=== PATIENT | female | born 1960 | race Caucasian/White ===

== ENCOUNTER 2016-05-17 18:07 | Emergency (ER) | payer MEDICARE ==
[2015-02-15 12:55] VITALS: BMI 33.3
[~2016-05-17 18:07] MED LIST: CYMBALTA60 MG PO; DESERYL100 MG PO; METOPROLOL TART50 MG PO; PREDNISONE20 MG PO; PRILOSEC20 MG PO; PROVENTIL HFA6.7 GM; PROVENTIL HFA6.7 GM INH
== END 2016-05-17 20:00 | disposition home or self-care (01) ==
LOC: D.ER 18:07
DX: S63.613A Unspecified sprain of left middle finger, initial encounter (principal); W19.XXXA Unspecified fall, initial encounter; Y93.89 Activity, other specified; Y92.89 Other specified places as the place of occurrence of the external cause; J44.9 Chronic obstructive pulmonary disease, unspecified; I10 Essential (primary) hypertension

== ENCOUNTER 2016-06-02 19:56 | Emergency (ER) | payer MEDICARE ==
[2015-02-15 12:55] VITALS: BMI 33.3
== END 2016-06-02 21:23 | disposition home or self-care (01) ==
LOC: D.ER 19:56
DX: M54.5 Low back pain (principal); F31.9 Bipolar disorder, unspecified; J44.9 Chronic obstructive pulmonary disease, unspecified; I10 Essential (primary) hypertension; E87.6 Hypokalemia

== ENCOUNTER 2016-06-09 14:43 | Emergency (ER) | payer MEDICARE ==
[2015-02-15 12:55] VITALS: BMI 33.3
== END 2016-06-09 18:17 | disposition home or self-care (01) ==
LOC: D.ER 14:43
DX: S89.92XA Unspecified injury of left lower leg, initial encounter (principal); X58.XXXA Exposure to other specified factors, initial encounter; Y93.89 Activity, other specified; Y92.019 Unspecified place in single-family (private) house as the place of occurrence of the external cause; F31.9 Bipolar disorder, unspecified; J44.9 Chronic obstructive pulmonary disease, unspecified; I10 Essential (primary) hypertension

== ENCOUNTER 2016-06-12 00:48 | Emergency (ER) | payer MEDICARE ==
[2015-02-15 12:55] VITALS: BMI 33.3
[2016-06-12 01:21] LABS: BASOPHILS 0.4 % (0.0-2.0); EOSINOPHILS 1.9 % (0-7); HEMATOCRIT 34.9 % (36.0-48.0); HEMOGLOBIN 11.6 g/dL (12-16); IMMATURE GRANULOCYTES 0.1 % (0-5); LYMPHOCYTES 29.2 % (15-50); MCH 31.2 pg (26.0-34.0); MCHC 33.2 g/dL (31.0-37.0); MCV 93.8 fL (80.0-100.0); MEAN PLATELET VOLUME 10.2 fL (7.4-10.4); MONOCYTES 6.6 % (2-11); NEUTROPHILS 61.8 % (40-80); PLATELET COUNT 306 10x3/uL (130-400); RBC 3.72 10x6/uL (4.00-5.40); RDW 13.3 % (11.5-14.5); WBC 6.8 10x3/uL (4.8-10.8)
[2016-06-12 01:34] LABS: ALBUMIN 3.5 g/dL (3.4-5.0); ALKALINE PHOSPHATASE 92 U/L (46-116); ALT (SGPT) 31 U/L (10-68); CALC OSMOLALITY 283 mosm/kg (275-300); CALCIUM 8.9 mg/dL (8.5-10.1); CARBON DIOXIDE 31.5 mmol/L (21.0-32.0); CHLORIDE - SERUM 102 mmol/L (98-107); CREATININE - SERUM 0.9 mg/dL (0.6-1.3); GLUCOSE 97 mg/dL (74-106); POTASSIUM - SERUM 4.2 mmol/L (3.5-5.1); PROTEIN - SERUM 6.8 g/dL (6.4-8.2); SODIUM 141 mmol/L (136-145); UREA NITROGEN 21 mg/dL (7-18); eGFR NON AFRICAN AMERICAN 69 mL/min (90-120)
[2016-06-12 01:45] LABS: CKMB 0.6 U/L (0.0-3.6); CREATINE KINASE 76 UL (21-215); TROPONIN-I < 0.017 ng/mL (0.000-0.060)
== END 2016-06-12 02:03 | disposition home or self-care (01) ==
LOC: D.ER 00:48
PROVIDERS: Emergency Medicine
DX: R07.89 Other chest pain (principal); K21.9 Gastro-esophageal reflux disease without esophagitis; F31.9 Bipolar disorder, unspecified; I10 Essential (primary) hypertension; E87.6 Hypokalemia

== ENCOUNTER 2016-06-15 19:42 | Emergency (ER) | payer MEDICARE ==
[2015-02-15 12:55] VITALS: BMI 33.3
== END 2016-06-15 20:30 | disposition home or self-care (01) ==
LOC: D.ER 19:42
DX: G43.909 Migraine, unspecified, not intractable, without status migrainosus (principal); J44.9 Chronic obstructive pulmonary disease, unspecified; I10 Essential (primary) hypertension; F31.9 Bipolar disorder, unspecified; E87.6 Hypokalemia; K21.9 Gastro-esophageal reflux disease without esophagitis

== ENCOUNTER 2016-06-17 19:17 | Emergency (ER) | payer MEDICARE ==
[2015-02-15 12:55] VITALS: BMI 33.3
== END 2016-06-17 22:40 | disposition home or self-care (01) ==
LOC: D.ER 19:17
DX: M54.5 Low back pain (principal); F31.9 Bipolar disorder, unspecified; J44.9 Chronic obstructive pulmonary disease, unspecified; K21.9 Gastro-esophageal reflux disease without esophagitis; I10 Essential (primary) hypertension; E87.6 Hypokalemia; F17.200 Nicotine dependence, unspecified, uncomplicated

== ENCOUNTER 2016-06-20 14:10 | Emergency (ER) | payer MEDICARE ==
[2015-02-15 12:55] VITALS: BMI 33.3
[2016-06-20 14:38] LABS: BASOPHILS 0.3 % (0.0-2.0); HEMATOCRIT 36.2 % (36.0-48.0); LYMPHOCYTES 27.7 % (15-50); MCHC 33.1 g/dL (31.0-37.0); MCV 93.5 fL (80.0-100.0); MEAN PLATELET VOLUME 10.2 fL (7.4-10.4); MONOCYTES 6.2 % (2-11); NEUTROPHILS 63.8 % (40-80); PLATELET COUNT 319 10x3/uL (130-400); RBC 3.87 10x6/uL (4.00-5.40); RDW 13.4 % (11.5-14.5); WBC 6.1 10x3/uL (4.8-10.8)
[2016-06-20 15:26] LABS: ALBUMIN 3.9 g/dL (3.4-5.0); ALKALINE PHOSPHATASE 99 U/L (46-116); ALT (SGPT) 26 U/L (10-68); BILIRUBIN - TOTAL 0.33 mg/dL (0.2-1.3); CALC OSMOLALITY 288 mosm/kg (275-300); CALCIUM 9.2 mg/dL (8.5-10.1); CARBON DIOXIDE 29.6 mmol/L (21.0-32.0); CHLORIDE - SERUM 104 mmol/L (98-107); CKMB 1.3 U/L (0.0-3.6); CREATINE KINASE 32 UL (21-215); CREATININE - SERUM 0.8 mg/dL (0.6-1.3); GLUCOSE 97 mg/dL (74-106); POTASSIUM - SERUM 3.7 mmol/L (3.5-5.1); PROTEIN - SERUM 6.8 g/dL (6.4-8.2); SODIUM 143 mmol/L (136-145); UREA NITROGEN 25 mg/dL (7-18); eGFR NON AFRICAN AMERICAN 79 mL/min (90-120)
[2016-06-20 15:27] LABS: TROPONIN-I < 0.017 ng/mL (0.000-0.060)
== END 2016-06-20 16:42 | disposition home or self-care (01) ==
LOC: D.ER 14:10
PROVIDERS: Emergency Medicine
DX: R07.89 Other chest pain (principal); R51 Headache; B34.9 Viral infection, unspecified; I10 Essential (primary) hypertension; F31.9 Bipolar disorder, unspecified; J44.9 Chronic obstructive pulmonary disease, unspecified; K21.9 Gastro-esophageal reflux disease without esophagitis

== ENCOUNTER 2016-06-22 15:41 | Emergency (ER) | payer MEDICARE ==
[2015-02-15 12:55] VITALS: BMI 33.3
== END 2016-06-22 20:58 | disposition home or self-care (01) ==
LOC: D.ER 15:41
DX: G43.909 Migraine, unspecified, not intractable, without status migrainosus (principal); R11.2 Nausea with vomiting, unspecified; F31.9 Bipolar disorder, unspecified

== ENCOUNTER 2016-06-24 19:16 | Emergency (ER) | payer MEDICARE ==
[2015-02-15 12:55] VITALS: BMI 33.3
== END 2016-06-24 22:45 | disposition home or self-care (01) ==
LOC: D.ER 19:16
DX: M54.5 Low back pain (principal); F31.9 Bipolar disorder, unspecified; I10 Essential (primary) hypertension

== ENCOUNTER 2016-06-28 11:37 | Emergency (ER) | payer MEDICARE ==
[2015-02-15 12:55] VITALS: BMI 33.3
== END 2016-06-28 14:40 | disposition home or self-care (01) ==
LOC: D.ER 11:37
DX: M25.461 Effusion, right knee (principal); F31.9 Bipolar disorder, unspecified; I10 Essential (primary) hypertension

== ENCOUNTER 2016-07-02 16:28 | Emergency (ER) | payer MEDICARE ==
[2015-02-15 12:55] VITALS: BMI 33.3
== END 2016-07-02 17:18 | disposition home or self-care (01) ==
LOC: D.ER 16:28
DX: M25.472 Effusion, left ankle (principal); S99.912A Unspecified injury of left ankle, initial encounter; W19.XXXA Unspecified fall, initial encounter; Y93.89 Activity, other specified; Y92.019 Unspecified place in single-family (private) house as the place of occurrence of the external cause

== ENCOUNTER 2016-07-04 15:23 | Emergency (ER) | payer MEDICARE ==
[2015-02-15 12:55] VITALS: BMI 33.3
== END 2016-07-04 17:30 | disposition home or self-care (01) ==
LOC: D.ER 15:23
DX: J20.9 Acute bronchitis, unspecified (principal); F31.9 Bipolar disorder, unspecified; I10 Essential (primary) hypertension; J44.9 Chronic obstructive pulmonary disease, unspecified; K21.9 Gastro-esophageal reflux disease without esophagitis; G47.00 Insomnia, unspecified

== ENCOUNTER 2016-07-09 16:02 | Emergency (ER) | payer MEDICARE ==
[2015-02-15 12:55] VITALS: BMI 33.3
== END 2016-07-09 16:06 | disposition left against medical advice (07) ==
LOC: D.ER 16:02
DX: Z02.9 Encounter for administrative examinations, unspecified (principal)

== ENCOUNTER → 2016-07-09 17:47 | Emergency (ER) | payer MEDICARE ==
[2015-02-15 12:55] VITALS: BMI 33.3
== END | disposition left against medical advice (07) ==
LOC: D.ER 17:47
DX: Z02.9 Encounter for administrative examinations, unspecified (principal)

== ENCOUNTER 2016-07-09 21:07 | Emergency (ER) | payer MEDICARE ==
[2015-02-15 12:55] VITALS: BMI 33.3
== END 2016-07-10 00:31 | disposition home or self-care (01) ==
LOC: D.ER 21:07
DX: M51.36 Other intervertebral disc degeneration, lumbar region (principal); M54.5 Low back pain; K21.9 Gastro-esophageal reflux disease without esophagitis; F31.9 Bipolar disorder, unspecified; J44.9 Chronic obstructive pulmonary disease, unspecified; I10 Essential (primary) hypertension; G47.00 Insomnia, unspecified

== ENCOUNTER 2016-07-10 16:42 | Emergency (ER) | payer MEDICARE ==
[2015-02-15 12:55] VITALS: BMI 33.3
== END 2016-07-10 19:17 | disposition home or self-care (01) ==
LOC: D.ER 16:42
DX: R10.13 Epigastric pain (principal); F43.9 Reaction to severe stress, unspecified

== ENCOUNTER 2016-07-14 17:47 | Emergency (ER) | payer MEDICARE ==
[2015-02-15 12:55] VITALS: BMI 33.3
== END 2016-07-14 19:59 | disposition home or self-care (01) ==
LOC: D.ER 17:47
DX: M54.5 Low back pain (principal)

== ENCOUNTER 2016-07-18 14:09 | Emergency (ER) | payer MEDICARE ==
[2015-02-15 12:55] VITALS: BMI 33.3
== END 2016-07-18 16:18 | disposition home or self-care (01) ==
LOC: D.ER 14:09
DX: G43.909 Migraine, unspecified, not intractable, without status migrainosus (principal); K21.9 Gastro-esophageal reflux disease without esophagitis; F31.9 Bipolar disorder, unspecified; J44.9 Chronic obstructive pulmonary disease, unspecified; I10 Essential (primary) hypertension; G47.00 Insomnia, unspecified

== ENCOUNTER 2016-07-27 17:51 | Emergency (ER) | payer MEDICARE ==
[2015-02-15 12:55] VITALS: BMI 33.3
== END 2016-07-28 01:22 | disposition left against medical advice (07) ==
LOC: D.ER 17:51
DX: R07.9 Chest pain, unspecified (principal)

== ENCOUNTER 2016-07-28 19:40 | Emergency (ER) | payer MEDICARE ==
[2015-02-15 12:55] VITALS: BMI 33.3
== END 2016-07-28 21:05 | disposition home or self-care (01) ==
LOC: D.ER 19:40
DX: F41.9 Anxiety disorder, unspecified (principal); K21.9 Gastro-esophageal reflux disease without esophagitis; F31.9 Bipolar disorder, unspecified; J44.9 Chronic obstructive pulmonary disease, unspecified; F32.9 Major depressive disorder, single episode, unspecified; I10 Essential (primary) hypertension; G47.00 Insomnia, unspecified

== ENCOUNTER 2016-08-02 18:19 | Emergency (ER) | payer MEDICARE ==
[2015-02-15 12:55] VITALS: BMI 33.3
[2016-08-02 19:17] LABS: BASOPHILS 0.5 % (0.0-2.0); EOSINOPHILS 1.6 % (0-7); HEMATOCRIT 35.9 % (36.0-48.0); IMMATURE GRANULOCYTES 0.2 % (0-5); LYMPHOCYTES 25.4 % (15-50); MCH 31.1 pg (26.0-34.0); MCHC 33.4 g/dL (31.0-37.0); MEAN PLATELET VOLUME 9.2 fL (7.4-10.4); MONOCYTES 7.3 % (2-11); PLATELET COUNT 379 10x3/uL (130-400); RBC 3.86 10x6/uL (4.00-5.40); RDW 13.7 % (11.5-14.5); WBC 6.3 10x3/uL (4.8-10.8)
[2016-08-02 19:18] LABS: APPEARANCE CLEAR (CLEAR); BILIRUBIN NEGATIVE (NEGATIVE); COLOR YELLOW (YELLOW); GLUCOSE NEGATIVE (NEGATIVE); KETONE NEGATIVE (NEGATIVE); LEUKOCYTE ESTERASE NEGATIVE (NEGATIVE); NITRITE NEGATIVE (NEGATIVE); PROTEIN NEGATIVE (NEGATIVE); SPECIFIC GRAVITY 1.015 (1.005-1.020); UROBILINOGEN NORMAL (NORMAL)
[2016-08-02 19:51] LABS: AMYLASE - SERUM 64 U/L (25-115)
[2016-08-02 23:50] LABS: LIPASE 199 U/L (73-393)
== END 2016-08-03 00:55 | disposition home or self-care (01) ==
LOC: D.ER 18:19
PROVIDERS: Emergency Medicine
DX: R10.13 Epigastric pain (principal); K44.9 Diaphragmatic hernia without obstruction or gangrene; F31.9 Bipolar disorder, unspecified; I10 Essential (primary) hypertension; J44.9 Chronic obstructive pulmonary disease, unspecified

== ENCOUNTER 2016-08-05 16:05 | Emergency (ER) | payer MEDICARE ==
[2015-02-15 12:55] VITALS: BMI 33.3
== END 2016-08-05 20:55 | disposition home or self-care (01) ==
LOC: D.ER 16:05
DX: S99.922A Unspecified injury of left foot, initial encounter (principal); W22.8XXA Striking against or struck by other objects, initial encounter; Y93.89 Activity, other specified; Y92.019 Unspecified place in single-family (private) house as the place of occurrence of the external cause; J44.9 Chronic obstructive pulmonary disease, unspecified; I10 Essential (primary) hypertension; F31.9 Bipolar disorder, unspecified

== ENCOUNTER 2016-08-16 18:06 | Emergency (ER) | payer MEDICARE ==
[2015-02-15 12:55] VITALS: BMI 33.3
== END 2016-08-16 21:25 | disposition left against medical advice (07) ==
LOC: D.ER 18:06
DX: R51 Headache (principal)

== ENCOUNTER 2016-08-17 18:28 | Emergency (ER) | payer MEDICARE ==
[2015-02-15 12:55] VITALS: BMI 33.3
== END 2016-08-17 20:18 | disposition home or self-care (01) ==
LOC: D.ER 18:28
DX: S69.92XA Unspecified injury of left wrist, hand and finger(s), initial encounter (principal); W01.0XXA Fall on same level from slipping, tripping and stumbling without subsequent striking against object, initial encounter; Y93.89 Activity, other specified; Y92.019 Unspecified place in single-family (private) house as the place of occurrence of the external cause; M79.642 Pain in left hand; S63.92XA Sprain of unspecified part of left wrist and hand, initial encounter; F31.9 Bipolar disorder, unspecified; I10 Essential (primary) hypertension

== ENCOUNTER 2016-08-20 16:53 | Emergency (ER) | payer MEDICARE ==
[2015-02-15 12:55] VITALS: BMI 33.3
== END 2016-08-20 21:05 | disposition home or self-care (01) ==
LOC: D.ER 16:53
DX: G43.909 Migraine, unspecified, not intractable, without status migrainosus (principal); R51 Headache; E86.0 Dehydration; I10 Essential (primary) hypertension; F32.9 Major depressive disorder, single episode, unspecified

== ENCOUNTER 2016-08-26 10:09 | Emergency (ER) | payer MEDICARE | END 2016-08-26 11:20 | disposition home or self-care (01) | LOC: D.ER 10:09 | DX: M54.5 Low back pain (principal); I10 Essential (primary) hypertension; F31.9 Bipolar disorder, unspecified; F17.200 Nicotine dependence, unspecified, uncomplicated ==

== ENCOUNTER 2016-08-29 13:06 | Emergency (ER) | payer MEDICARE ==
[2015-02-15 12:55] VITALS: BMI 33.3
== END 2016-08-29 16:45 | disposition home or self-care (01) ==
LOC: D.ER 13:06
DX: Z03.89 Encounter for observation for other suspected diseases and conditions ruled out (principal); F31.9 Bipolar disorder, unspecified; M54.5 Low back pain; I10 Essential (primary) hypertension

== ENCOUNTER 2016-09-01 13:08 | Emergency (ER) | payer MEDICARE ==
[2015-02-15 12:55] VITALS: BMI 33.3
== END 2016-09-01 14:42 | disposition home or self-care (01) ==
LOC: D.ER 13:08
DX: M54.5 Low back pain (principal); Z03.89 Encounter for observation for other suspected diseases and conditions ruled out; I10 Essential (primary) hypertension; F31.9 Bipolar disorder, unspecified; J44.9 Chronic obstructive pulmonary disease, unspecified

== ENCOUNTER 2016-09-03 19:03 | Emergency (ER) | payer MEDICARE ==
[2015-02-15 12:55] VITALS: BMI 33.3
== END 2016-09-03 23:40 | disposition home or self-care (01) ==
LOC: D.ER 19:03
DX: J20.9 Acute bronchitis, unspecified (principal); F31.89 Other bipolar disorder; M54.5 Low back pain; J44.9 Chronic obstructive pulmonary disease, unspecified; I10 Essential (primary) hypertension

== ENCOUNTER 2016-09-08 11:32 | Emergency (ER) | payer MEDICARE ==
[2015-02-15 12:55] VITALS: BMI 33.3
== END 2016-09-08 15:05 | disposition left against medical advice (07) ==
LOC: D.ER 11:32
DX: M54.5 Low back pain (principal)

== ENCOUNTER 2016-09-08 20:31 | Emergency (ER) | payer MEDICARE ==
[2015-02-15 12:55] VITALS: BMI 33.3
== END 2016-09-08 22:03 | disposition home or self-care (01) ==
LOC: D.ER 20:31
DX: Z76.5 Malingerer [conscious simulation] (principal)

== ENCOUNTER → 2016-09-17 12:03 | Emergency (ER) | payer MEDICARE ==
[2015-02-15 12:55] VITALS: BMI 33.3
== END | disposition left against medical advice (07) ==
LOC: D.ER 12:03
DX: Z02.9 Encounter for administrative examinations, unspecified (principal)

== ENCOUNTER 2016-09-18 13:41 | Emergency (ER) | payer MEDICARE ==
[2015-02-15 12:55] VITALS: BMI 33.3
== END 2016-09-18 16:41 | disposition home or self-care (01) ==
LOC: D.ER 13:41
DX: R51 Headache (principal); I10 Essential (primary) hypertension; F31.89 Other bipolar disorder

== ENCOUNTER → 2016-09-26 | Emergency (ER) | payer MEDICARE ==
[2015-02-15 12:55] VITALS: BMI 33.3
== END ==
LOC: D.ER 18:41
DX: G43.909 Migraine, unspecified, not intractable, without status migrainosus (principal); H60.501 Unspecified acute noninfective otitis externa, right ear; F31.89 Other bipolar disorder; I10 Essential (primary) hypertension

== ENCOUNTER 2016-10-04 19:14 | Emergency (ER) | payer MEDICARE ==
[2015-02-15 12:55] VITALS: BMI 33.3
[2016-10-04 20:36] LABS: BASOPHILS 0.3 % (0-2); EOSINOPHILS 2.3 % (0-7); HEMATOCRIT 35.5 % (36.0-48.0); IMMATURE GRANULOCYTES 0.2 % (0-5); LYMPHOCYTES 29.4 % (15-50); MCH 31.9 pg (26.0-34.0); MCHC 33.8 g/dL (31.0-37.0); MCV 94.4 fL (80.0-100.0); MEAN PLATELET VOLUME 9.8 fL (7.4-10.4); MONOCYTES 4.7 % (2-11); NEUTROPHILS 63.1 % (40-80); PLATELET COUNT 344 10x3/uL (130-400); RBC 3.76 10x6/uL (4.00-5.40); RDW 13.4 % (11.5-14.5); WBC 6.4 10x3/uL (4.8-10.8)
[2016-10-04 20:57] LABS: ALBUMIN 3.6 g/dL (3.4-5.0); ALKALINE PHOSPHATASE 83 U/L (46-116); ALT (SGPT) 23 U/L (10-68); BILIRUBIN - TOTAL 0.34 mg/dL (0.2-1.3); CALC OSMOLALITY 280 mosm/kg (275-300); CALCIUM 9.3 mg/dL (8.5-10.1); CARBON DIOXIDE 29.7 mmol/L (21.0-32.0); CHLORIDE - SERUM 104 mmol/L (98-107); CREATININE - SERUM 0.8 mg/dL (0.6-1.3); GLUCOSE 90 mg/dL (74-106); POTASSIUM - SERUM 4.4 mmol/L (3.5-5.1); PROTEIN - SERUM 7.2 g/dL (6.4-8.2); SODIUM 140 mmol/L (136-145); UREA NITROGEN 18 mg/dL (7-18); eGFR NON AFRICAN AMERICAN 79 mL/min (90-120)
[2016-10-04 21:12] LABS: CKMB 0.4 U/L (0.0-3.6); CREATINE KINASE 72 UL (21-215); TROPONIN-I < 0.017 ng/mL (0.000-0.060)
== END 2016-10-05 01:06 | disposition home or self-care (01) ==
LOC: D.ER 19:14
PROVIDERS: Emergency Medicine
DX: R07.9 Chest pain, unspecified (principal); F31.89 Other bipolar disorder; I10 Essential (primary) hypertension

== ENCOUNTER 2016-10-18 18:57 | Emergency (ER) | payer MEDICARE ==
[2015-02-15 12:55] VITALS: BMI 33.3
== END 2016-10-18 23:55 | disposition home or self-care (01) ==
LOC: D.ER 18:57
DX: G43.909 Migraine, unspecified, not intractable, without status migrainosus (principal); I10 Essential (primary) hypertension; F31.89 Other bipolar disorder

== ENCOUNTER 2016-10-27 21:55 | Emergency (ER) | payer MEDICARE ==
[2015-02-15 12:55] VITALS: BMI 33.3
[2016-10-27 22:22] LABS: APPEARANCE CLEAR (CLEAR); BILIRUBIN NEGATIVE (NEGATIVE); COLOR YELLOW (YELLOW); GLUCOSE NEGATIVE (NEGATIVE); KETONE NEGATIVE (NEGATIVE); LEUKOCYTE ESTERASE TRACE (NEGATIVE); NITRITE NEGATIVE (NEGATIVE); PROTEIN NEGATIVE (NEGATIVE); UROBILINOGEN NORMAL (NORMAL)
[2016-10-27 22:23] LABS: BACTERIA MODERATE /hpf (NONE SEEN); EPITHELIAL CELLS 0-5 /hpf (0-5); RED CELLS - URINE OCC /hpf (0-5)
[2016-10-27 22:59] LABS: BASOPHILS 0.4 % (0-2); HEMATOCRIT 35.9 % (36.0-48.0); IMMATURE GRANULOCYTES 0.2 % (0-5); MCHC 33.4 g/dL (31.0-37.0); MCV 95.7 fL (80.0-100.0); MONOCYTES 9.1 % (2-11); NEUTROPHILS 57.3 % (40-80); PLATELET COUNT 346 10x3/uL (130-400); RBC 3.75 10x6/uL (4.00-5.40); WBC 5.1 10x3/uL (4.8-10.8)
== END 2016-10-28 00:51 | disposition home or self-care (01) ==
LOC: D.ER 21:55
PROVIDERS: Family Medicine
DX: R10.9 Unspecified abdominal pain (principal); N39.0 Urinary tract infection, site not specified; R11.10 Vomiting, unspecified; K21.9 Gastro-esophageal reflux disease without esophagitis; I10 Essential (primary) hypertension; F31.89 Other bipolar disorder

== ENCOUNTER 2016-10-31 20:39 | Emergency (ER) | payer MEDICARE ==
[2015-02-15 12:55] VITALS: BMI 33.3
== END 2016-10-31 22:40 | disposition home or self-care (01) ==
LOC: D.ER 20:39
DX: G43.909 Migraine, unspecified, not intractable, without status migrainosus (principal); I10 Essential (primary) hypertension; K21.9 Gastro-esophageal reflux disease without esophagitis

== ENCOUNTER 2016-11-03 17:41 | Emergency (ER) | payer MEDICARE ==
[2015-02-15 12:55] VITALS: BMI 33.3
== END 2016-11-03 20:40 | disposition home or self-care (01) ==
LOC: D.ER 17:41
DX: G43.909 Migraine, unspecified, not intractable, without status migrainosus (principal); F31.89 Other bipolar disorder; K21.9 Gastro-esophageal reflux disease without esophagitis; I10 Essential (primary) hypertension

== ENCOUNTER 2016-11-06 21:50 | Emergency (ER) | payer MEDICARE ==
[2015-02-15 12:55] VITALS: BMI 33.3
== END 2016-11-07 00:26 | disposition home or self-care (01) ==
LOC: D.ER 21:50
DX: S22.31XA Fracture of one rib, right side, initial encounter for closed fracture (principal); W19.XXXA Unspecified fall, initial encounter; I10 Essential (primary) hypertension

== ENCOUNTER 2016-11-16 09:19 | Emergency (ER) | payer MEDICARE ==
[2015-02-15 12:55] VITALS: BMI 33.3
== END 2016-11-16 10:17 | disposition home or self-care (01) ==
LOC: D.ER 09:19
DX: G43.909 Migraine, unspecified, not intractable, without status migrainosus (principal); K21.9 Gastro-esophageal reflux disease without esophagitis; I10 Essential (primary) hypertension

== ENCOUNTER 2016-11-19 22:06 | Emergency (ER) | payer MEDICARE ==
[2015-02-15 12:55] VITALS: BMI 33.3
== END 2016-11-19 23:20 | disposition home or self-care (01) ==
LOC: D.ER 22:06
DX: G43.909 Migraine, unspecified, not intractable, without status migrainosus (principal); K21.9 Gastro-esophageal reflux disease without esophagitis; I10 Essential (primary) hypertension

== ENCOUNTER 2016-11-24 01:16 | Emergency (ER) | payer MEDICARE ==
[2015-02-15 12:55] VITALS: BMI 33.3
[2016-11-24 02:14] LABS: BASOPHILS 0.5 % (0-2); EOSINOPHILS 3.2 % (0-7); HEMATOCRIT 33.1 % (36.0-48.0); HEMOGLOBIN 11.4 g/dL (12-16); IMMATURE GRANULOCYTES 0.3 % (0-5); LYMPHOCYTES 26.5 % (15-50); MCH 32.2 pg (26.0-34.0); MCHC 34.4 g/dL (31.0-37.0); MCV 93.5 fL (80.0-100.0); MEAN PLATELET VOLUME 9.8 fL (7.4-10.4); MONOCYTES 9.1 % (2-11); NEUTROPHILS 60.4 % (40-80); PLATELET COUNT 330 10x3/uL (130-400); RBC 3.54 10x6/uL (4.00-5.40); RDW 12.9 % (11.5-14.5); WBC 6.3 10x3/uL (4.8-10.8)
[2016-11-24 02:30] LABS: ALBUMIN 3.7 g/dL (3.4-5.0); ANION GAP 13.3 mmol/L (8-16); BILIRUBIN - TOTAL 0.41 mg/dL (0.2-1.3); CALCIUM 8.7 mg/dL (8.5-10.1); CARBON DIOXIDE 29.1 mmol/L (21.0-32.0); CREATININE - SERUM 1.2 mg/dL (0.6-1.3); POTASSIUM - SERUM 3.4 mmol/L (3.5-5.1)
== END 2016-11-24 03:33 | disposition home or self-care (01) ==
LOC: D.ER 01:16
PROVIDERS: Emergency Medicine
DX: R51 Headache (principal); F17.200 Nicotine dependence, unspecified, uncomplicated; F31.89 Other bipolar disorder; K21.9 Gastro-esophageal reflux disease without esophagitis; I10 Essential (primary) hypertension

== ENCOUNTER 2016-11-28 21:32 | Emergency (ER) | payer MEDICARE ==
[2015-02-15 12:55] VITALS: BMI 33.3
== END 2016-11-28 22:53 | disposition home or self-care (01) ==
LOC: D.ER 21:32
DX: G43.909 Migraine, unspecified, not intractable, without status migrainosus (principal); K21.9 Gastro-esophageal reflux disease without esophagitis; I10 Essential (primary) hypertension

== ENCOUNTER 2016-12-01 17:30 | Emergency (ER) | payer MEDICARE ==
[2015-02-15 12:55] VITALS: BMI 33.3
== END 2016-12-01 21:28 | disposition home or self-care (01) ==
LOC: D.ER 17:30
DX: G43.909 Migraine, unspecified, not intractable, without status migrainosus (principal); K21.9 Gastro-esophageal reflux disease without esophagitis; I10 Essential (primary) hypertension

== ENCOUNTER 2016-12-04 20:52 | Emergency (ER) | payer MEDICARE ==
[2015-02-15 12:55] VITALS: BMI 33.3
== END 2016-12-04 23:32 | disposition home or self-care (01) ==
LOC: D.ER 20:52
DX: M54.5 Low back pain (principal); I10 Essential (primary) hypertension

== ENCOUNTER 2016-12-07 07:31 | Emergency (ER) | payer MEDICARE ==
[2015-02-15 12:55] VITALS: BMI 33.3
== END 2016-12-07 09:05 | disposition home or self-care (01) ==
LOC: D.ER 07:31
DX: R51 Headache (principal); I10 Essential (primary) hypertension; F17.200 Nicotine dependence, unspecified, uncomplicated

== ENCOUNTER 2016-12-10 08:22 | Emergency (ER) | payer MEDICARE ==
[2015-02-15 12:55] VITALS: BMI 33.3
== END 2016-12-10 09:07 | disposition home or self-care (01) ==
LOC: D.ER 08:22
DX: G43.909 Migraine, unspecified, not intractable, without status migrainosus (principal)

== ENCOUNTER 2016-12-14 21:24 | Emergency (ER) | payer MEDICARE ==
[2015-02-15 12:55] VITALS: BMI 33.3
== END 2016-12-14 23:30 | disposition left against medical advice (07) ==
LOC: D.ER 21:24
DX: M54.5 Low back pain (principal)

== ENCOUNTER 2016-12-29 20:29 | Emergency (ER) | payer MEDICARE ==
[2015-02-15 12:55] VITALS: BMI 33.3
== END 2016-12-30 00:25 | disposition home or self-care (01) ==
LOC: D.ER 20:29
DX: G43.909 Migraine, unspecified, not intractable, without status migrainosus (principal); I10 Essential (primary) hypertension

== ENCOUNTER 2017-01-05 18:38 | Emergency (ER) | payer MEDICARE ==
[2015-02-15 12:55] VITALS: BMI 33.3
== END 2017-01-05 20:33 | disposition home or self-care (01) ==
LOC: D.ER 18:38
DX: R11.0 Nausea (principal); R51 Headache; M54.9 Dorsalgia, unspecified; I10 Essential (primary) hypertension

== ENCOUNTER 2017-01-08 19:46 | Emergency (ER) | payer MEDICARE ==
[2015-02-15 12:55] VITALS: BMI 33.3
== END 2017-01-08 20:57 | disposition home or self-care (01) ==
LOC: D.ER 19:46
DX: G43.909 Migraine, unspecified, not intractable, without status migrainosus (principal); I10 Essential (primary) hypertension

== ENCOUNTER 2017-01-12 12:52 | Emergency (ER) | payer MEDICARE ==
[2015-02-15 12:55] VITALS: BMI 33.3
== END 2017-01-12 13:39 | disposition home or self-care (01) ==
LOC: D.ER 12:52
DX: G43.909 Migraine, unspecified, not intractable, without status migrainosus (principal)

== ENCOUNTER 2017-01-14 20:34 | Emergency (ER) | payer MEDICARE ==
[2015-02-15 12:55] VITALS: BMI 33.3
== END 2017-01-14 23:21 | disposition home or self-care (01) ==
LOC: D.ER 20:34
DX: R51 Headache (principal); I10 Essential (primary) hypertension

== ENCOUNTER 2017-01-30 15:37 | Emergency (ER) | payer MEDICARE ==
[2015-02-15 12:55] VITALS: BMI 33.3
== END 2017-01-30 16:55 | disposition home or self-care (01) ==
LOC: D.ER 15:37
DX: R51 Headache (principal); I10 Essential (primary) hypertension

== ENCOUNTER 2017-02-20 16:27 | Emergency (ER) | payer MEDICARE ==
[2015-02-15 12:55] VITALS: BMI 33.3
== END 2017-02-20 19:45 | disposition home or self-care (01) ==
LOC: D.ER 16:27
DX: S70.01XA Contusion of right hip, initial encounter (principal); W19.XXXA Unspecified fall, initial encounter; Y93.89 Activity, other specified; Y92.029 Unspecified place in mobile home as the place of occurrence of the external cause; G89.29 Other chronic pain; I10 Essential (primary) hypertension

== ENCOUNTER 2017-03-02 23:56 | Emergency (ER) | payer MEDICARE ==
[2015-02-15 12:55] VITALS: BMI 33.3
== END 2017-03-03 00:55 | disposition home or self-care (01) ==
LOC: D.ER 23:56
DX: G43.909 Migraine, unspecified, not intractable, without status migrainosus (principal); I10 Essential (primary) hypertension

== ENCOUNTER 2017-03-12 21:26 | Emergency (ER) | payer MEDICARE ==
[2015-02-15 12:55] VITALS: BMI 33.3
== END 2017-03-12 22:05 | disposition home or self-care (01) ==
LOC: D.ER 21:26
DX: G43.909 Migraine, unspecified, not intractable, without status migrainosus (principal); I10 Essential (primary) hypertension

== ENCOUNTER 2017-03-14 20:26 | Emergency (ER) | payer MEDICARE ==
[2015-02-15 12:55] VITALS: BMI 33.3
== END 2017-03-14 21:27 | disposition home or self-care (01) ==
LOC: D.ER 20:26
DX: M54.5 Low back pain (principal); I10 Essential (primary) hypertension

== ENCOUNTER 2017-03-17 12:24 | Emergency (ER) | payer MEDICARE ==
[2015-02-15 12:55] VITALS: BMI 33.3
== END 2017-03-17 13:54 | disposition home or self-care (01) ==
LOC: D.ER 12:24
DX: G43.909 Migraine, unspecified, not intractable, without status migrainosus (principal); I10 Essential (primary) hypertension

== ENCOUNTER 2017-03-28 19:19 | Emergency (ER) | payer MEDICARE ==
[2015-02-15 12:55] VITALS: BMI 33.3
== END 2017-03-28 22:38 | disposition home or self-care (01) ==
LOC: D.ER 19:19
DX: R51 Headache (principal); Z76.5 Malingerer [conscious simulation]; I10 Essential (primary) hypertension

== ENCOUNTER 2017-03-29 16:02 | Emergency (ER) | payer MEDICARE ==
[2015-02-15 12:55] VITALS: BMI 33.3
== END 2017-03-29 17:57 | disposition home or self-care (01) ==
LOC: D.ER 16:02
DX: G43.909 Migraine, unspecified, not intractable, without status migrainosus (principal); I10 Essential (primary) hypertension

== ENCOUNTER 2017-04-02 22:16 | Emergency (ER) | payer MEDICARE ==
[2015-02-15 12:55] VITALS: BMI 33.3
== END 2017-04-02 23:34 | disposition home or self-care (01) ==
LOC: D.ER 22:16
DX: G43.909 Migraine, unspecified, not intractable, without status migrainosus (principal); I10 Essential (primary) hypertension

== ENCOUNTER 2017-04-03 19:51 | Emergency (ER) | payer MEDICARE ==
[2015-02-15 12:55] VITALS: BMI 33.3
== END 2017-04-03 21:45 | disposition home or self-care (01) ==
LOC: D.ER 19:51
DX: J20.9 Acute bronchitis, unspecified (principal)

== ENCOUNTER 2017-04-04 16:46 | Emergency (ER) | payer MEDICARE ==
[2015-02-15 12:55] VITALS: BMI 33.3
== END 2017-04-04 18:46 | disposition home or self-care (01) ==
LOC: D.ER 16:46
DX: J20.9 Acute bronchitis, unspecified (principal); J44.9 Chronic obstructive pulmonary disease, unspecified

== ENCOUNTER 2017-04-06 16:38 | Emergency (ER) | payer MEDICARE ==
[2015-02-15 12:55] VITALS: BMI 33.3
== END 2017-04-06 19:14 | disposition home or self-care (01) ==
LOC: D.ER 16:38
DX: G43.909 Migraine, unspecified, not intractable, without status migrainosus (principal)

== ENCOUNTER 2017-04-09 13:52 | Emergency (ER) | payer MEDICARE ==
[2015-02-15 12:55] VITALS: BMI 33.3
== END 2017-04-09 15:22 | disposition home or self-care (01) ==
LOC: D.ER 13:52
DX: S60.051A Contusion of right little finger without damage to nail, initial encounter (principal); W20.8XXA Other cause of strike by thrown, projected or falling object, initial encounter; Y93.89 Activity, other specified; Y92.019 Unspecified place in single-family (private) house as the place of occurrence of the external cause; J44.9 Chronic obstructive pulmonary disease, unspecified

== ENCOUNTER 2017-04-14 22:35 | Emergency (ER) | payer MEDICARE ==
[2015-02-15 12:55] VITALS: BMI 33.3
== END 2017-04-14 23:37 | disposition home or self-care (01) ==
LOC: D.ER 22:35
DX: G43.909 Migraine, unspecified, not intractable, without status migrainosus (principal)

== ENCOUNTER 2017-04-16 11:57 | Emergency (ER) | payer MEDICARE ==
[2015-02-15 12:55] VITALS: BMI 33.3
== END 2017-04-16 13:33 | disposition home or self-care (01) ==
LOC: D.ER 11:57
DX: G43.909 Migraine, unspecified, not intractable, without status migrainosus (principal); I10 Essential (primary) hypertension

== ENCOUNTER 2017-04-18 20:27 | Emergency (ER) | payer MEDICARE ==
[2015-02-15 12:55] VITALS: BMI 33.3
== END 2017-04-18 21:51 | disposition home or self-care (01) ==
LOC: D.ER 20:27
DX: S39.012A Strain of muscle, fascia and tendon of lower back, initial encounter (principal); X58.XXXA Exposure to other specified factors, initial encounter; Y93.89 Activity, other specified; Y92.89 Other specified places as the place of occurrence of the external cause; I10 Essential (primary) hypertension

== ENCOUNTER 2017-04-30 13:31 | Emergency (ER) | payer MEDICARE ==
[2015-02-15 12:55] VITALS: BMI 33.3
== END 2017-04-30 17:06 | disposition home or self-care (01) ==
LOC: D.ER 13:31
DX: G43.909 Migraine, unspecified, not intractable, without status migrainosus (principal); I10 Essential (primary) hypertension; F17.200 Nicotine dependence, unspecified, uncomplicated

== ENCOUNTER 2017-05-04 17:58 | Emergency (ER) | payer MEDICARE ==
[2015-02-15 12:55] VITALS: BMI 33.3
== END 2017-05-04 20:44 | disposition home or self-care (01) ==
LOC: D.ER 17:58
DX: G43.909 Migraine, unspecified, not intractable, without status migrainosus (principal); I10 Essential (primary) hypertension

== ENCOUNTER 2017-05-07 18:29 | Emergency (ER) | payer MEDICARE ==
[2015-02-15 12:55] VITALS: BMI 33.3
== END 2017-05-07 19:45 | disposition home or self-care (01) ==
LOC: D.ER 18:29
DX: J06.9 Acute upper respiratory infection, unspecified (principal); G43.909 Migraine, unspecified, not intractable, without status migrainosus; I10 Essential (primary) hypertension

== ENCOUNTER 2017-05-18 17:17 | Emergency (ER) | payer MEDICARE ==
[2015-02-15 12:55] VITALS: BMI 33.3
== END 2017-05-18 19:22 | disposition home or self-care (01) ==
LOC: D.ER 17:17
DX: G43.909 Migraine, unspecified, not intractable, without status migrainosus (principal)

== ENCOUNTER 2017-05-26 21:03 | Emergency (ER) | payer MEDICARE ==
[2015-02-15 12:55] VITALS: BMI 33.3
== END 2017-05-27 00:32 | disposition home or self-care (01) ==
LOC: D.ER 21:03
DX: R51 Headache (principal)

== ENCOUNTER 2017-05-27 20:33 | Emergency (ER) | payer MEDICARE ==
[2015-02-15 12:55] VITALS: BMI 33.3
== END 2017-05-27 22:20 | disposition home or self-care (01) ==
LOC: D.ER 20:33
DX: G43.909 Migraine, unspecified, not intractable, without status migrainosus (principal); I10 Essential (primary) hypertension

== ENCOUNTER 2017-05-30 18:34 | Emergency (ER) | payer MEDICARE ==
[2015-02-15 12:55] VITALS: BMI 33.3
== END 2017-05-30 21:34 | disposition home or self-care (01) ==
LOC: D.ER 18:34
DX: G43.909 Migraine, unspecified, not intractable, without status migrainosus (principal); I10 Essential (primary) hypertension

== ENCOUNTER 2017-06-01 23:10 | Emergency (ER) | payer MEDICARE ==
[2015-02-15 12:55] VITALS: BMI 33.3
== END 2017-06-02 01:47 | disposition home or self-care (01) ==
LOC: D.ER 23:10
DX: G43.909 Migraine, unspecified, not intractable, without status migrainosus (principal); I10 Essential (primary) hypertension

== ENCOUNTER 2017-06-05 15:52 | Emergency (ER) | payer MEDICARE ==
[2015-02-15 12:55] VITALS: BMI 33.3
== END 2017-06-05 17:25 | disposition home or self-care (01) ==
LOC: D.ER 15:52
DX: R51 Headache (principal); Z76.5 Malingerer [conscious simulation]; I10 Essential (primary) hypertension

== ENCOUNTER 2017-06-06 19:00 | Emergency (ER) | payer MEDICARE ==
[2015-02-15 12:55] VITALS: BMI 33.3
== END 2017-06-06 23:02 | disposition home or self-care (01) ==
LOC: D.ER 19:00
DX: G43.909 Migraine, unspecified, not intractable, without status migrainosus (principal); I10 Essential (primary) hypertension

== ENCOUNTER → 2017-06-08 20:53 | Emergency (ER) | payer MEDICARE ==
[2015-02-15 12:55] VITALS: BMI 33.3
== END | disposition left against medical advice (07) ==
LOC: D.ER 20:53
DX: Z02.9 Encounter for administrative examinations, unspecified (principal)

== ENCOUNTER 2017-06-09 10:09 | Emergency (ER) | payer MEDICARE ==
[2015-02-15 12:55] VITALS: BMI 33.3
== END 2017-06-09 11:58 | disposition home or self-care (01) ==
LOC: D.ER 10:09
DX: G43.909 Migraine, unspecified, not intractable, without status migrainosus (principal); I10 Essential (primary) hypertension

== ENCOUNTER 2017-06-11 07:53 | Emergency (ER) | payer MEDICARE ==
[2015-02-15 12:55] VITALS: BMI 33.3
== END 2017-06-11 08:32 | disposition home or self-care (01) ==
LOC: D.ER 07:53
DX: G44.209 Tension-type headache, unspecified, not intractable (principal); I10 Essential (primary) hypertension

== ENCOUNTER 2017-07-05 21:51 | Emergency (ER) | payer MEDICARE ==
[2015-02-15 12:55] VITALS: BMI 33.3
== END 2017-07-05 23:00 | disposition home or self-care (01) ==
LOC: D.ER 21:51
DX: G43.909 Migraine, unspecified, not intractable, without status migrainosus (principal); I10 Essential (primary) hypertension

== ENCOUNTER 2017-07-15 09:25 | Emergency (ER) | payer MEDICARE ==
[2015-02-15 12:55] VITALS: BMI 33.3
== END 2017-07-15 10:54 | disposition home or self-care (01) ==
LOC: D.ER 09:25
DX: S99.922A Unspecified injury of left foot, initial encounter (principal); X58.XXXA Exposure to other specified factors, initial encounter; Y93.89 Activity, other specified; Y92.019 Unspecified place in single-family (private) house as the place of occurrence of the external cause; I10 Essential (primary) hypertension

== ENCOUNTER 2017-07-20 14:33 | Emergency (ER) | payer MEDICARE ==
[2015-02-15 12:55] VITALS: BMI 33.3
== END 2017-07-20 17:22 | disposition home or self-care (01) ==
LOC: D.ER 14:33
DX: G43.909 Migraine, unspecified, not intractable, without status migrainosus (principal); I10 Essential (primary) hypertension

== ENCOUNTER 2017-07-28 12:11 | Emergency (ER) | payer MEDICARE ==
[2015-02-15 12:55] VITALS: BMI 33.3
== END 2017-07-28 13:31 | disposition home or self-care (01) ==
LOC: D.ER 12:11
DX: G43.909 Migraine, unspecified, not intractable, without status migrainosus (principal); F17.200 Nicotine dependence, unspecified, uncomplicated; I10 Essential (primary) hypertension

== ENCOUNTER 2017-08-08 20:16 | Emergency (ER) | payer MEDICARE ==
[2015-02-15 12:55] VITALS: BMI 33.3
== END 2017-08-08 23:59 | disposition home or self-care (01) ==
LOC: D.ER 20:16
DX: G43.909 Migraine, unspecified, not intractable, without status migrainosus (principal); J06.9 Acute upper respiratory infection, unspecified; I10 Essential (primary) hypertension

== ENCOUNTER 2017-08-13 19:44 | Emergency (ER) | payer MEDICARE ==
[2015-02-15 12:55] VITALS: BMI 33.3
== END 2017-08-13 22:25 | disposition home or self-care (01) ==
LOC: D.ER 19:44
DX: G43.909 Migraine, unspecified, not intractable, without status migrainosus (principal); I10 Essential (primary) hypertension

== ENCOUNTER 2017-08-16 19:39 | Emergency (ER) | payer MEDICARE ==
[2015-02-15 12:55] VITALS: BMI 33.3
== END 2017-08-16 21:07 | disposition home or self-care (01) ==
LOC: D.ER 19:39
DX: G43.909 Migraine, unspecified, not intractable, without status migrainosus (principal); I10 Essential (primary) hypertension

== ENCOUNTER 2017-08-19 16:46 | Emergency (ER) | payer MEDICARE ==
[2015-02-15 12:55] VITALS: BMI 33.3
== END 2017-08-19 18:13 | disposition home or self-care (01) ==
LOC: D.ER 16:46
DX: G43.909 Migraine, unspecified, not intractable, without status migrainosus (principal); W01.0XXA Fall on same level from slipping, tripping and stumbling without subsequent striking against object, initial encounter; Y93.89 Activity, other specified; Y92.019 Unspecified place in single-family (private) house as the place of occurrence of the external cause; I10 Essential (primary) hypertension

== ENCOUNTER 2017-08-28 15:29 | Emergency (ER) | payer MEDICARE ==
[2015-02-15 12:55] VITALS: BMI 33.3
== END 2017-08-28 17:43 | disposition home or self-care (01) ==
LOC: D.ER 15:29
DX: G43.909 Migraine, unspecified, not intractable, without status migrainosus (principal); I10 Essential (primary) hypertension

== ENCOUNTER 2017-08-31 18:38 | Emergency (ER) | payer MEDICARE ==
[2015-02-15 12:55] VITALS: BMI 33.3
== END 2017-08-31 21:04 | disposition home or self-care (01) ==
LOC: D.ER 18:38
DX: R51 Headache (principal)

== ENCOUNTER 2017-09-03 19:41 | Emergency (ER) | payer MEDICARE ==
[2015-02-15 12:55] VITALS: BMI 33.3
== END 2017-09-03 21:45 | disposition home or self-care (01) ==
LOC: D.ER 19:41
DX: S30.0XXA Contusion of lower back and pelvis, initial encounter (principal); W18.2XXA Fall in (into) shower or empty bathtub, initial encounter; Y93.E1 Activity, personal bathing and showering; Y92.012 Bathroom of single-family (private) house as the place of occurrence of the external cause; I10 Essential (primary) hypertension

== ENCOUNTER 2017-09-10 16:45 | Emergency (ER) | payer MEDICARE ==
[2015-02-15 12:55] VITALS: BMI 33.3
[2017-09-10 17:12] LABS: BASOPHILS 0.2 % (0-2); EOSINOPHILS 3.5 % (0-7); HEMATOCRIT 36.3 % (36.0-48.0); HEMOGLOBIN 12.2 g/dL (12-16); IMMATURE GRANULOCYTES 0.3 % (0-5); LYMPHOCYTES 11.8 % (15-50); MCH 31.4 pg (26.0-34.0); MCHC 33.6 g/dL (31.0-37.0); MCV 93.6 fL (80.0-100.0); MEAN PLATELET VOLUME 9.5 fL (7.4-10.4); MONOCYTES 7.3 % (2-11); NEUTROPHILS 76.9 % (40-80); PLATELET COUNT 363 10x3/uL (130-400); RBC 3.88 10x6/uL (4.00-5.40); WBC 10.5 10x3/uL (4.8-10.8)
[2017-09-10 17:22] LABS: ALBUMIN 3.9 g/dL (3.4-5.0); ANION GAP 7.6 mmol/L (8-16); BILIRUBIN - TOTAL 0.58 mg/dL (0.2-1.3); CALCIUM 9.8 mg/dL (8.5-10.1); CREATININE - SERUM 0.9 mg/dL (0.6-1.3); POTASSIUM - SERUM 3.6 mmol/L (3.5-5.1); PROTEIN - SERUM 7.4 g/dL (6.4-8.2)
== END 2017-09-10 18:59 | disposition home or self-care (01) ==
LOC: D.ER 16:45
PROVIDERS: Family Medicine
DX: K52.9 Noninfective gastroenteritis and colitis, unspecified (principal); I10 Essential (primary) hypertension

== ENCOUNTER 2017-09-14 18:30 | Emergency (ER) | payer MEDICARE ==
[2015-02-15 12:55] VITALS: BMI 33.3
== END 2017-09-14 20:02 | disposition home or self-care (01) ==
LOC: D.ER 18:30
DX: G43.909 Migraine, unspecified, not intractable, without status migrainosus (principal); I10 Essential (primary) hypertension

== ENCOUNTER 2017-09-17 12:15 | Emergency (ER) | payer MEDICARE ==
[2015-02-15 12:55] VITALS: BMI 33.3
== END 2017-09-17 12:57 | disposition home or self-care (01) ==
LOC: D.ER 12:15
DX: G43.909 Migraine, unspecified, not intractable, without status migrainosus (principal)

== ENCOUNTER 2017-09-20 18:06 | Emergency (ER) | payer MEDICARE ==
[2015-02-15 12:55] VITALS: BMI 33.3
[2017-09-20 18:33] LABS: BASOPHILS 0.3 % (0-2); EOSINOPHILS 1.9 % (0-7); HEMATOCRIT 35.8 % (36.0-48.0); HEMOGLOBIN 12.2 g/dL (12-16); IMMATURE GRANULOCYTES 0.1 % (0-5); LYMPHOCYTES 32.2 % (15-50); MCH 31.3 pg (26.0-34.0); MCHC 34.1 g/dL (31.0-37.0); MCV 91.8 fL (80.0-100.0); MEAN PLATELET VOLUME 9.5 fL (7.4-10.4); MONOCYTES 7.8 % (2-11); NEUTROPHILS 57.7 % (40-80); PLATELET COUNT 351 10x3/uL (130-400); RDW 13.7 % (11.5-14.5)
[2017-09-20 18:51] LABS: ALBUMIN 3.5 g/dL (3.4-5.0); ALKALINE PHOSPHATASE 77 U/L (46-116); ALT (SGPT) 15 U/L (10-68); CALC OSMOLALITY 281 mosm/kg (275-300); CARBON DIOXIDE 27.5 mmol/L (21.0-32.0); CHLORIDE - SERUM 106 mmol/L (98-107); GLUCOSE 95 mg/dL (74-106); PROTEIN - SERUM 7.2 g/dL (6.4-8.2); SODIUM 140 mmol/L (136-145); UREA NITROGEN 21 mg/dL (7-18); eGFR NON AFRICAN AMERICAN 61 mL/min (90-120)
[2017-09-20 19:01] LABS: CHOL - HDL RATIO 3.2 ratio (2.3-4.1); CHOLESTEROL, TOTAL 180 mg/dL (0-200); CKMB 0.2 U/L (0.0-3.6); CREATINE KINASE 43 UL (21-215); HDL CHOLESTEROL 56 mg/dL (32-96); LDL CHOLESTEROL 104 mg/dL (0-100); LDL-HDL RATIO 1.9 ratio (1.5-3.5); TRIGLYCERIDE 100 mg/dL (30-200); TROPONIN-I < 0.017 ng/mL (0.000-0.060)
== END 2017-09-20 21:29 | disposition home or self-care (01) ==
LOC: D.ER 18:06
PROVIDERS: Family Medicine
DX: R07.81 Pleurodynia (principal); Z86.711 Personal history of pulmonary embolism

== ENCOUNTER 2017-09-22 18:50 | Emergency (ER) | payer MEDICARE ==
[2015-02-15 12:55] VITALS: BMI 33.3
== END 2017-09-22 20:26 | disposition home or self-care (01) ==
LOC: D.ER 18:50
DX: R07.81 Pleurodynia (principal); Z86.711 Personal history of pulmonary embolism; I45.10 Unspecified right bundle-branch block; I10 Essential (primary) hypertension

== ENCOUNTER 2017-09-25 17:04 | Emergency (ER) | payer MEDICARE ==
[2015-02-15 12:55] VITALS: BMI 33.3
== END 2017-09-25 18:51 | disposition home or self-care (01) ==
LOC: D.ER 17:04
DX: S83.92XA Sprain of unspecified site of left knee, initial encounter (principal); X50.1XXA Overexertion from prolonged static or awkward postures, initial encounter; Y93.89 Activity, other specified; Y92.019 Unspecified place in single-family (private) house as the place of occurrence of the external cause

== ENCOUNTER 2017-10-04 14:09 | Emergency (ER) | payer MEDICARE ==
[~2017-10-04] VITALS: Ht 152.4 cm; Wt 81.8 kg
[2017-10-04 14:34] VITALS: Ht 152.4 cm; Wt 81.8 kg
[2017-10-04] MEDS ORDERED: TOPROL XL100 MG PO (14:37)
[2017-10-04] MEDS ORDERED: AMITRIPTYLINE100 MG PO (14:38)
[2017-10-04] MEDS ORDERED: VISTARIL25 MG (14:38)
[2017-10-04] MEDS ORDERED: XARELTO20 MG PO (14:39)
[2017-10-04 16:55] VITALS: BP 166/87
== END 2017-10-04 16:49 | disposition home or self-care (01) ==
LOC: D.ER 14:09
DX: R51 Headache (principal); Z86.73 Personal history of transient ischemic attack (TIA), and cerebral infarction without residual deficits; Z86.59 Personal history of other mental and behavioral disorders; I10 Essential (primary) hypertension; J44.9 Chronic obstructive pulmonary disease, unspecified

== ENCOUNTER 2017-10-06 19:34 | Emergency (ER) | payer MEDICARE ==
[~2017-10-06] VITALS: Ht 152.4 cm; Wt 81.6 kg
[~2017-10-06 19:34] MED LIST changes: +AMITRIPTYLINE100 MG PO; +TOPROL XL100 MG PO; +VISTARIL25 MG; +XARELTO20 MG PO
[2017-10-06 19:39] VITALS: Ht 152.4 cm; Wt 81.6 kg
[2017-10-06 20:18] LABS: BASOPHILS 0.1 % (0-2); EOSINOPHILS 1.7 % (0-7); HEMATOCRIT 37.1 % (36.0-48.0); HEMOGLOBIN 12.5 g/dL (12-16); IMMATURE GRANULOCYTES 0.1 % (0-5); LYMPHOCYTES 28.2 % (15-50); MCH 31.5 pg (26.0-34.0); MCHC 33.7 g/dL (31.0-37.0); MCV 93.5 fL (80.0-100.0); MEAN PLATELET VOLUME 9.7 fL (7.4-10.4); MONOCYTES 8.2 % (2-11); NEUTROPHILS 61.7 % (40-80); PLATELET COUNT 328 10x3/uL (130-400); RBC 3.97 10x6/uL (4.00-5.40); RDW 13.7 % (11.5-14.5); WBC 6.9 10x3/uL (4.8-10.8)
[2017-10-06 20:39] LABS: ALBUMIN 3.9 g/dL (3.4-5.0); ANION GAP 11.4 mmol/L (8-16); BILIRUBIN - TOTAL 0.31 mg/dL (0.2-1.3); CALCIUM 9.7 mg/dL (8.5-10.1); CARBON DIOXIDE 29.7 mmol/L (21.0-32.0); CREATININE - SERUM 1.1 mg/dL (0.6-1.3); POTASSIUM - SERUM 4.1 mmol/L (3.5-5.1); PROTEIN - SERUM 7.7 g/dL (6.4-8.2)
[2017-10-06 20:42] LABS: APPEARANCE SLT CLOUDY (CLEAR); BILIRUBIN NEGATIVE (NEGATIVE); COLOR YELLOW (YELLOW); GLUCOSE NEGATIVE (NEGATIVE); KETONE NEGATIVE (NEGATIVE); NITRITE NEGATIVE (NEGATIVE); PROTEIN NEGATIVE (NEGATIVE); UROBILINOGEN NORMAL (NORMAL)
[2017-10-06] MEDS ORDERED: OMEPRAZOLE20 M1 PO (21:29)
[2017-10-06 21:58] VITALS: BP 138/75
== END 2017-10-06 21:59 | disposition home or self-care (01) ==
LOC: D.ER 19:34
PROVIDERS: Emergency Medicine
DX: R10.13 Epigastric pain (principal); K44.9 Diaphragmatic hernia without obstruction or gangrene; R11.0 Nausea; Z86.73 Personal history of transient ischemic attack (TIA), and cerebral infarction without residual deficits; I10 Essential (primary) hypertension; J44.9 Chronic obstructive pulmonary disease, unspecified

== ENCOUNTER 2017-10-16 15:09 | Emergency (ER) | payer MEDICARE ==
[~2017-10-16] VITALS: Ht 152.4 cm; Wt 81.8 kg
[~2017-10-16 15:09] MED LIST changes: +OMEPRAZOLE20 M1 PO
[2017-10-16 15:18] VITALS: Ht 152.4 cm; Wt 81.8 kg
[2017-10-16 17:28] VITALS: BP 149/92
== END 2017-10-16 17:04 | disposition home or self-care (01) ==
LOC: D.ER 15:09
DX: G43.909 Migraine, unspecified, not intractable, without status migrainosus (principal); R51 Headache; Z86.73 Personal history of transient ischemic attack (TIA), and cerebral infarction without residual deficits; I10 Essential (primary) hypertension; J44.9 Chronic obstructive pulmonary disease, unspecified

== ENCOUNTER 2017-10-19 17:28 | Emergency (ER) | payer MEDICARE ==
[~2017-10-19] VITALS: Ht 152.4 cm; Wt 81.8 kg
[2017-10-19 17:40] VITALS: Ht 152.4 cm; Wt 81.8 kg
[2017-10-19 18:55] LABS: BASOPHILS 0.2 % (0-2); EOSINOPHILS 1.5 % (0-7); HEMATOCRIT 36.2 % (36.0-48.0); HEMOGLOBIN 12.5 g/dL (12-16); IMMATURE GRANULOCYTES 0.4 % (0-5); LYMPHOCYTES 24.2 % (15-50); MCH 31.2 pg (26.0-34.0); MCHC 34.5 g/dL (31.0-37.0); MCV 90.3 fL (80.0-100.0); MEAN PLATELET VOLUME 9.4 fL (7.4-10.4); MONOCYTES 7.3 % (2-11); NEUTROPHILS 66.4 % (40-80); PLATELET COUNT 360 10x3/uL (130-400); RBC 4.01 10x6/uL (4.00-5.40); RDW 13.6 % (11.5-14.5); WBC 8.5 10x3/uL (4.8-10.8)
[2017-10-19] MEDS ORDERED: ZOFRAN ODT4 MG/UDTAB PO (18:55)
[2017-10-19 19:19] VITALS: BP 167/85
[2017-10-19 19:47] LABS: ALBUMIN 4.1 g/dL (3.4-5.0); ANION GAP 13.7 mmol/L (8-16); BILIRUBIN - TOTAL 0.42 mg/dL (0.2-1.3); CALCIUM 9.5 mg/dL (8.5-10.1); CARBON DIOXIDE 26.8 mmol/L (21.0-32.0); CREATININE - SERUM 0.9 mg/dL (0.6-1.3); POTASSIUM - SERUM 3.5 mmol/L (3.5-5.1); PROTEIN - SERUM 7.4 g/dL (6.4-8.2)
== END 2017-10-19 19:19 | disposition home or self-care (01) ==
LOC: D.ER 17:28
PROVIDERS: Family Medicine
DX: R51 Headache (principal); R11.2 Nausea with vomiting, unspecified

== ENCOUNTER 2017-10-22 20:01 | Emergency (ER) | payer MEDICARE ==
[~2017-10-22] VITALS: Ht 152.4 cm; Wt 81.8 kg
[~2017-10-22 20:01] MED LIST changes: +ZOFRAN ODT4 MG/UDTAB PO
[2017-10-22 20:09] VITALS: Ht 152.4 cm; Wt 81.8 kg
[2017-10-22 22:58] VITALS: BP 178/94
== END 2017-10-22 22:59 | disposition home or self-care (01) ==
LOC: D.ER 20:01
DX: S30.0XXA Contusion of lower back and pelvis, initial encounter (principal); X58.XXXA Exposure to other specified factors, initial encounter; Y93.9 Activity, unspecified; Y92.9 Unspecified place or not applicable; M54.10 Radiculopathy, site unspecified

== ENCOUNTER 2017-10-25 20:14 | Emergency (ER) | payer MEDICARE ==
[~2017-10-25] VITALS: Ht 152.4 cm; Wt 81.8 kg
[2017-10-25 20:17] VITALS: Ht 152.4 cm; Wt 81.8 kg
[2017-10-25 22:22] VITALS: BP 136/89
== END 2017-10-25 22:23 | disposition home or self-care (01) ==
LOC: D.ER 20:14
DX: G43.909 Migraine, unspecified, not intractable, without status migrainosus (principal)

== ENCOUNTER 2017-10-30 19:51 | Emergency (ER) | payer MEDICARE ==
[~2017-10-30] VITALS: Ht 152.4 cm; Wt 81.8 kg
[2017-10-30 19:55] VITALS: Ht 152.4 cm; Wt 81.8 kg
[2017-10-30] MEDS ORDERED: ZOLOFT50 MG PO (20:01)
[2017-10-30 20:27] LABS: APPEARANCE CLEAR (CLEAR); BILIRUBIN NEGATIVE (NEGATIVE); COLOR YELLOW (YELLOW); GLUCOSE NEGATIVE (NEGATIVE); KETONE SMALL mg/dL (NEGATIVE); NITRITE NEGATIVE (NEGATIVE); PROTEIN NEGATIVE (NEGATIVE); SPECIFIC GRAVITY 1.005 (1.005-1.020); UROBILINOGEN NORMAL (NORMAL)
[2017-10-30 20:27] LABS: BASOPHILS 0.2 % (0-2); EOSINOPHILS 2.3 % (0-7); HEMATOCRIT 35.8 % (36.0-48.0); IMMATURE GRANULOCYTES 0.4 % (0-5); LYMPHOCYTES 24.8 % (15-50); MCH 31.4 pg (26.0-34.0); MCHC 33.5 g/dL (31.0-37.0); MCV 93.7 fL (80.0-100.0); MEAN PLATELET VOLUME 9.6 fL (7.4-10.4); MONOCYTES 5.2 % (2-11); NEUTROPHILS 67.1 % (40-80); PLATELET COUNT 361 10x3/uL (130-400); RBC 3.82 10x6/uL (4.00-5.40); RDW 14.1 % (11.5-14.5); WBC 8.5 10x3/uL (4.8-10.8)
[2017-10-30 20:40] LABS: ALBUMIN 3.7 g/dL (3.4-5.0); ALKALINE PHOSPHATASE 93 U/L (46-116); ALT (SGPT) 15 U/L (10-68); BILIRUBIN - TOTAL 0.19 mg/dL (0.2-1.3); CALC OSMOLALITY 282 mosm/kg (275-300); CALCIUM 9.4 mg/dL (8.5-10.1); CARBON DIOXIDE 32.8 mmol/L (21.0-32.0); CHLORIDE - SERUM 103 mmol/L (98-107); CREATININE - SERUM 0.8 mg/dL (0.6-1.3); GLUCOSE 94 mg/dL (74-106); LIPASE 123 U/L (73-393); POTASSIUM - SERUM 4.1 mmol/L (3.5-5.1); PROTEIN - SERUM 7.1 g/dL (6.4-8.2); SODIUM 141 mmol/L (136-145); UREA NITROGEN 19 mg/dL (7-18); eGFR NON AFRICAN AMERICAN 79 mL/min (90-120)
[2017-10-30] MEDS ORDERED: ZOFRAN4 MG PO (23:20)
[2017-10-30 23:30] VITALS: BP 160/89
== END 2017-10-30 23:31 | disposition home or self-care (01) ==
LOC: D.ER 19:51
PROVIDERS: Family Medicine
DX: R10.9 Unspecified abdominal pain (principal); R19.7 Diarrhea, unspecified; R11.0 Nausea

== ENCOUNTER 2017-11-02 18:59 | Emergency (ER) | payer MEDICARE ==
[~2017-11-02] VITALS: Ht 152.4 cm; Wt 81.8 kg
[~2017-11-02 18:59] MED LIST changes: +ZOFRAN4 MG PO; +ZOLOFT50 MG PO
[2017-11-02 19:39] VITALS: BP 153/94; Ht 152.4 cm; Wt 81.8 kg
== END 2017-11-02 21:23 | disposition home or self-care (01) ==
LOC: D.ER 18:59
DX: G43.909 Migraine, unspecified, not intractable, without status migrainosus (principal); I10 Essential (primary) hypertension; J44.9 Chronic obstructive pulmonary disease, unspecified

== ENCOUNTER 2017-11-08 20:59 | Emergency (ER) | payer MEDICARE ==
[~2017-11-08] VITALS: Ht 152.4 cm; Wt 81.8 kg
[2017-11-08 21:09] VITALS: Ht 152.4 cm; Wt 81.8 kg
== END 2017-11-08 22:02 | disposition left against medical advice (07) ==
LOC: D.ER 20:59
DX: R51 Headache (principal)

== ENCOUNTER 2017-11-11 14:10 | Emergency (ER) | payer MEDICARE ==
[~2017-11-11] VITALS: Ht 152.4 cm; Wt 81.8 kg
[2017-11-11 14:28] VITALS: Ht 152.4 cm; Wt 81.8 kg
[2017-11-11 21:41] VITALS: BP 148/97
== END 2017-11-11 17:32 | disposition home or self-care (01) ==
LOC: D.ER 14:10
DX: S06.0X0A Concussion without loss of consciousness, initial encounter (principal); W19.XXXA Unspecified fall, initial encounter; Y93.89 Activity, other specified; Y92.019 Unspecified place in single-family (private) house as the place of occurrence of the external cause; S00.93XA Contusion of unspecified part of head, initial encounter; R51 Headache; I10 Essential (primary) hypertension; J44.9 Chronic obstructive pulmonary disease, unspecified; Z79.01 Long term (current) use of anticoagulants

== ENCOUNTER 2017-11-15 19:37 | Emergency (ER) | payer MEDICARE ==
[~2017-11-15] VITALS: Ht 152.4 cm; Wt 81.8 kg
[2017-11-15 19:56] VITALS: Ht 152.4 cm; Wt 81.8 kg
[2017-11-15 22:29] VITALS: BP 140/78
== END 2017-11-15 22:31 | disposition home or self-care (01) ==
LOC: D.ER 19:37
DX: G43.909 Migraine, unspecified, not intractable, without status migrainosus (principal); R11.0 Nausea; I10 Essential (primary) hypertension; J44.9 Chronic obstructive pulmonary disease, unspecified

== ENCOUNTER 2017-11-17 19:51 | Emergency (ER) | payer MEDICARE ==
[~2017-11-17] VITALS: Ht 152.4 cm; Wt 81.8 kg
[2017-11-17 20:06] VITALS: Ht 152.4 cm; Wt 81.8 kg
[2017-11-17] MEDS ORDERED: STADOL NASAL S2.5 ML NASAL (22:47)
[2017-11-17 23:17] VITALS: BP 124/72
== END 2017-11-17 23:18 | disposition home or self-care (01) ==
LOC: D.ER 19:51
DX: R51 Headache (principal); Z86.73 Personal history of transient ischemic attack (TIA), and cerebral infarction without residual deficits; I10 Essential (primary) hypertension; J44.9 Chronic obstructive pulmonary disease, unspecified

== ENCOUNTER 2017-11-20 18:41 | Emergency (ER) | payer MEDICARE ==
[~2017-11-20] VITALS: Ht 152.4 cm; Wt 81.8 kg
[~2017-11-20 18:41] MED LIST changes: +STADOL NASAL S2.5 ML NASAL
[2017-11-20 18:56] VITALS: Ht 152.4 cm; Wt 81.8 kg
[2017-11-20] MEDS ORDERED: MEDROL DOSE PACK4 MG PO (20:39)
[2017-11-20 21:04] VITALS: BP 149/82
== END 2017-11-20 21:04 | disposition home or self-care (01) ==
LOC: D.ER 18:41
DX: G43.909 Migraine, unspecified, not intractable, without status migrainosus (principal); S69.91XA Unspecified injury of right wrist, hand and finger(s), initial encounter; W19.XXXA Unspecified fall, initial encounter; Y93.89 Activity, other specified; Y92.019 Unspecified place in single-family (private) house as the place of occurrence of the external cause; I10 Essential (primary) hypertension; J44.9 Chronic obstructive pulmonary disease, unspecified

== ENCOUNTER 2017-11-24 10:09 | Emergency (ER) | payer MEDICARE ==
[~2017-11-24] VITALS: Ht 152.4 cm; Wt 81.8 kg
[~2017-11-24 10:09] MED LIST changes: +MEDROL DOSE PACK4 MG PO
[2017-11-24 10:19] VITALS: Ht 152.4 cm; Wt 81.8 kg
[2017-11-24 10:57] LABS: BASOPHILS 0.2 % (0-2); EOSINOPHILS 1.7 % (0-7); HEMATOCRIT 36.3 % (36.0-48.0); HEMOGLOBIN 12.6 g/dL (12-16); IMMATURE GRANULOCYTES 0.3 % (0-5); MCH 31.5 pg (26.0-34.0); MCHC 34.7 g/dL (31.0-37.0); MCV 90.8 fL (80.0-100.0); MEAN PLATELET VOLUME 9.4 fL (7.4-10.4); MONOCYTES 7.4 % (2-11); NEUTROPHILS 67.4 % (40-80); PLATELET COUNT 334 10x3/uL (130-400); RDW 13.5 % (11.5-14.5); WBC 6.5 10x3/uL (4.8-10.8)
[2017-11-24 11:20] LABS: ALBUMIN 3.6 g/dL (3.4-5.0); ALKALINE PHOSPHATASE 71 U/L (46-116); ALT (SGPT) 18 U/L (10-68); BILIRUBIN - TOTAL 0.46 mg/dL (0.2-1.3); CALC OSMOLALITY 280 mosm/kg (275-300); CALCIUM 8.6 mg/dL (8.5-10.1); CARBON DIOXIDE 30.3 mmol/L (21.0-32.0); CHLORIDE - SERUM 103 mmol/L (98-107); CREATININE - SERUM 0.9 mg/dL (0.6-1.3); GLUCOSE 105 mg/dL (74-106); POTASSIUM - SERUM 3.1 mmol/L (3.5-5.1); PROTEIN - SERUM 7.1 g/dL (6.4-8.2); SODIUM 141 mmol/L (136-145); UREA NITROGEN 13 mg/dL (7-18); eGFR NON AFRICAN AMERICAN 69 mL/min (90-120)
[2017-11-24 11:31] LABS: CKMB 0.3 U/L (0.0-3.6); CREATINE KINASE 35 UL (21-215)
[2017-11-24 11:34] LABS: TROPONIN-I < 0.017 ng/mL (0.000-0.060)
[2017-11-24] MEDS ORDERED: CYCLOBENZAPRINE10 MG PO (15:23)
[2017-11-24] MEDS ORDERED: ACETAMINOPHEN500 M1 PO (15:23)
[2017-11-24 15:54] VITALS: BP 157/88
== END 2017-11-24 16:09 | disposition home or self-care (01) ==
LOC: D.ER 10:09
PROVIDERS: Family Medicine
DX: R07.9 Chest pain, unspecified (principal); I10 Essential (primary) hypertension; J44.9 Chronic obstructive pulmonary disease, unspecified; Z86.73 Personal history of transient ischemic attack (TIA), and cerebral infarction without residual deficits; I45.10 Unspecified right bundle-branch block

== ENCOUNTER 2017-12-19 11:16 | Emergency (ER) | payer MEDICARE ==
[~2017-12-19] VITALS: Ht 152.4 cm; Wt 81.8 kg
[~2017-12-19 11:16] MED LIST changes: +ACETAMINOPHEN500 M1 PO; +CYCLOBENZAPRINE10 MG PO
[2017-12-19 11:37] VITALS: Ht 152.4 cm; Wt 81.8 kg
[2017-12-19 15:08] VITALS: BP 150/92
== END 2017-12-19 15:49 | disposition home or self-care (01) ==
LOC: D.ER 11:16
DX: G43.909 Migraine, unspecified, not intractable, without status migrainosus (principal); R11.0 Nausea; I10 Essential (primary) hypertension; J44.9 Chronic obstructive pulmonary disease, unspecified

== ENCOUNTER 2018-01-04 17:27 | Emergency (ER) | payer MEDICARE ==
[~2018-01-04] VITALS: Ht 152.4 cm; Wt 81.8 kg
[2018-01-04 17:38] VITALS: BP 162/100; Ht 152.4 cm; Wt 81.8 kg
[2018-01-05] MEDS ORDERED: AMITRIPTYLINE100 MG PO (11:48)
== END 2018-01-04 19:34 | disposition left against medical advice (07) ==
LOC: D.ER 17:27
DX: R51 Headache (principal)

== ENCOUNTER 2018-01-05 10:52 | Emergency (ER) | payer MEDICARE ==
[~2018-01-05] VITALS: Ht 152.4 cm; Wt 81.6 kg
[2018-01-05 11:02] VITALS: Ht 152.4 cm; Wt 81.6 kg
[2018-01-05] MEDS ORDERED: AMITRIPTYLINE100 MG PO (11:48)
[2018-01-05 12:18] VITALS: BP 138/88
== END 2018-01-05 12:18 | disposition home or self-care (01) ==
LOC: D.ER 10:52
DX: G43.909 Migraine, unspecified, not intractable, without status migrainosus (principal); R11.2 Nausea with vomiting, unspecified; Z86.73 Personal history of transient ischemic attack (TIA), and cerebral infarction without residual deficits; I10 Essential (primary) hypertension; J44.9 Chronic obstructive pulmonary disease, unspecified

== ENCOUNTER 2018-01-07 18:48 | Emergency (ER) | payer MEDICARE ==
[~2018-01-07] VITALS: Ht 152.4 cm; Wt 81.8 kg
[2018-01-07 18:50] VITALS: Ht 152.4 cm; Wt 81.8 kg
[2018-01-07 23:05] VITALS: BP 138/83
== END 2018-01-07 23:05 | disposition home or self-care (01) ==
LOC: D.ER 18:48
DX: G43.909 Migraine, unspecified, not intractable, without status migrainosus (principal); Z86.73 Personal history of transient ischemic attack (TIA), and cerebral infarction without residual deficits; I10 Essential (primary) hypertension; J44.9 Chronic obstructive pulmonary disease, unspecified

== ENCOUNTER 2018-01-17 12:48 | Emergency (ER) | payer MEDICARE ==
[~2018-01-17] VITALS: Ht 152.4 cm; Wt 81.8 kg
[2018-01-17 13:18] VITALS: Ht 152.4 cm; Wt 81.8 kg
[2018-01-17 15:24] VITALS: BP 161/90
== END 2018-01-17 15:24 | disposition home or self-care (01) ==
LOC: D.ER 12:48
DX: R51 Headache (principal); Z76.5 Malingerer [conscious simulation]; R11.0 Nausea; I10 Essential (primary) hypertension; J44.9 Chronic obstructive pulmonary disease, unspecified; K21.9 Gastro-esophageal reflux disease without esophagitis; F17.200 Nicotine dependence, unspecified, uncomplicated

== ENCOUNTER 2018-01-19 18:35 | Emergency (ER) | payer MEDICARE ==
[~2018-01-19] VITALS: Ht 152.4 cm; Wt 87.3 kg
[2018-01-19 18:57] VITALS: Ht 152.4 cm; Wt 87.3 kg
[2018-01-19] MEDS ORDERED: XARELTO20 MG PO (19:00)
[2018-01-19] MEDS ORDERED: SKELAXIN800 MG PO (20:23)
[2018-01-19 20:51] VITALS: BP 145/81
== END 2018-01-19 20:51 | disposition home or self-care (01) ==
LOC: D.ER 18:35
DX: S39.012A Strain of muscle, fascia and tendon of lower back, initial encounter (principal); X50.0XXA Overexertion from strenuous movement or load, initial encounter; Y93.89 Activity, other specified; Y92.019 Unspecified place in single-family (private) house as the place of occurrence of the external cause; I10 Essential (primary) hypertension; F17.200 Nicotine dependence, unspecified, uncomplicated; F31.9 Bipolar disorder, unspecified

== ENCOUNTER 2018-01-21 13:03 | Emergency (ER) | payer MEDICARE ==
[~2018-01-21] VITALS: Ht 152.4 cm; Wt 86.4 kg
[~2018-01-21 13:03] MED LIST changes: +SKELAXIN800 MG PO
[2018-01-21 13:28] VITALS: Ht 152.4 cm; Wt 86.4 kg
[2018-01-21 16:23] VITALS: BP 176/94
== END 2018-01-21 16:20 | disposition home or self-care (01) ==
LOC: D.ER 13:03
DX: G43.009 Migraine without aura, not intractable, without status migrainosus (principal); R11.0 Nausea; I10 Essential (primary) hypertension; F17.200 Nicotine dependence, unspecified, uncomplicated

== ENCOUNTER 2018-01-24 17:12 | Emergency (ER) | payer MEDICARE ==
[~2018-01-24] VITALS: Ht 152.4 cm; Wt 86.4 kg
[2018-01-24 17:18] VITALS: Ht 152.4 cm; Wt 86.4 kg
[2018-01-24 19:33] VITALS: BP 159/87
== END 2018-01-24 19:34 | disposition home or self-care (01) ==
LOC: D.ER 17:12
DX: S93.601A Unspecified sprain of right foot, initial encounter (principal); X58.XXXA Exposure to other specified factors, initial encounter; Y93.89 Activity, other specified; Y92.89 Other specified places as the place of occurrence of the external cause; I10 Essential (primary) hypertension; J44.9 Chronic obstructive pulmonary disease, unspecified

== ENCOUNTER 2018-01-26 20:43 | Emergency (ER) | payer MEDICARE ==
[~2018-01-26] VITALS: Ht 152.4 cm; Wt 81.8 kg
[2018-01-26 20:47] VITALS: Ht 152.4 cm; Wt 81.8 kg
[2018-01-26 21:41] VITALS: BP 134/87
== END 2018-01-26 21:48 | disposition home or self-care (01) ==
LOC: D.ER 20:43
DX: G43.909 Migraine, unspecified, not intractable, without status migrainosus (principal); I10 Essential (primary) hypertension; J44.9 Chronic obstructive pulmonary disease, unspecified; F17.200 Nicotine dependence, unspecified, uncomplicated

== ENCOUNTER 2018-01-28 17:22 | Observation (INO) | payer MEDICARE ==
[~2018-01-28] VITALS: Ht 152.4 cm; Wt 86.4 kg
[2018-01-28] VITALS (7 sets, daily range): BP systolic 126–154; BP diastolic 72–97
--- NOTE | ~2018-01-28 | OP ---
PATIENT NAME: JJ FIELD MEDICAL RECORD: [id number] :64 LOCATION:D.M2 D.2117 ADMISSION DATE:01/28/18 SURGEON: WILBER JENSEN MD DATE OF OPERATION: 01/29/2018 PROCEDURES: Left heart cath, LV gram, coronary angiogram. LOCAL COMPANY TANKER DRIVER: Wilber Jensen MD PROCEDURE IN DETAIL: The patient was brought to cardiac catheterization lab in stable condition. Both groins were sterilely prepped and draped. The patient had a 6-Sinhala sheath placed in the right common femoral artery, and using modified Seldinger technique, the patient then had serial catheters utilized to selectively intubate the right coronary and left coronary arteries and the LV cavity respectively. FINDINGS: 1. The left main is normal. 2. The LAD is normal. 3. The circumflex is normal. 4. The RCA is normal. HEMODYNAMICS: Ejection fraction 65%. End-diastolic pressure is normal. IMPRESSION: Normal coronary arteries. Normal LV systolic function. RECOMMENDATIONS: Look for other etiologies of the patient's chest pain syndrome. TRANSINT:[id number] Voice Confirmation ID: [id number] DOCUMENT ID: [id number] WILBER JENSEN MD CC: [id number] DICTATION DATE: 01/29/18 1056 CLINICAL BUSINESS MANAGER: 01/29/18 1809 DIS IN 01/29/18 [facility] [address] [place] [address]
--- NOTE | ~2018-01-28 | HEMODYNAMI ---
PATIENT:JJ FIELD MEDICAL RECORD: [id number] : 64 LOCATION:[facility] D.2117 ADMISSION DATE: 01/28/18 Generatedon:01/29/201810:54 Patient name: JJ FIELD Patient #: [id number] SSN: : 1960 Date of study: 01/29/2018 Page: Of Hemodynamic Procedure Report Patient Data Patient Demographics Procedure consent was obtained First Name: JJ Gender: Female Last Name: EMIR : 1960 Middle Initial: K Age: 57 year(s) Patient #: [id number] Race: Unknown Additional ID: [id number] Contact details [address]: [address] [place] [address] [address] State: [place] City: [place] Zip code: [address] Past Medical History Allergies Allergen Reaction Date Comments Reported Other allergy 01/29/2018 see chrt Admission Admission Data Admission Date: 01/28/2018 Admission Time: 23:07 Room #: D.2117 Height (in.): 59.84 BSA: 1.82 (m2) Height (cm.): 152 BMI: 37.35 (kg/m2) Weight (lbs.): 190.26 Weight (kg.): 86.3 Procedure Procedure Types Cath Procedure Diagnostic Procedure C [facility] w/Coronaries Sedation Charges Moderate Sedation up to 15 minutes Procedure Description Procedure Date Procedure Date: 01/29/2018 Procedure Start Time: 10:37 Procedure End Time: 10:54 Procedure Staff Name Function Wilber Jensen MD Performing Physician Sheri Ramirez RT Monitor Sachin Cali RN Nurse Bibi Adam RT Scrub Procedure Data Cath Procedure Fluoroscopy Diagnostic fluoroscopy Total fluoroscopy Time: 0.9 time: 0.9 min min Diagnostic fluoroscopy Total fluoroscopy dose: 267 dose: 267 mGy mGy Contrast Material Contrast Material Type Amount (ml) Isovue 300 35 Entry Location Entry Primary Successful Side Size Upsize Upsize Entry Closure Succes sful Closure Location (Fr) 1 (Fr) 2 (Fr) Remarks Device Remarks Femoral Right 5 Fr Exoseal artery Estimated blood loss: 10 ml Diagnostic catheters Device Type Used For End Catheter Placement MULTIPACK JL 4.0 5Fr Procedure catheter MULTIPACK 3DRC 5Fr Procedure catheter MULTIPACK Pigtail 5 Fr Procedure catheter Procedure Complications No complications Procedure Medications Medication Administration Route Dosage 0.9% NaCl I.V. 100 ml/hr Oxygen etCO2 Nasal cannula 2 l/min Heparin Flush Bag added to field 2 bags (1000units/500ml NS) Lidocaine 2% added to field 20 Versed I.V. 2 mg Fentanyl I.V. 50 mcg Fentanyl I.V. 50 mcg Hemodynamics Rest BSA: 1.82 (m2) O2 Consumption: Estimated: 184.65 (ml/min) O2 Consumption indexed : Estimated:101.46 (ml/min/m) Heart Rate: 84 (bpm) Pressure Samples Time Site Value (mmHg) Purpose Heart Use Rate(bpm) 10:49 LV 175/-17,13 EDP 88 Gradients Valve Time Site Site Mean SEP/DFP Peak To Heart Use 1 2 (mmHg) (sec/min) Peak Rate (mmHg) (bpm) Aortic 10:50 LV AO 88 Snapshots Pre Cath Intra NCS Post Cath Vital Signs Time Heart Resp SPO2 etCO2 NIBP (mmHg) Rhythm Pain Sedation Rate (ipm) (%) (mmHg) Status Level (bpm) 10:20:01 78 25 100 0 162/101(135) NSR 0 (11) 10(A) , No pain 10:24:53 82 23 100 37 173/108(147) NSR 0 (11) 10(A) , No pain 10:29:48 79 12 100 36.3 152/102(138) NSR 0 (11) 10(A) , No pain 10:34:39 78 21 100 37.7 159/93(130) NSR 0 (11) 10(A) , No pain 10:39:34 80 15 99 37.7 149/87(127) NSR 0 (11) 10(A) , No pain 10:44:23 82 18 99 37 159/98(135) NSR 0 (11) 10(A) , No pain 10:49:16 88 29 99 35.5 151/97(120) NSR 0 (11) 10(A) , No pain 10:54:07 87 15 100 35.5 162/101(138) NSR 0 (11) 10(A) , No pain Medications Time Medication Route Dose Verified Delivered Reason Notes Eff ectiveness by by 10:32:08 0.9% NaCl I.V. 100 Sachin Sachin Per ml/hr Viraj Cali physician RN RN 10:32:17 Oxygen etCO2 2 Sachin Sachin Per Nasal l/min Viraj Cali physician cannula RN RN 10:32:28 Heparin Flush added 2 Sachin Sachin used for Bag to bags Lorigan Viraj procedure (1000units/500ml field RN RN NS) 10:32:39 Lidocaine 2% added 20ml Sachin Sachin for local to vial Lorigan Lorigan anesthetic field RN RN 10:38:03 Versed I.V. 2 mg Sachin Sachin for Lorigan Lorigan sedation RN RN 10:38:15 Fentanyl I.V. 50 Sachin Sachin for mcg Lorigan Lorigan sedation RN RN 10:45:57 Fentanyl I.V. 50 Sachin Sachin for mcg Lorigan Lorigan sedation RN upstairs maid Log Time Note 10:03:23 Patient Height : 59.84 inches 10:03:30 Patient Weight : 190.26 lbs 10:04:11 Diagnostic Cath status Elective 10:04:14 Sheri Ramirez RT(R) sent for patient. Start room use. 10:04:16 Time tracking: Call back (After hours or weekends) 10:04:23 Plan of Care:Hemodynamics will remain stable., Cardiac rhythm will remain stable., Comfort level will be maintained., Respiratory function will remain adequate., Patient/ family verbilizes understanding of procedure., Procedure tolerated without complication., Recovers from procedure without complications.. 10:13:43 Patient received from PCU to CCL 1 Alert and oriented. Tansferred to table in Supine position. 10:13:43 Warm blankets applied, and radha hugger turned on for patient comfort. 10:13:44 Correct patient and procedure confirmed by team. 10:13:45 Signed procedure consent form obtained from patient. 10:13:46 ECG and BP/O2 sat monitors applied to patient. 10:13:47 Full Disclosure recording started 10:18:55 Vital chart was started 10:27:08 Baseline sample Acquired. 10:27:13 Rhythm: sinus rhythm 10:27:24 H&P Date Dictated: 01/28/2018 Within 30 days and on chart.. 10:27:26 Pre-procedure instructions explained to patient. 10:27:29 Family unavailable. 10:27:31 Patient NPO since Midnight. 10:27:41 Patient allergic to Other allergysee chrt 10:27:44 Is the patient allergic to Iodine/contrast media? No. 10:27:46 Is patient on blood thinner?Yes 10:28:07 xerelto 01-27 10:28:09 Patient diabetic? No. 10:28:14 Snore? Yes 10:28:15 Sleep apnea? No 10:28:20 Airway obstruction? Yes COPD 10:28:27 Patient pain scale 0/10 ?. 10:28:35 IV patent on arrival in right forearm with 0.9% NaCl at [facility]. 10:29:06 Lab results completed and on chart. 10:29:10 Right Radial & Right Groin area was prepped with chlora-prep and draped in sterile fashion 10:29:11 Alarms reviewed by R. N. 10:29:12 Sharps counted by scrub and verified by R.N. 10:29:14 Physician paged 10:32:08 0.9% NaCl 100 ml/hr I.V. was administered by Sachin Cali RN; Per physician; 10:32:17 Oxygen 2 l/min etCO2 Nasal cannula was administered by Sachin Cali RN; Per physician; 10:32:28 Heparin Flush Bag (1000units/500ml NS) 2 bags added to field was administered by Sachin Cali RN; used for procedure; 10:32:39 Lidocaine 2% 20ml vial added to field was administered by Sachin Cali RN; for local anesthetic; 10:37:10 Physician arrived 10:37:10 --------ALL STOP TIME OUT------ 10:37:11 Final Timeout: patient, procedure, and site verified with staff and physician. All members of the team are in agreement. 10:37:13 Right Radial & Right Groin site verified by team. 10:37:18 Physical assessment completed. ASA score P 2 - A patient with mild systemic disease as per Wilber Jensen MD. 10:37:23 Sedation plan: IV Moderate Sedation Medication:Versed, Fentanyl 10:37:28 Use device set Radial Dx or PCI 10:37:31 Procedure started. 10:37:52 Local anesthetic to right radial artery with Lidocaine 2% by Wilber Jensen MD.INITIAL ACCESS ONLY 10:37:54 ACIST Syringe (21950) opened to sterile field. 10:37:54 Medline Cath Pack ([id number]) opened to sterile field. 10:37:55 Bag Decanter (2002S) opened to sterile field. 10:37:56 DIAGNOSTIC WIRE .035 260cm J wire (047562) opened to sterile field. 10:37:56 ACIST Hand Control (22450) opened to sterile field. 10:37:57 ACIST Manifold (57192) opened to sterile field. 10:37:57 Tegaderm 4 x 4 (1626W) opened to sterile field. 10:37:59 MBrace Wrist Support ([id number]) opened to sterile field. 10:38:00 NEEDLE Cook 21G 4cm Radial (P13068) opened to sterile field. 10:38:03 Versed 2 mg I.V. was administered by Sachin Cali RN; for sedation; 10:38:15 Fentanyl 50 mcg I.V. was administered by Sachin Cali RN; for sedation; 10:38:17 Zero performed for pressure channel P1 10:44:29 Unable to access radial artery 10:44:40 Local anesthetic to right femoral artery with Lidocaine 2% by Wilber Jensen MD.ADDITIONAL ACCESS 10:44:44 Access obtained with 4Fr micropunture. 10:44:54 A 5 Fr sheath was inserted into the Right Femoral artery 10:45:18 MICROPUNCTURE 4FR Cook ([id number]) opened to sterile field. 10:45:19 SHEATH Prelude 5Fr 0.035 (KIT-6K-07-035) opened to sterile field. 10:45:33 DIAGNOSTIC Multipack 5Fr catheter set (IY0992) opened to sterile field. 10:45:42 A MULTIPACK JL 4.0 5Fr catheter was advanced over the wire and used for Procedure. 10:45:48 Catheter removed. 10:45:57 Fentanyl 50 mcg I.V. was administered by Sachin Cali RN; for sedation; 10:46:21 A MULTIPACK 3DRC 5Fr catheter was advanced over the wire and used for Procedure. 10:50:14 A MULTIPACK Pigtail 5 Fr catheter was advanced over the wire and used for Procedure. 10:50:33 EXOSEAL 5Fr (EX500) opened to sterile field. 10:52:25 Catheter removed. 10:52:35 Sheath removed intact; hemostasis achieved with Exoseal to the Right Femoral artery. 10:52:40 Procedure ended.(Physican Out) 10:52:51 Fluoroscopy time 00.90 minutes. 10:52:55 Fluoroscopy dose: 267 mGy 10:52:55 Flurop Dose total: 267 10:53:01 Contrast amount:Isovue 300 35ml. 10:53:03 Sharps counted by scrub and verified by R.N. 10:53:06 Insertion/operative site no bleeding no hematoma. 10:53:08 Post Procedure Pulses reassessed and unchanged 10:53:13 Post procedure rhythm: sinus rhythm 10:53:16 Estimated blood loss: 10 ml 10:53:18 Post procedure instruction explained to patient.Patient verbalizes understanding. 10:53:34 Procedure type changed to Cath procedure, Diagnostic procedure, LHC, LHC w/Coronaries, Sedation Charges, Moderate Sedation up to 15 minutes 10:53:36 Procedure and supply charges have been captured, reviewed, submitted and are correct. 10:53:58 Procedure Complication : No complications 10:54:01 Vital chart was stopped 10:54:02 See physician's report for complete and final results. 10:54:05 Report given to [facility]. 10:54:11 Patient transfered to [facility] with Bed. 10:54:13 Procedure ended. 10:54:13 Full Disclosure recording stopped 10:54:16 End room use (Document Last) Device Usage Item Name Manufacture Quantity Catalog Number Hospital Part Current M inimal Lot# / Charge Number Stock Stock Serial# Code ACIST Syringe Acist 1 39978 324011 676366 661506 2 0 (15140) Medical [employer] Inc Medline Cath Cardinal 1 [id number] 337817 69497 599754 5 [facility] ([id number]) Bag Decanter Microtek 1 716291 59233 036433 5 () Medical Inc. DIAGNOSTIC WIRE [facility] [place] 1 894995 300158 559546 664813 3 0 .035 260cm J wire (053661) ACIST Hand Acist 1 83436 086980 633072 154235 5 Control (93303) [employer] Inc ACIST Manifold Acist 1 68215 123706 578683 972891 5 (92482) Medical Systems Inc Tegaderm 4 x 4 3M 1 1626W 747269 554783 665211 5 (1626W) MBrace Wrist Advanced 1 140-0250-00 999487 75324 506191 5 Support Vascular (900382711) Dynamics NEEDLE Cook 21G Cook Medical 1 S31690 309200 776168 681347 5 4cm Radial (H89049) MICROPUNCTURE Cook Medical 1 H55373 599280 364556 249454 5 4FR Cook (M40139) SHEATH Prelude Merit 1 ARY-0T-25-035 605439 472145 876768 5 5Fr 0.035 Medical (HWO-3Q-43-035) DIAGNOSTIC Cardinal 1 EB0462 696972 32456 861339 3 0 Multipack 5Fr Health catheter set (MK5553) MULTIPACK JL Cardinal 1 056604 5 4.0 5Fr Health catheter MULTIPACK 3DRC Cardinal 1 185940 5 5Fr catheter Health MULTIPACK Cardinal 1 163912 5 Pigtail 5 Fr Health catheter EXOSEAL 5Fr Cardinal 1 EX500 262172 784724 948182 1 0 (EX500) Health Signature Audit [place] Stage Time Signature Unsigned Intra-Procedure 01/29/2018 Sheri Ramirez 10:54:35 AM RT(R) Signatures Monitor : Sheri Ramirez Signature : RT Date : Time : [facility] [address] [place] [address]
[2018-01-28 18:01] LABS: BASOPHILS 0.2 % (0-2); HEMATOCRIT 34.7 % (36.0-48.0); HEMOGLOBIN 11.6 g/dL (12-16); IMMATURE GRANULOCYTES 0.3 % (0-5); MCHC 33.4 g/dL (31.0-37.0); MCV 92.8 fL (80.0-100.0); MEAN PLATELET VOLUME 9.4 fL (7.4-10.4); NEUTROPHILS 62.5 % (40-80); PLATELET COUNT 370 10x3/uL (130-400); RBC 3.74 10x6/uL (4.00-5.40); RDW 14.4 % (11.5-14.5); WBC 9.2 10x3/uL (4.8-10.8)
[2018-01-28 18:20] LABS: ALBUMIN 3.5 g/dL (3.4-5.0); ALKALINE PHOSPHATASE 61 U/L (46-116); ALT (SGPT) 27 U/L (10-68); BILIRUBIN - TOTAL 0.24 mg/dL (0.2-1.3); CALC OSMOLALITY 280 mosm/kg (275-300); CALCIUM 8.7 mg/dL (8.5-10.1); CARBON DIOXIDE 27.4 mmol/L (21.0-32.0); CHLORIDE - SERUM 106 mmol/L (98-107); GLUCOSE 93 mg/dL (74-106); POTASSIUM - SERUM 3.6 mmol/L (3.5-5.1); PROTEIN - SERUM 6.7 g/dL (6.4-8.2); SODIUM 140 mmol/L (136-145); UREA NITROGEN 19 mg/dL (7-18); eGFR NON AFRICAN AMERICAN 61 mL/min (90-120)
[2018-01-28 18:33] LABS: CREATINE KINASE 22 UL (21-215); PRO BNP 70 pg/mL (0-125)
[2018-01-28 18:34] LABS: TROPONIN-I < 0.017 ng/mL (0.000-0.060)
[2018-01-29 00:37] VITALS: BP 136/72; BMI 37.1
[2018-01-29 03:07] LABS: ALBUMIN 3.2 g/dL (3.4-5.0); ALKALINE PHOSPHATASE 57 U/L (46-116); BILIRUBIN - TOTAL 0.29 mg/dL (0.2-1.3); CALC OSMOLALITY 277 mosm/kg (275-300); CARBON DIOXIDE 27.6 mmol/L (21.0-32.0); CHLORIDE - SERUM 105 mmol/L (98-107); CKMB 0.6 U/L (0.0-3.6); CREATINE KINASE 49 UL (21-215); GLUCOSE 103 mg/dL (74-106); POTASSIUM - SERUM 3.7 mmol/L (3.5-5.1); PROTEIN - SERUM 6.3 g/dL (6.4-8.2); SODIUM 138 mmol/L (136-145); TROPONIN-I < 0.017 ng/mL (0.000-0.060); UREA NITROGEN 18 mg/dL (7-18); eGFR NON AFRICAN AMERICAN 61 mL/min (90-120)
[2018-01-29 03:10] LABS: ALT (SGPT) 16 U/L (10-68)
[2018-01-29 03:12] LABS: BASOPHILS 0.3 % (0-2); EOSINOPHILS 1.7 % (0-7); HEMATOCRIT 33.7 % (36.0-48.0); HEMOGLOBIN 11.3 g/dL (12-16); IMMATURE GRANULOCYTES 0.4 % (0-5); LYMPHOCYTES 33.8 % (15-50); MCH 31.5 pg (26.0-34.0); MCHC 33.5 g/dL (31.0-37.0); MCV 93.9 fL (80.0-100.0); MEAN PLATELET VOLUME 9.3 fL (7.4-10.4); MONOCYTES 5.7 % (2-11); NEUTROPHILS 58.1 % (40-80); PLATELET COUNT 326 10x3/uL (130-400); RBC 3.59 10x6/uL (4.00-5.40); RDW 14.5 % (11.5-14.5); WBC 7.7 10x3/uL (4.8-10.8)
[2018-01-29 04:30] VITALS: BP 120/54
[2018-01-29 08:23] VITALS: BP 118/72
[2018-01-29 10:11] LABS: BASOPHILS 0.3 % (0-2); EOSINOPHILS 2.1 % (0-7); HEMATOCRIT 36.1 % (36.0-48.0); HEMOGLOBIN 11.9 g/dL (12-16); IMMATURE GRANULOCYTES 0.3 % (0-5); LYMPHOCYTES 34.2 % (15-50); MCH 31.3 pg (26.0-34.0); MEAN PLATELET VOLUME 9.6 fL (7.4-10.4); MONOCYTES 7.6 % (2-11); NEUTROPHILS 55.5 % (40-80); PLATELET COUNT 312 10x3/uL (130-400); RDW 14.9 % (11.5-14.5); WBC 6.8 10x3/uL (4.8-10.8)
[2018-01-29 10:25] LABS: ANION GAP 12.4 mmol/L (8-16); CALCIUM 8.5 mg/dL (8.5-10.1); CARBON DIOXIDE 25.5 mmol/L (21.0-32.0); CREATININE - SERUM 0.9 mg/dL (0.6-1.3); POTASSIUM - SERUM 3.9 mmol/L (3.5-5.1)
[2018-01-29 11:15] LABS: CKMB 0.8 U/L (0.0-3.6); CREATINE KINASE 89 UL (21-215); TROPONIN-I < 0.017 ng/mL (0.000-0.060)
[2018-01-29 11:43] VITALS: BP 144/90
[2018-01-29 12:55] VITALS: Ht 152.4 cm; Wt 86.4 kg
== END 2018-01-29 14:36 | disposition home or self-care (01) ==
LOC: D.ER 17:22 → D.M2 23:07 → OBSVTIME 23:07 → D.M2 01-29 14:36
PROVIDERS: Emergency Medicine; Family Medicine; Internal Medicine Cardiovascular Disease
DX: R07.89 Other chest pain (principal); I10 Essential (primary) hypertension; J44.9 Chronic obstructive pulmonary disease, unspecified; D64.9 Anemia, unspecified; E78.5 Hyperlipidemia, unspecified; F31.9 Bipolar disorder, unspecified; G43.909 Migraine, unspecified, not intractable, without status migrainosus

== ENCOUNTER 2018-02-06 16:46 | Emergency (ER) | payer MEDICARE ==
[~2018-02-06] VITALS: Ht 152.4 cm; Wt 86.4 kg
[2018-02-06 16:48] VITALS: Ht 152.4 cm; Wt 86.4 kg
[2018-02-06] MEDS ORDERED: BACLOFEN20 M1 PO (18:09)
[2018-02-06] MEDS ORDERED: TALWIN NX1 TAB PO (18:09)
[2018-02-06 19:06] VITALS: BP 132/85
== END 2018-02-06 19:06 | disposition home or self-care (01) ==
LOC: D.ER 16:46
DX: S39.012A Strain of muscle, fascia and tendon of lower back, initial encounter (principal); W18.30XA Fall on same level, unspecified, initial encounter; Y93.89 Activity, other specified; Y92.019 Unspecified place in single-family (private) house as the place of occurrence of the external cause; M54.6 Pain in thoracic spine; Z86.73 Personal history of transient ischemic attack (TIA), and cerebral infarction without residual deficits; I10 Essential (primary) hypertension; J44.9 Chronic obstructive pulmonary disease, unspecified; K21.9 Gastro-esophageal reflux disease without esophagitis; F17.200 Nicotine dependence, unspecified, uncomplicated

== ENCOUNTER 2018-02-08 12:33 | Emergency (ER) | payer MEDICARE ==
[~2018-02-08] VITALS: Ht 152.4 cm; Wt 86.4 kg
[~2018-02-08 12:33] MED LIST changes: +BACLOFEN20 M1 PO; +TALWIN NX1 TAB PO
[2018-02-08 12:39] VITALS: Ht 152.4 cm; Wt 86.4 kg
[2018-02-08 15:00] VITALS: BP 160/099
== END 2018-02-08 15:05 | disposition home or self-care (01) ==
LOC: D.ER 12:33
DX: R07.9 Chest pain, unspecified (principal); Z86.711 Personal history of pulmonary embolism; I10 Essential (primary) hypertension; J44.9 Chronic obstructive pulmonary disease, unspecified; F17.200 Nicotine dependence, unspecified, uncomplicated

== ENCOUNTER 2018-02-17 18:21 | Emergency (ER) | payer MEDICARE ==
[~2018-02-17] VITALS: Ht 152.4 cm; Wt 86.4 kg
[2018-02-17 18:32] VITALS: Ht 152.4 cm; Wt 86.4 kg
[2018-02-17] MEDS ORDERED: VIBRAMYCIN 100100 MG PO (19:24)
[2018-02-17] MEDS ORDERED: VOLTAREN75 MG PO (19:24)
[2018-02-17 19:35] VITALS: BP 165/119
== END 2018-02-17 19:35 | disposition home or self-care (01) ==
LOC: D.ER 18:21
DX: L03.114 Cellulitis of left upper limb (principal); I10 Essential (primary) hypertension; J44.9 Chronic obstructive pulmonary disease, unspecified; F17.200 Nicotine dependence, unspecified, uncomplicated

== ENCOUNTER 2018-02-26 19:56 | Emergency (ER) | payer MEDICARE ==
[~2018-02-26] VITALS: Ht 152.4 cm; Wt 86.2 kg
[~2018-02-26 19:56] MED LIST changes: +VIBRAMYCIN 100100 MG PO; +VOLTAREN75 MG PO
[2018-02-26 20:04] VITALS: Ht 152.4 cm; Wt 86.2 kg
[2018-02-26 20:26] LABS: BASOPHILS 0.5 % (0-2); EOSINOPHILS 1.5 % (0-7); HEMATOCRIT 37.8 % (36.0-48.0); HEMOGLOBIN 12.9 g/dL (12-16); LYMPHOCYTES 35.1 % (15-50); MCHC 34.1 g/dL (31.0-37.0); MCV 90.9 fL (80.0-100.0); MEAN PLATELET VOLUME 9.5 fL (7.4-10.4); NEUTROPHILS 53.9 % (40-80); PLATELET COUNT 435 10x3/uL (130-400); RBC 4.16 10x6/uL (4.00-5.40); WBC 6.5 10x3/uL (4.8-10.8)
[2018-02-26 20:41] LABS: ALBUMIN 4.3 g/dL (3.4-5.0); ALKALINE PHOSPHATASE 73 U/L (46-116); ALT (SGPT) 22 U/L (10-68); BILIRUBIN - TOTAL 0.62 mg/dL (0.2-1.3); CALC OSMOLALITY 281 mosm/kg (275-300); CALCIUM 9.4 mg/dL (8.5-10.1); CARBON DIOXIDE 26.8 mmol/L (21.0-32.0); CHLORIDE - SERUM 102 mmol/L (98-107); CREATININE - SERUM 1.1 mg/dL (0.6-1.3); GLUCOSE 107 mg/dL (74-106); POTASSIUM - SERUM 3.3 mmol/L (3.5-5.1); PROTEIN - SERUM 7.6 g/dL (6.4-8.2); SODIUM 141 mmol/L (136-145); UREA NITROGEN 14 mg/dL (7-18); eGFR NON AFRICAN AMERICAN 55 mL/min (90-120)
[2018-02-26 20:44] LABS: AMYLASE - SERUM 56 U/L (25-115); LIPASE 118 U/L (73-393)
[2018-02-26 20:46] LABS: TROPONIN-I < 0.017 ng/mL (0.000-0.060)
[2018-02-26 21:38] LABS: APPEARANCE CLOUDY (CLEAR); COLOR DK YELLOW (YELLOW); SPECIFIC GRAVITY 1.025 (1.005-1.020)
[2018-02-26 21:39] LABS: BILIRUBIN NEGATIVE (NEGATIVE); GLUCOSE NEGATIVE (NEGATIVE); KETONE NEGATIVE (NEGATIVE); NITRITE NEGATIVE (NEGATIVE); PROTEIN 1+ mg/dL (NEGATIVE); UROBILINOGEN NORMAL (NORMAL)
[2018-02-26 21:40] LABS: BACTERIA MODERATE /hpf (NONE SEEN); RED CELLS - URINE 0-5 /hpf (0-5)
[2018-02-26 21:44] LABS: MUCUS <1+ /lpf (NONE SEEN)
[2018-02-26] MEDS ORDERED: MACROBID100 MG PO (23:06)
[2018-02-26] MEDS ORDERED: ZOFRAN4 MG PO (23:06)
[2018-02-26 23:40] VITALS: BP 122/78
== END 2018-02-26 23:40 | disposition home or self-care (01) ==
LOC: D.ER 19:56
PROVIDERS: Family Medicine
DX: N39.0 Urinary tract infection, site not specified (principal); I10 Essential (primary) hypertension; J44.9 Chronic obstructive pulmonary disease, unspecified; F17.200 Nicotine dependence, unspecified, uncomplicated

== ENCOUNTER 2018-03-17 16:06 | Emergency (ER) | payer MEDICARE ==
[~2018-03-17] VITALS: Ht 152.4 cm; Wt 86.4 kg
[~2018-03-17 16:06] MED LIST changes: +MACROBID100 MG PO
[2018-03-17 16:09] VITALS: Ht 152.4 cm; Wt 86.4 kg
[2018-03-17] MEDS ORDERED: ROBAXIN500 MG PO (18:19)
[2018-03-17 19:16] VITALS: BP 114/96
== END 2018-03-17 19:16 | disposition home or self-care (01) ==
LOC: D.ER 16:06
DX: M25.551 Pain in right hip (principal); W18.30XA Fall on same level, unspecified, initial encounter; Y93.89 Activity, other specified; Y92.019 Unspecified place in single-family (private) house as the place of occurrence of the external cause; M54.5 Low back pain; I10 Essential (primary) hypertension; J44.9 Chronic obstructive pulmonary disease, unspecified; F17.200 Nicotine dependence, unspecified, uncomplicated

== ENCOUNTER 2018-03-23 14:40 | Emergency (ER) | payer MEDICARE ==
[~2018-03-23] VITALS: Ht 152.4 cm; Wt 86.2 kg
[~2018-03-23 14:40] MED LIST changes: +ROBAXIN500 MG PO
[2018-03-23 14:45] VITALS: Ht 152.4 cm; Wt 86.2 kg
[2018-03-23] MEDS ORDERED: VOLTAREN100 GM TOPICAL (16:12)
[2018-03-23 17:09] VITALS: BP 157/88
== END 2018-03-23 17:06 | disposition home or self-care (01) ==
LOC: D.ER 14:40
DX: S83.92XA Sprain of unspecified site of left knee, initial encounter (principal); W18.30XA Fall on same level, unspecified, initial encounter; Y93.89 Activity, other specified; Y92.019 Unspecified place in single-family (private) house as the place of occurrence of the external cause; S80.02XA Contusion of left knee, initial encounter

== ENCOUNTER 2018-04-22 16:47 | Emergency (ER) | payer MEDICARE ==
[~2018-04-22] VITALS: Ht 152.4 cm; Wt 84.1 kg
[~2018-04-22 16:47] MED LIST changes: +VOLTAREN100 GM TOPICAL
[2018-04-22 16:51] VITALS: Ht 152.4 cm; Wt 84.1 kg
[2018-04-22 17:54] LABS: BASOPHILS 0.6 % (0-2); EOSINOPHILS 1.2 % (0-7); HEMATOCRIT 37.1 % (36.0-48.0); HEMOGLOBIN 13.1 g/dL (12-16); IMMATURE GRANULOCYTES 0.5 % (0-5); LYMPHOCYTES 29.6 % (15-50); MCHC 35.3 g/dL (31.0-37.0); MCV 90.7 fL (80.0-100.0); MEAN PLATELET VOLUME 9.3 fL (7.4-10.4); MONOCYTES 7.4 % (2-11); NEUTROPHILS 60.7 % (40-80); PLATELET COUNT 361 10x3/uL (130-400); RBC 4.09 10x6/uL (4.00-5.40); RDW 13.9 % (11.5-14.5); WBC 6.7 10x3/uL (4.8-10.8)
[2018-04-22 18:03] LABS: APPEARANCE CLEAR (CLEAR); BILIRUBIN NEGATIVE (NEGATIVE); COLOR YELLOW (YELLOW); GLUCOSE NEGATIVE (NEGATIVE); KETONE NEGATIVE (NEGATIVE); NITRITE NEGATIVE (NEGATIVE); PROTEIN NEGATIVE (NEGATIVE); UROBILINOGEN NORMAL (NORMAL)
[2018-04-22 18:57] LABS: ALBUMIN 3.7 g/dL (3.4-5.0); ALKALINE PHOSPHATASE 65 U/L (46-116); ALT (SGPT) 20 U/L (10-68); BILIRUBIN - TOTAL 0.52 mg/dL (0.2-1.3); CALC OSMOLALITY 275 mosm/kg (275-300); CARBON DIOXIDE 26.5 mmol/L (21.0-32.0); CHLORIDE - SERUM 102 mmol/L (98-107); CREATININE - SERUM 0.9 mg/dL (0.6-1.3); GLUCOSE 84 mg/dL (74-106); PROTEIN - SERUM 7.4 g/dL (6.4-8.2); SODIUM 139 mmol/L (136-145); UREA NITROGEN 11 mg/dL (7-18); eGFR NON AFRICAN AMERICAN 69 mL/min (90-120)
[2018-04-22 18:58] LABS: AMYLASE - SERUM 49 U/L (25-115); LIPASE 120 U/L (73-393); TROPONIN-I < 0.017 ng/mL (0.000-0.060)
[2018-04-22] MEDS ORDERED: ZOFRAN ODT4 MG/UDTAB PO (19:40)
[2018-04-22] MEDS ORDERED: BENTYL 20 MG TA20 MG PO (19:40)
[2018-04-22 20:02] VITALS: BP 125/78
== END 2018-04-22 20:03 | disposition home or self-care (01) ==
LOC: D.ER 16:47
PROVIDERS: Family Medicine
DX: R10.31 Right lower quadrant pain (principal); R11.0 Nausea; I10 Essential (primary) hypertension; J44.9 Chronic obstructive pulmonary disease, unspecified; F17.200 Nicotine dependence, unspecified, uncomplicated

== ENCOUNTER 2018-05-13 11:30 | Emergency (ER) | payer MEDICARE ==
[~2018-05-13] VITALS: Ht 152.4 cm; Wt 81.8 kg
[~2018-05-13 11:30] MED LIST changes: +BENTYL 20 MG TA20 MG PO
[2018-05-13 11:33] VITALS: Ht 152.4 cm; Wt 81.8 kg
[2018-05-13 12:20] LABS: BASOPHILS 0.4 % (0-2); HEMATOCRIT 39.7 % (36.0-48.0); HEMOGLOBIN 13.8 g/dL (12-16); LYMPHOCYTES 25.2 % (15-50); MCHC 34.8 g/dL (31.0-37.0); MCV 92.1 fL (80.0-100.0); MEAN PLATELET VOLUME 9.3 fL (7.4-10.4); MONOCYTES 6.7 % (2-11); NEUTROPHILS 64.7 % (40-80); PLATELET COUNT 369 10x3/uL (130-400); RBC 4.31 10x6/uL (4.00-5.40); RDW 14.1 % (11.5-14.5); WBC 5.4 10x3/uL (4.8-10.8)
[2018-05-13 12:30] LABS: ALBUMIN 3.7 g/dL (3.4-5.0); ALKALINE PHOSPHATASE 71 U/L (46-116); ALT (SGPT) 27 U/L (10-68); BILIRUBIN - TOTAL 0.34 mg/dL (0.2-1.3); CALC OSMOLALITY 279 mosm/kg (275-300); CALCIUM 9.1 mg/dL (8.5-10.1); CHLORIDE - SERUM 103 mmol/L (98-107); CREATININE - SERUM 1.1 mg/dL (0.6-1.3); GLUCOSE 99 mg/dL (74-106); POTASSIUM - SERUM 3.2 mmol/L (3.5-5.1); PROTEIN - SERUM 7.7 g/dL (6.4-8.2); SODIUM 141 mmol/L (136-145); UREA NITROGEN 11 mg/dL (7-18); eGFR NON AFRICAN AMERICAN 55 mL/min (90-120)
[2018-05-13 12:33] LABS: CREATINE KINASE 63 UL (21-215); PRO BNP 38 pg/mL (0-125)
[2018-05-13 12:34] LABS: TROPONIN-I < 0.017 ng/mL (0.000-0.060)
[2018-05-13] MEDS ORDERED: NORCO 5/325 TAB1 TAB PO (16:10)
[2018-05-13 16:30] VITALS: BP 119/77
== END 2018-05-13 16:37 | disposition home or self-care (01) ==
LOC: D.ER 11:30
PROVIDERS: Emergency Medicine
DX: R07.89 Other chest pain (principal)

== ENCOUNTER 2018-05-16 20:20 | Emergency (ER) | payer MEDICARE ==
[~2018-05-16] VITALS: Ht 152.4 cm; Wt 81.8 kg
[~2018-05-16 20:20] MED LIST changes: +NORCO 5/325 TAB1 TAB PO
[2018-05-16 20:37] VITALS: Ht 152.4 cm; Wt 81.8 kg
[2018-05-16 21:16] LABS: BASOPHILS 0.5 % (0-2); EOSINOPHILS 3.3 % (0-7); HEMATOCRIT 36.7 % (36.0-48.0); HEMOGLOBIN 12.6 g/dL (12-16); IMMATURE GRANULOCYTES 0.2 % (0-5); LYMPHOCYTES 33.4 % (15-50); MCH 32.1 pg (26.0-34.0); MCHC 34.3 g/dL (31.0-37.0); MCV 93.4 fL (80.0-100.0); MEAN PLATELET VOLUME 8.9 fL (7.4-10.4); MONOCYTES 9.3 % (2-11); NEUTROPHILS 53.3 % (40-80); PLATELET COUNT 364 10x3/uL (130-400); RBC 3.93 10x6/uL (4.00-5.40); RDW 13.9 % (11.5-14.5); WBC 6.4 10x3/uL (4.8-10.8)
[2018-05-16 21:32] LABS: ALBUMIN 3.7 g/dL (3.4-5.0); ALKALINE PHOSPHATASE 72 U/L (46-116); ALT (SGPT) 20 U/L (10-68); BILIRUBIN - TOTAL 0.24 mg/dL (0.2-1.3); CALC OSMOLALITY 280 mosm/kg (275-300); CHLORIDE - SERUM 103 mmol/L (98-107); GLUCOSE 93 mg/dL (74-106); POTASSIUM - SERUM 4.3 mmol/L (3.5-5.1); PROTEIN - SERUM 7.3 g/dL (6.4-8.2); SODIUM 140 mmol/L (136-145); UREA NITROGEN 18 mg/dL (7-18); eGFR NON AFRICAN AMERICAN 61 mL/min (90-120)
[2018-05-16 21:43] LABS: AMYLASE - SERUM 65 U/L (25-115); CKMB 0.7 U/L (0.0-3.6); CREATINE KINASE 56 UL (21-215); LIPASE 221 U/L (73-393); TROPONIN-I < 0.017 ng/mL (0.000-0.060)
[2018-05-16 21:56] LABS: APPEARANCE CLEAR (CLEAR); BILIRUBIN NEGATIVE (NEGATIVE); COLOR YELLOW (YELLOW); GLUCOSE NEGATIVE (NEGATIVE); KETONE NEGATIVE (NEGATIVE); NITRITE NEGATIVE (NEGATIVE); PROTEIN NEGATIVE (NEGATIVE); UROBILINOGEN NORMAL (NORMAL)
[2018-05-16 21:57] LABS: UDS - AMPHET NEGATIVE QUAL (NEGATIVE); UDS - BARB NEGATIVE QUAL (NEGATIVE); UDS - BENZO POSITIVE QUAL (NEGATIVE); UDS - COCAINE NEGATIVE QUAL (NEGATIVE); UDS - OPIATE POSITIVE QUAL (NEGATIVE); UDS - PCP NEGATIVE QUAL (NEGATIVE); UDS - THC NEGATIVE QUAL (NEGATIVE)
[2018-05-16] MEDS ORDERED: PROTONIX40 MG PO (23:00)
[2018-05-16] MEDS ORDERED: ZOFRAN4 MG PO (23:00)
[2018-05-16 23:53] VITALS: BP 141/78
== END 2018-05-16 23:55 | disposition home or self-care (01) ==
LOC: D.ER 20:20
PROVIDERS: Family Medicine
DX: K29.70 Gastritis, unspecified, without bleeding (principal); R11.10 Vomiting, unspecified; I10 Essential (primary) hypertension; J44.9 Chronic obstructive pulmonary disease, unspecified; R00.1 Bradycardia, unspecified; I45.10 Unspecified right bundle-branch block

== ENCOUNTER 2018-05-18 05:31 | Emergency (ER) | payer MEDICARE ==
[~2018-05-18] VITALS: Ht 152.4 cm; Wt 75.9 kg
[~2018-05-18 05:31] MED LIST changes: +PROTONIX40 MG PO
[2018-05-18 05:34] VITALS: Ht 152.4 cm; Wt 75.9 kg
[2018-05-18 06:29] LABS: BASOPHILS 0.3 % (0-2); EOSINOPHILS 2.1 % (0-7); HEMOGLOBIN 12.9 g/dL (12-16); IMMATURE GRANULOCYTES 0.2 % (0-5); LYMPHOCYTES 20.6 % (15-50); MCH 32.7 pg (26.0-34.0); MCHC 34.9 g/dL (31.0-37.0); MCV 93.7 fL (80.0-100.0); MEAN PLATELET VOLUME 9.4 fL (7.4-10.4); MONOCYTES 7.4 % (2-11); NEUTROPHILS 69.4 % (40-80); PLATELET COUNT 400 10x3/uL (130-400); RBC 3.95 10x6/uL (4.00-5.40); RDW 13.8 % (11.5-14.5); WBC 6.7 10x3/uL (4.8-10.8)
[2018-05-18 06:38] LABS: ALBUMIN 3.9 g/dL (3.4-5.0); ALKALINE PHOSPHATASE 66 U/L (46-116); ALT (SGPT) 23 U/L (10-68); CALC OSMOLALITY 284 mosm/kg (275-300); CALCIUM 9.4 mg/dL (8.5-10.1); CARBON DIOXIDE 29.1 mmol/L (21.0-32.0); CHLORIDE - SERUM 104 mmol/L (98-107); CREATININE - SERUM 0.9 mg/dL (0.6-1.3); GLUCOSE 88 mg/dL (74-106); POTASSIUM - SERUM 4.4 mmol/L (3.5-5.1); PROTEIN - SERUM 7.5 g/dL (6.4-8.2); SODIUM 143 mmol/L (136-145); UREA NITROGEN 16 mg/dL (7-18); eGFR NON AFRICAN AMERICAN 69 mL/min (90-120)
[2018-05-18 06:41] LABS: LIPASE 109 U/L (73-393); TROPONIN-I < 0.017 ng/mL (0.000-0.060)
[2018-05-18 06:51] VITALS: BP 130/54
== END 2018-05-18 06:51 | disposition home or self-care (01) ==
LOC: D.ER 05:31
PROVIDERS: Family Medicine
DX: R10.9 Unspecified abdominal pain (principal); I10 Essential (primary) hypertension; J44.9 Chronic obstructive pulmonary disease, unspecified

== ENCOUNTER 2018-08-20 16:42 | Emergency (ER) | payer OTHER, MEDICARE ==
[~2018-08-20] VITALS: Ht 152.4 cm; Wt 81.8 kg
[2018-08-20 16:48] VITALS: Ht 152.4 cm; Wt 81.8 kg
[2018-08-20 17:46] LABS: BASOPHILS 0.3 % (0-2); EOSINOPHILS 1.5 % (0-7); HEMATOCRIT 37.9 % (36.0-48.0); HEMOGLOBIN 13.3 g/dL (12-16); IMMATURE GRANULOCYTES 0.1 % (0-5); LYMPHOCYTES 30.2 % (15-50); MCH 32.6 pg (26.0-34.0); MCHC 35.1 g/dL (31.0-37.0); MCV 92.9 fL (80.0-100.0); MEAN PLATELET VOLUME 9.9 fL (7.4-10.4); MONOCYTES 8.2 % (2-11); NEUTROPHILS 59.7 % (40-80); PLATELET COUNT 367 10x3/uL (130-400); RBC 4.08 10x6/uL (4.00-5.40); RDW 13.6 % (11.5-14.5); WBC 6.8 10x3/uL (4.8-10.8)
[2018-08-20 18:06] LABS: ALBUMIN 4.2 g/dL (3.4-5.0); ALKALINE PHOSPHATASE 76 U/L (46-116); ALT (SGPT) 20 U/L (10-68); BILIRUBIN - TOTAL 0.43 mg/dL (0.2-1.3); CALC OSMOLALITY 282 mosm/kg (275-300); CARBON DIOXIDE 30.3 mmol/L (21.0-32.0); CHLORIDE - SERUM 105 mmol/L (98-107); GLUCOSE 98 mg/dL (74-106); POTASSIUM - SERUM 3.1 mmol/L (3.5-5.1); SODIUM 141 mmol/L (136-145); UREA NITROGEN 18 mg/dL (7-18); eGFR NON AFRICAN AMERICAN 61 mL/min (90-120)
[2018-08-20 18:10] LABS: INR 1.32 (0.85-1.17); PROTIME 15.8 SECONDS (11.6-15.0)
[2018-08-20 18:17] LABS: CKMB 0.5 U/L (0.0-3.6); CREATINE KINASE 67 UL (21-215); MAGNESIUM - SERUM 2.4 mg/dL (1.8-2.4); THYROID STIMULATING HORMONE 3.51 uIU/mL (0.36-3.74)
[2018-08-20 18:31] LABS: TROPONIN-I < 0.017 ng/mL (0.000-0.060)
[2018-08-20 19:28] VITALS: BP 142/80
== END 2018-08-20 19:28 | disposition home or self-care (01) ==
LOC: D.ER 16:42
PROVIDERS: Family Medicine
DX: E87.6 Hypokalemia (principal); I10 Essential (primary) hypertension

== ENCOUNTER 2018-11-07 17:18 | Observation (INO) | payer MEDICARE, MEDICAID ==
[~2018-11-07] VITALS: Ht 152.4 cm; Wt 81.6 kg
[~2018-11-07 17:18] MED LIST changes: +ALBUTEROL SULF8.5 GM INH; +BACLOFEN10 MG PO; +CLEOCIN HCL150 MG PO; +DIOVAN80 MG PO; +HYDROCODON-ACE1 EA10 PO; +LIPITOR80 MG PO; +MUCINEX600 MG PO; +PHENERGAN25 M1 PO; +TAMIFLU75 MG PO; +TESSALON PERLE100 MG PO; +WELLBUTRIN SR150 MG PO; +ZITHROMAX500 MG PO; +ZOLOFT100 MG PO
--- NOTE | 2018-11-07 18:04 | NUR ---
[id number] Trauma Band Number
--- NOTE | 2018-11-07 18:05 | NUR ---
EKG NSR INCOMPLETE RIGHT BUNDLE BRANCH BLOCK POSSIBLE LATERAL INFARCT, AGE UNDETERMINED ABNORMAL ECG
--- NOTE | 2018-11-07 18:08 | NUR ---
MODEARTE SIZED HEMATOMA TO THE BACK LEFT OCCIPITAL REGION - C- COLLAR IN PLACE BY EMS.
[2018-11-07 18:27] LABS: BASOPHILS 0.3 % (0-2); EOSINOPHILS 3.1 % (0-7); HEMATOCRIT 31.7 % (36.0-48.0); HEMOGLOBIN 10.5 g/dL (12-16); IMMATURE GRANULOCYTES 0.1 % (0-5); LYMPHOCYTES 19.1 % (15-50); MCH 31.6 pg (26.0-34.0); MCHC 33.1 g/dL (31.0-37.0); MCV 95.5 fL (80.0-100.0); MEAN PLATELET VOLUME 9.1 fL (7.4-10.4); MONOCYTES 5.2 % (2-11); NEUTROPHILS 72.2 % (40-80); PLATELET COUNT 312 10x3/uL (130-400); RBC 3.32 10x6/uL (4.00-5.40); RDW 13.2 % (11.5-14.5); WBC 7.4 10x3/uL (4.8-10.8)
[2018-11-07 18:40] LABS: ALBUMIN 3.7 g/dL (3.4-5.0); ALKALINE PHOSPHATASE 86 U/L (46-116); ALT (SGPT) 35 U/L (10-68); BILIRUBIN - TOTAL 0.46 mg/dL (0.2-1.3); CALC OSMOLALITY 294 mosm/kg (275-300); CALCIUM 8.8 mg/dL (8.5-10.1); CARBON DIOXIDE 30.7 mmol/L (21.0-32.0); CHLORIDE - SERUM 108 mmol/L (98-107); CREATININE - SERUM 1.1 mg/dL (0.6-1.3); GLUCOSE 92 mg/dL (74-106); POTASSIUM - SERUM 4.2 mmol/L (3.5-5.1); PROTEIN - SERUM 6.8 g/dL (6.4-8.2); SODIUM 146 mmol/L (136-145); UREA NITROGEN 25 mg/dL (7-18); eGFR NON AFRICAN AMERICAN 55 mL/min (90-120)
[2018-11-07 18:49] LABS: LIPASE 70 U/L (73-393); PRO BNP 56 pg/mL (0-125); THYROID STIMULATING HORMONE 1.32 uIU/mL (0.36-3.74)
[2018-11-07 18:51] LABS: TROPONIN-I < 0.017 ng/mL (0.000-0.060)
[2018-11-07 19:00] VITALS: BP 142/77
[2018-11-07 19:05] LABS: APTT 31.2 SECONDS (22.8-39.4); INR 1.38 (0.85-1.17); PROTIME 16.4 SECONDS (11.6-15.0)
[2018-11-07 19:49] VITALS: BP 143/74
--- NOTE | 2018-11-07 19:50 | NUR ---
medication given per order, o2 PLACED VIA NC 2LPM, PT IS VERY RELAXED RESTING QUIETLY AT THIS TIME.
[2018-11-07 20:22] VITALS: BP 118/62
[2018-11-07 21:30] VITALS: BP 101/59
[2018-11-07 21:55] LABS: APPEARANCE CLOUDY (CLEAR); BILIRUBIN NEGATIVE (NEGATIVE); COLOR YELLOW (YELLOW); GLUCOSE NEGATIVE (NEGATIVE); KETONE NEGATIVE (NEGATIVE); NITRITE NEGATIVE (NEGATIVE); PROTEIN NEGATIVE (NEGATIVE); UROBILINOGEN NORMAL (NORMAL)
[2018-11-07 21:56] LABS: RED CELLS - URINE 0-5 /hpf (0-5); WHITE CELLS - URINE 25-50 /hpf (0-5)
[2018-11-07 21:57] LABS: BACTERIA MANY /hpf (NONE SEEN); MUCUS <1+ /lpf (NONE SEEN)
[2018-11-07 22:06] LABS: UDS - AMPHET NEGATIVE QUAL (NEGATIVE); UDS - BARB NEGATIVE QUAL (NEGATIVE); UDS - BENZO NEGATIVE QUAL (NEGATIVE); UDS - COCAINE NEGATIVE QUAL (NEGATIVE); UDS - OPIATE POSITIVE QUAL (NEGATIVE); UDS - PCP NEGATIVE QUAL (NEGATIVE); UDS - THC NEGATIVE QUAL (NEGATIVE)
[2018-11-07 23:17] VITALS: BP 97/61
--- NOTE | 2018-11-07 23:45 | NUR ---
attempted to call report, was told latonia would call me back.
[2018-11-07 23:53] VITALS: BP 137/75
[2018-11-08] VITALS (7 sets, daily range): BP systolic 122–153; BP diastolic 67–93; Ht 152.4 cm; Wt 81.6 kg
--- NOTE | 2018-11-08 00:15 | NUR ---
RECIEVED TO FLOOR, ACCOMPANIED BY STAFF.A&O X 4. AMBULATED TO BED, STAND BY ASSIST. GAIT APPEARS WEAK. VITAL SIGNS STABLE, SCDs AND SAMINA ALARM IN USE, SKID-PROOF SOCKS AND YELLOW BAND APPLIED, BED IN LOW POSITION, CL IN REACH, SIDE RAILS X 2. PT IS VERY TALKATIVE HAS TROUBLE KEEPING STILL(CONTINUOUS MOVEMENT OF LEGS AND HANDS)- PT STATES THIS IS NORMAL FOR HER. REPORTS NAUSEA AND HEADACHE. ALSO STATES SHE WOULD LIKE A SANDWICH. WILL CONTINUE TO MONITOR.
--- NOTE | 2018-11-08 03:08 | NUR ---
MONITORS NOTIFIED FOR TELEMETRY. INFORMED THERE ARE NO AVAILABLE MONITORS.
[2018-11-08 07:46] LABS: BASOPHILS 0.5 % (0-2); EOSINOPHILS 3.5 % (0-7); HEMATOCRIT 30.9 % (36.0-48.0); HEMOGLOBIN 10.1 g/dL (12-16); IMMATURE GRANULOCYTES 0.2 % (0-5); LYMPHOCYTES 19.3 % (15-50); MCH 31.6 pg (26.0-34.0); MCHC 32.7 g/dL (31.0-37.0); MCV 96.6 fL (80.0-100.0); MEAN PLATELET VOLUME 9.7 fL (7.4-10.4); MONOCYTES 8.5 % (2-11); PLATELET COUNT 311 10x3/uL (130-400); RDW 13.6 % (11.5-14.5); WBC 6.6 10x3/uL (4.8-10.8)
[2018-11-08 08:15] LABS: ALKALINE PHOSPHATASE 65 U/L (46-116); ALT (SGPT) 30 U/L (10-68); BILIRUBIN - TOTAL 0.47 mg/dL (0.2-1.3); CALC OSMOLALITY 285 mosm/kg (275-300); CARBON DIOXIDE 27.2 mmol/L (21.0-32.0); CHLORIDE - SERUM 108 mmol/L (98-107); CKMB 0.9 U/L (0.0-3.6); CREATINE KINASE 173 UL (21-215); CREATININE - SERUM 0.8 mg/dL (0.6-1.3); GLUCOSE 85 mg/dL (74-106); POTASSIUM - SERUM 4.1 mmol/L (3.5-5.1); PROTEIN - SERUM 6.4 g/dL (6.4-8.2); SODIUM 143 mmol/L (136-145); TROPONIN-I < 0.017 ng/mL (0.000-0.060); UREA NITROGEN 18 mg/dL (7-18); eGFR NON AFRICAN AMERICAN 79 mL/min (90-120)
--- NOTE | 2018-11-08 08:51 | NUR ---
PT C/O HEAD AND NECK PAIN RATING 9/10 ON PAIN SCALE. C/L IN REACH AT BEDSIDE.
--- NOTE | 2018-11-08 13:18 | NUR ---
I have reviewed this patient and I concur with the Shift Assessment completed by the Licensed Practical Nurse today this shift.
--- NOTE | 2018-11-08 14:43 | NUR ---
C/O HEAD AND SHOULDER PAIN RATING 9/10 ON PAIN SCALE WAS MEDICATED WITH PRN MEDS PER ORDERS. C/L IN REACH AT BEDSIDE.
--- NOTE | 2018-11-08 17:13 | MORECARE ---
CASE MANAGEMENT DISCHARGE SUMMARY PATIENT: JJ FIELD UNIT: [id number] ADM DATE: 11/07/18 AGE: 57 : 64 SEX: F ROOM/BED: D.2229 AUTHOR: SANDRINE SHERIFF PHYSICIAN: REFERRING PHYSICIAN: AAYUSH SANCHEZ MD DATE OF SERVICE: 11/08/18 Discharge Plan Patient Name: JJ FIELD Facility: [facility]:[place] : 1960 Planned Disposition: Home Anticipated Discharge Date: Discharge Date: Expected LOS: Initial Reviewer: [email or web address] Initial Review Date: 11/08/2018 Generated: 11/08/18 6:13 pm Coverage Notice Reviewer: [email or web address] - Jeri Careyestela Notice Issued Date-Time: 11/08/2018 17:11 Notice Type: Medicare Outpatient Observation Notice Notice Delivered To: Patient Relationship to Patient: Self Food Preparer Name: Delivery Method: HAND - Hand Delivered Deyanira Days: Prior Verbal Notification: Recipient Understood Notice: Yes Recipient Signature: Yes Med Rec Note Co-signed by Attending: Coverage Notice Comment: [place] delivered, explained, signed, given, copy placed in MR Patient Name: JJ FIELD Page [id number] at 1713 All edits/amendments must be made on the electronic document DICTATION DATE: 11/08/181712 FISHING CAPTAIN: SEBASTIEN 11/08/181712 RPT#: [id number] DC DATE: STATUS: ADM IN [facility] [address] [place] [address] END OF REPORT
--- NOTE | 2018-11-08 17:20 | MORECARE ---
CASE MANAGEMENT DISCHARGE SUMMARY PATIENT: JJ FIELD UNIT: [id number] ADM DATE: 11/07/18 AGE: 57 : 64 SEX: F ROOM/BED: D.2229 AUTHOR: JAZIEL,DOC PHYSICIAN: REFERRING PHYSICIAN: AAYUSH SANCHEZ MD DATE OF SERVICE: 11/08/18 Discharge Plan Patient Name: JJ FIELD Facility: [facility]:[place] : 1960 Planned Disposition: Home Anticipated Discharge Date: Discharge Date: Expected LOS: Initial Reviewer: [email or web address] Initial Review Date: 11/08/2018 Generated: 11/08/18 6:20 pm Comments DCP- Discharge Planning Updated by [email or web address]: Jeri Choe on 11/08/18 4:[address] Patient Name: JJ FIELD Admission Status: ER Accout number: [id number] Admission Date: 11-07-2018 : 1960 Admission Diagnosis: Attending: AAYUSH SANCHEZ Current LOS: 1 Anticipated DC Date: Planned Disposition: Home Primary Insurance: [employer] ADV Discharge Planning Comments: CM met with patient to complete initial dc planning assessment. CM educated patient on the CM role and verbal consent given by patient to complete assessment. Patient lives at home with her adult daughter and her . At discharge patient plans to return and feels this is a safe discharge. CM discussed availability of home health, rehab services, and medical equipment. Patient denied known discharge needs at this time. MONTGOMERY explained and given, copy placed in MR. CM will continue to follow and will assist as needed with dc plans/needs. School Library Media Specialist: Jeri Choe DCPIA - Discharge Planning Initial Assessment Updated by [email or web address]: Jeri Choe on 11/08/18 5:15 pm * Is the patient Alert and Oriented? Yes * How many steps to enter\exit or inside your home? 5/0 * PCP Dr. Landen Galeas * Pharmacy [facility] on [address] * Preadmission Environment Home with Family * ADLs Partial Dependent * Partial ADLs (Assistance needed) Ambulation Medication Management * Equipment Cane Walker * List name and contact numbers for known caregivers / representatives who currently or will assist patient after discharge: Breana ALBERTR - [phone] * Verbal permission to speak to the caregivers and representatives has been obtained from the patient. Yes * Community resources currently utilized None * Additional services required to return to the preadmission environment? No * Can the patient safely return to the preadmission environment? Yes * Has this patient been hospitalized within the prior 30 days at any hospital? No Coverage Notice Reviewer: [email or web address] Daisy Choe Notice Issued Date-Time: 11/08/2018 17:11 Notice Type: Medicare Outpatient Observation Notice Notice Delivered To: Patient Relationship to Patient: Self Bid Writer Name: Delivery Method: HAND - Hand Delivered Deyanira Days: Prior Verbal Notification: Recipient Understood Notice: Yes Recipient Signature: Yes Med Rec Note Co-signed by Attending: Coverage Notice Comment: MONTG[place]ERY delivered, explained, signed, given, copy placed in MR Last DP export: 11/08/18 4:13 p Patient Name: JJ FIELD Page [phone] at 1720 All edits/amendments must be made on the electronic document DICTATION DATE: 11/08/181719 RECEIVER STOCKER: SEBASTIEN 11/08/181719 RPT#: [id number] DC DATE: STATUS: ADM IN [facility] [address] [place] [address] END OF REPORT
--- NOTE | 2018-11-08 20:25 | NUR ---
PT RESTING IN BED WATCHING TV. REQUESTED PAIN MEDICINE FOR HEADACHE, ADMINISTERED TYLENOL PER ORDERS. DENIES ANY FURTHER NEEDS AT THIS TIME. BED LOW, CALL LIGHT IN REACH, RAILS UP X 2. WILL CONTINUE TO MONITOR.
[2018-11-09 00:50] VITALS: BP 137/76
[2018-11-09 04:47] VITALS: BP 122/72
--- NOTE | 2018-11-09 05:05 | NUR ---
IV DC'D IN RIGHT AC DUE TO INFILTRATION. RESITED 20G TO RIGHT SHOULDER RUNNING NS @ 200. DENIES ANY FURTHER NEEDS AT THIS TIME.
--- NOTE | 2018-11-09 08:54 | HP ---
PATIENT: JJ FIELD MEDICAL RECORD: [id number] ACCOUNT: [id number] LOCATION:D.MS [id number] : 64 ADMISSION DATE: 11/07/18 PCP: JAVIER PEDRAZA HISTORY AND PHYSICAL EXAMINATION DATE OF ADMISSION: 11/07/2018. CHIEF COMPLAINT: Syncope. HISTORY OF PRESENT ILLNESS: This is a 57-year-old female followed by either Dr. Laughlin or Dr. Mathur at [facility], presented to the Emergency Department after she reportedly had 2 syncopal episodes and 2 falls. She had a hematoma on the left temporal area of her head. The patient was groggy and had an atypical "tremor." In the Emergency Department, CT of her head showed no acute abnormality, no bleed. 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 Her lab work, her CMP was okay. Troponin was normal. ProBNP was normal. TSH was normal. INR was 1.38. CBC showed a normal white blood cell count with mild anemia. Urine drug screen was positive for opiates. Urinalysis was definitely contaminated with over 5 epithelial cells. She was admitted for observation for syncopal episode, hitting her head and on chronic anticoagulation. The patient was recently admitted to [facility] from 10/29/2018 to 10/31/2018 after weakness and more falls. It was noted in those notes that her falls have been chronic, but may be having a little more often now. She had a CT of her head then, which was unremarkable and she was discharged home. PAST MEDICAL HISTORY: Hypertension, COPD, bipolar/depression, history of chronic or recurrent DVTs, GERD, anxiety, chronic back pain. It is reported that she has history of coronary artery disease; however, the patient was admitted into this hospital in December of 2017 and underwent angiogram by Dr. Jensen and it was completely normal. PAST SURGICAL HISTORY: She has had times 2, hysterectomy, cholecystectomy, carpal tunnel release, and a hernia repair. ALLERGIES: REPORTEDLY TO CELEBREX, AMOXICILLIN, ZYRTEC, TORADOL, BACTRIM, AND IMITREX. CURRENT MEDICATIONS: (Depending on which discharge summary you look at, either the one from [place] from 10/31/2018 or the more previous or little further away at [place]) Proventil HFA 2 puffs q.4-6 hours p.r.n. wheeze, Xarelto 20 mg once a day, Lipitor 80 mg once a day, Toprol-XL 100 once a day, valsartan 80 mg twice a day, Elavil 100 mg at bedtime, hydrocodone 10/325 one p.o. b.i.d., Zoloft 100 mg 2 a day, Wellbutrin-SR 150 mg twice a day, Protonix 40 mg once a day, MiraLax 1 scoop daily p.r.n. constipation, and iron sulfate 325 mg once a day. FAMILY HISTORY: Parents had coronary artery disease and cancer. SOCIAL HISTORY: She lives with significant other and a child. HABITS: Former smoker. Denies alcohol or drug use. REVIEW OF SYSTEMS: HISTORY AND PHYSICAL [id number] JJ FIELD GENERAL: No major weight changes. HEENT: No particular sinus or allergy problems. RESPIRATORY: Has COPD. CARDIAC: She had angiogram in 01/29/2018 that was normal. GASTROINTESTINAL: Has reflux, on Protonix. GENITOURINARY: No significant problems there. MUSCULOSKELETAL: She reportedly has chronic back pain and is on [place]. NEUROLOGIC: No seizures. No migraines. PSYCHIATRIC: She has bipolar/depression. PHYSICAL EXAMINATION: VITAL SIGNS: Temperature 97.3, pulse 80, respirations 18, blood pressure 149/67, O2 sat 94%. GENERAL: When I saw her this morning, she was awake and alert, eating breakfast, in no acute distress. SKIN: Warm and dry. She does have a hematoma in the left baptism area. HEENT: Otherwise unremarkable. NECK: Supple. No JVD or bruit. HEART: Regular rate and rhythm without murmur. LUNGS: Clear. ABDOMEN: Soft. EXTREMITIES: No edema. NEUROLOGIC: Grossly intact. No focal motor or sensory deficits are noted. LABORATORY DATA/X-RAY: CT of the head shows no acute problems. No bleeding. CT of the cervical spine shows no acute problems. No fractures. Basic metabolic panel is all normal. Liver functions are normal. Troponin is normal. ProBNP is normal. TSH 1.32. INR 1.38. CBC with a white count of 7400, hemoglobin 10.5, hematocrit 31.7. Urine drug screen positive for opiates. Urinalysis contaminated. ASSESSMENT: 1. Syncopal episode. 2. Contusion to head. 3. On chronic anticoagulation therapy. PLAN: We will monitor, continue her usual home medications. Get carotid Doppler ultrasound, telemetry. Other tests and procedures as warranted. TRANSINT:[id number] Voice Confirmation ID: [id number] DOCUMENT ID: [id number] AAYUSH SANCHEZ MD at 0854 CC: [id number] DICTATION DATE: 11/09/1822 MEAT CARVER: 11/09/18 0049 ADM IN [facility] [address] [id number]
--- NOTE | 2018-11-09 09:21 | MORECARE ---
CASE MANAGEMENT DISCHARGE SUMMARY PATIENT: JJ FIELD UNIT: [id number] ADM DATE: 11/07/18 AGE: 57 : 64 SEX: F ROOM/BED: D.2229 AUTHOR: SANDRINE SHERIFF PHYSICIAN: REFERRING PHYSICIAN: AAYUSH SANCHEZ MD DATE OF SERVICE: 11/09/18 Discharge Plan Patient Name: JJ FIELD Facility: [facility]:[place] : 1960 Planned Disposition: Home Anticipated Discharge Date: Discharge Date: Expected LOS: Initial Reviewer: [email or web address] Initial Review Date: 11/08/2018 Generated: 11/09/18 10:21 am Comments DCP- Discharge Planning Updated by [email or web address]: Jeri Choe on 11/09/18 8:[address] Patient Name: JJ FIELD Encounter No: [id number] : 1960 Primary Insurance: WE[employer] MEDICARE ADV Anticipated DC Date: Planned Disposition: Home External Planned Provider: : DCP follow-up note: Patient and family in agreement with discharge plan. No changes to plan. Declines home health or DME needs. Case management will follow and assist as needed. Jeri Choe DCP- Discharge Planning Updated by [email or web address]: Jeri Choe on 11/08/18 4:[address] Patient Name: JJ FIELD Admission Status: ER Accout number: [id number] Admission Date: 11-07-2018 : 1960 Admission Diagnosis: Attending: AAYUSH SANCHEZ Current LOS: 1 Anticipated DC Date: Planned Disposition: Home Primary Insurance: WELLCARE MEDICARE ADV Discharge Planning Comments: CM met with patient to complete initial dc planning assessment. CM educated patient on the CM role and verbal consent given by patient to complete assessment. Patient lives at home with her adult daughter and her . At discharge patient plans to return and feels this is a safe discharge. CM discussed availability of home health, rehab services, and medical equipment. Patient denied known discharge needs at this time. [place] explained and given, copy placed in MR. CM will continue to follow and will assist as needed with dc plans/needs. Building Construction Engineer: Jeri Choe DCPIA - Discharge Planning Initial Assessment Updated by [email or web address]: Jeri Choe on 11/08/18 5:15 pm * Is the patient Alert and Oriented? Yes * How many steps to enter\exit or inside your home? 5/0 * PCP Dr. Landen Galeas * Pharmacy [facility] on [address] * Preadmission Environment Home with Family * ADLs Partial Dependent * Partial ADLs (Assistance needed) Ambulation Medication Management * Equipment Cane Walker * List name and contact numbers for known caregivers / representatives who currently or will assist patient after discharge: Breana Chris [facility] - [phone] * Verbal permission to speak to the caregivers and representatives has been obtained from the patient. Yes * Community resources currently utilized None * Additional services required to return to the preadmission environment? No * Can the patient safely return to the preadmission environment? Yes * Has this patient been hospitalized within the prior 30 days at any hospital? No Coverage Notice Reviewer: [id number] - Jeri Choe Notice Issued Date-Time: 11/08/2018 17:11 Notice Type: Medicare Outpatient Observation Notice Notice Delivered To: Patient Relationship to Patient: Self Global Program Director Name: Delivery Method: HAND - Hand Delivered Deyanira Days: Prior Verbal Notification: Recipient Understood Notice: Yes Recipient Signature: Yes Med Rec Note Co-signed by Attending: Coverage Notice Comment: [place] delivered, explained, signed, given, copy placed in MR Last DP export: 11/08/18 4:20 p Patient Name: JJ FEILD Page [phone] at 0921 All edits/amendments must be made on the electronic document DICTATION DATE: 11/09/18920 DATA VIRTUALIZATION CONSULTANT: SEBASTIEN 11/09/18920 RPT#: [id number] DC DATE: STATUS: ADM IN [facility] [address] [place] [address] END OF REPORT
[2018-11-09 09:48] VITALS: BP 142/81
[2018-11-09 13:19] VITALS: BP 156/92
--- NOTE | 2018-11-09 17:00 | MORECARE ---
CASE MANAGEMENT DISCHARGE SUMMARY PATIENT: JJ FIELD UNIT: [id number] ADM DATE: 11/07/18 AGE: 57 : 64 SEX: F ROOM/BED: D.2229 AUTHOR: SANDRINE SHERIFF PHYSICIAN: REFERRING PHYSICIAN: AAYUSH SANCHEZ MD DATE OF SERVICE: 11/09/18 Discharge Plan Patient Name: JJ FIELD Facility: [facility]:[place] : 1960 Planned Disposition: Home Anticipated Discharge Date: Discharge Date: Expected LOS: Initial Reviewer: [email or web address] Initial Review Date: 11/08/2018 Generated: 11/09/18 6:00 pm Comments DCP- Discharge Planning Updated by [email or web address]: Cha Mosquera on 11/09/18 3:[address] PATIENT STATED THAT HER DAUGHTER CAN NOT PICK HER UP, SHE DID NOT HAVE ANYMORE TRANSPORTATION. I ATTEMPTED TO CALL THE DAUGHTER X 2 AND SHE DID NOT ANSWER. CM WILL PROVIDE A TAXI TO TAKE HER HOME TONIGHT. THEY WILL PICK HER UP AT 1800 AND TAKE [address] TO [address] I SPOKE WITH RENEE COST 32.00 CHARGED TO CM ACCOUNT, GOT APPROVAL BY TESS BEST RN DCP- Discharge Planning Updated by [email or web address]: Jeri Дмитрий on 11/09/18 8:[address] Patient Name: JJ FIELD Encounter No: [id number] : 1960 Primary Insurance: WELLCARE MEDICARE ADV Anticipated DC Date: Planned Disposition: Home External Planned Provider: : DCP follow-up note: Patient and family in agreement with discharge plan. No changes to plan. Declines home health or DME needs. Case management will follow and assist as needed. Jeri Careyestela DCP- Discharge Planning Updated by [email or web address]: Jeri Careyestela on 11/08/18 4:[address] Patient Name: JJ FIELD Admission Status: ER Accout number: [id number] Admission Date: 11-07-2018 : 1960 Admission Diagnosis: Attending: AAYUSH SANCHEZ Current LOS: 1 Anticipated DC Date: Planned Disposition: Home Primary Insurance: WELL[employer] MEDICARE ADV Discharge Planning Comments: CM met with patient to complete initial dc planning assessment. CM educated patient on the CM role and verbal consent given by patient to complete assessment. Patient lives at home with her adult daughter and her . At discharge patient plans to return and feels this is a safe discharge. CM discussed availability of home health, rehab services, and medical equipment. Patient denied known discharge needs at this time. [place] explained and given, copy placed in MR. CM will continue to follow and will assist as needed with dc plans/needs. Saw Boss: Jeri Choe DCPIA - Discharge Planning Initial Assessment Updated by [email or web address]: Jeri Choe on 11/08/18 5:15 pm * Is the patient Alert and Oriented? Yes * How many steps to enter\exit or inside your home? 5/0 * PCP Dr. Landen Galeas * Pharmacy [facility] * Preadmission Environment Home with Family * ADLs Partial Dependent * Partial ADLs (Assistance needed) Ambulation Medication Management * Equipment Cane Walker * List name and contact numbers for known caregivers / representatives who currently or will assist patient after discharge: Breana Perez [facility] - [phone] * Verbal permission to speak to the caregivers and representatives has been obtained from the patient. Yes * Community resources currently utilized None * Additional services required to return to the preadmission environment? No * Can the patient safely return to the preadmission environment? Yes * Has this patient been hospitalized within the prior 30 days at any hospital? No Coverage Notice Reviewer: [id number] - Jeri Дмитрий Notice Issued Date-Time: 11/08/2018 17:11 Notice Type: Medicare Outpatient Observation Notice Notice Delivered To: Patient Relationship to Patient: Self Vocal Performer Name: Delivery Method: HAND - Hand Delivered Deyanira Days: Prior Verbal Notification: Recipient Understood Notice: Yes Recipient Signature: Yes Med Rec Note Co-signed by Attending: Coverage Notice Comment: [place] delivered, explained, signed, given, copy placed in MR Last DP export: 11/09/18 8:21 a Patient Name: JJ FIELD Page [phone] at 1700 All edits/amendments must be made on the electronic document DICTATION DATE: 11/09/181658 EMAIL CAMPAIGN MANAGER: SEBASTIEN 11/09/181658 RPT#: [id number] DC DATE: STATUS: [facility] [address] [place] [address] END OF REPORT
--- NOTE | 2018-11-09 18:22 | NUR ---
DC HOME AT THIS TIME VOICES UNDERSTANDING OF DC ORDERS. IV DISCONTINUE. NO C/O NOTED OR VOICED. STABLE CONDITION UPON DEPARTURE.
== END 2018-11-09 18:23 | disposition home or self-care (01) ==
LOC: D.ER 17:18 → D.MS 23:13 → OBSVTIME 23:13 → D.MS 11-09 18:23
PROVIDERS: Family Medicine; ADMIT Family Medicine; ATTEND Family Medicine
DX: R55 Syncope and collapse (principal); S00.93XA Contusion of unspecified part of head, initial encounter; W19.XXXA Unspecified fall, initial encounter; Z91.81 History of falling; I10 Essential (primary) hypertension

== ENCOUNTER 2019-02-22 18:20 | Emergency (ER) | payer MEDICARE, MEDICAID ==
[~2019-02-22] VITALS: Ht 152.4 cm; Wt 77.3 kg
[2019-02-22 18:24] VITALS: Ht 152.4 cm; Wt 77.3 kg
[2019-02-22 20:11] VITALS: BP 150/86
== END 2019-02-22 20:12 | disposition home or self-care (01) ==
LOC: D.ER 18:20
DX: M79.671 Pain in right foot (principal)

== ENCOUNTER 2019-03-18 19:09 | Inpatient (IN) | payer MEDICARE, MEDICAID ==
[~2019-03-18] VITALS: Ht 152.4 cm; Wt 77.3 kg
--- NOTE | 2019-03-18 19:28 | NUR ---
PT DENIES LOC, OR HEAD INJURY. PT IS EXHIBITING UNCONTROLLED MOVEMENTS OF ALL EXTREMITIES. PER EMS PT STATES IT MAY BE HER MEDICATION.
--- NOTE | 2019-03-18 20:20 | NUR ---
PT BACK FROM CT. PT RESTING QUIETLY WITH EYES CLOSED. RESPIRATIONS EVEN AND UNLABORED. IV CON'T.
[2019-03-18 20:43] LABS: BASOPHILS 0.3 % (0-2); EOSINOPHILS 1.3 % (0-7); HEMATOCRIT 28.7 % (36.0-48.0); HEMOGLOBIN 9.6 g/dL (12-16); IMMATURE GRANULOCYTES 0.3 % (0-5); MCH 31.8 pg (26.0-34.0); MCHC 33.4 g/dL (31.0-37.0); MONOCYTES 7.8 % (2-11); NEUTROPHILS 78.3 % (40-80); PLATELET COUNT 316 10x3/uL (130-400); RBC 3.02 10x6/uL (4.00-5.40); RDW 13.7 % (11.5-14.5); WBC 6.4 10x3/uL (4.8-10.8)
--- NOTE | 2019-03-18 20:43 | NUR ---
URINE TO LAB.
[2019-03-18 20:50] LABS: APPEARANCE CLOUDY (CLEAR); BILIRUBIN NEGATIVE (NEGATIVE); COLOR YELLOW (YELLOW); GLUCOSE NEGATIVE (NEGATIVE); KETONE NEGATIVE (NEGATIVE); NITRITE POSITIVE (NEGATIVE); PROTEIN NEGATIVE (NEGATIVE); UROBILINOGEN NORMAL (NORMAL)
[2019-03-18 20:52] LABS: BACTERIA MANY /hpf (NEGATIVE); EPITHELIAL CELLS 0-5 /hpf (0-5); HYALINE CAST OCC /lpf (NONE SEEN); RED CELLS - URINE 0-5 /hpf (0-5)
[2019-03-18 20:54] LABS: UDS - AMPHET NEGATIVE QUAL (NEGATIVE); UDS - BARB NEGATIVE QUAL (NEGATIVE); UDS - BENZO NEGATIVE QUAL (NEGATIVE); UDS - COCAINE NEGATIVE QUAL (NEGATIVE); UDS - OPIATE POSITIVE QUAL (NEGATIVE); UDS - PCP NEGATIVE QUAL (NEGATIVE); UDS - THC NEGATIVE QUAL (NEGATIVE)
[2019-03-18 21:10] VITALS: BP 121/62
--- NOTE | 2019-03-18 21:10 | NUR ---
PT CALM AND RESTING WITH EYES CLOSED AT THIS TIME. RESPIRATIONS ARE EVEN AND UNLABORED. NO DISTRESS NOTED. COLOR WNL FOR RACE. VSS. WILL CONTINUE TO MONITOR PATIENT.
[2019-03-18 21:11] LABS: ALBUMIN 3.4 g/dL (3.4-5.0); ALKALINE PHOSPHATASE 76 U/L (46-116); ALT (SGPT) 39 U/L (10-68); BILIRUBIN - TOTAL 0.96 mg/dL (0.2-1.3); CALC OSMOLALITY 283 mosm/kg (275-300); CALCIUM 8.4 mg/dL (8.5-10.1); CARBON DIOXIDE 27.5 mmol/L (21.0-32.0); CHLORIDE - SERUM 106 mmol/L (98-107); CKMB 4.1 U/L (0.0-3.6); CREATINE KINASE 435 UL (21-215); CREATININE - SERUM 1.3 mg/dL (0.6-1.3); GLUCOSE 81 mg/dL (74-106); MAGNESIUM - SERUM 1.7 mg/dL (1.8-2.4); PROTEIN - SERUM 6.4 g/dL (6.4-8.2); SODIUM 142 mmol/L (136-145); UREA NITROGEN 18 mg/dL (7-18); eGFR NON AFRICAN AMERICAN 45 mL/min (90-120)
[2019-03-18 21:13] LABS: TROPONIN-I < 0.017 ng/mL (0.000-0.060)
[2019-03-18 21:14] LABS: POTASSIUM - SERUM 2.8 mmol/L (3.5-5.1)
[2019-03-18 22:18] VITALS: BP 120/62
--- NOTE | 2019-03-18 22:30 | NUR ---
ADMITED FROM ER VIA STRETCHER LR STARTED AT 125/HR SKIN WARM AND DRY PT IS JERKING ALOT AND CO SOME NAUSEA AND WONDERING IF PAIN MEDS WILL BE GIVEN BED IS LOW AND LOCKED SRX2 AND CALL LIGHT WITH PT
[2019-03-18] MEDS ORDERED: BACLOFEN20 M1 PO (22:58)
--- NOTE | 2019-03-18 23:35 | NUR ---
PT CONTINUES TO JERK AND FIDGET STATING SHE NEVER DOES THIS SHE IS ALSO ROLLING HER TONGUE AROUND IN HER MOUTH.INT VS 139/68 95 20 96%
[2019-03-19] VITALS: BP 139/68
[2019-03-19 03:40] VITALS: BP 133/73
--- NOTE | 2019-03-19 03:55 | NUR ---
I have reviewed this patient and I concur with the Shift Assessment completed by the Licensed Practical Nurse today this shift.
[2019-03-19 04:00] VITALS: BP 130/54
[2019-03-19 04:57] LABS: CKMB 2.9 U/L (0.0-3.6); CREATINE KINASE 406 UL (21-215)
[2019-03-19 04:59] LABS: TROPONIN-I < 0.017 ng/mL (0.000-0.060)
[2019-03-19 07:38] VITALS: BP 124/69
[2019-03-19 09:01] LABS: CKMB 2.6 U/L (0.0-3.6); CREATINE KINASE 390 UL (21-215)
--- NOTE | 2019-03-19 09:09 | NUR ---
PER [employer] GONSALVES COMPLETE BED BATH AND LINEN CHANGE WITH HIBICLENS ERNESTO. ALL FALL PRECAUTIONS ARE NOW IN PLACE PATIENT WAS STILL IN STREET CLOTHES. HAIR WASHED AND COMBED.
[2019-03-19 11:24] VITALS: BP 124/65
[2019-03-19 12:30] LABS: BASOPHILS 0.2 % (0-2); EOSINOPHILS 2.8 % (0-7); HEMATOCRIT 29.6 % (36.0-48.0); HEMOGLOBIN 9.6 g/dL (12-16); IMMATURE GRANULOCYTES 0.2 % (0-5); LYMPHOCYTES 21.2 % (15-50); MCH 31.3 pg (26.0-34.0); MCHC 32.4 g/dL (31.0-37.0); MCV 96.4 fL (80.0-100.0); MEAN PLATELET VOLUME 9.8 fL (7.4-10.4); MONOCYTES 9.5 % (2-11); NEUTROPHILS 66.1 % (40-80); PLATELET COUNT 359 10x3/uL (130-400); RBC 3.07 10x6/uL (4.00-5.40); WBC 5.4 10x3/uL (4.8-10.8)
[2019-03-19 12:40] LABS: ALBUMIN 3.2 g/dL (3.4-5.0); ANION GAP 15.6 mmol/L (8-16); BILIRUBIN - TOTAL 0.73 mg/dL (0.2-1.3); CALCIUM 8.5 mg/dL (8.5-10.1); CARBON DIOXIDE 26.3 mmol/L (21.0-32.0); MAGNESIUM - SERUM 1.8 mg/dL (1.8-2.4); POTASSIUM - SERUM 3.9 mmol/L (3.5-5.1)
[2019-03-19 13:46] VITALS: BMI 33.2
[2019-03-19 15:06] VITALS: BP 108/54
[2019-03-19 15:21] LABS: CKMB 3.4 U/L (0.0-3.6); CREATINE KINASE 451 UL (21-215)
[2019-03-19 15:28] LABS: TROPONIN-I < 0.017 ng/mL (0.000-0.060)
--- NOTE | 2019-03-19 16:45 | NUR ---
Rehab Prescreening Consult recieved and the chart has been reviewed. She has [facility] managed Medicare and will require a preauth for the ARU. A PT and an OT eval will be required to submit to the insurance. She does not have a qualifying ARU diagnosis so it is doubtful they will authorize the rehab. Leola Rider RN Clinical Liaison, Rehab
[2019-03-19 17:29] LABS: APTT 37.3 SECONDS (22.8-39.4); INR 1.35 (0.85-1.17); PROTIME 16.1 SECONDS (11.6-15.0)
[2019-03-19 17:30] LABS: D-DIMER-QUANTITATIVE 0.84 ug/mLFEU (0.20-0.54)
--- NOTE | 2019-03-19 18:21 | NUR ---
I have reviewed this patient and I concur with the Shift Assessment completed by the Licensed Practical Nurse today this shift.
--- NOTE | 2019-03-19 20:00 | NUR ---
BED LOW AND LOCKED CALL LIGHT WITH PT LCTA BUT HANDS AND LEGS ARE SWOLLEN I ADJUSTED IV FLUIDS DOWN FOR NOW
[2019-03-20 00:49] VITALS: BP 107/55
[2019-03-20 05:38] VITALS: BP 133/72
[2019-03-20 05:52] LABS: BASOPHILS 0.2 % (0-2); HEMATOCRIT 28.3 % (36.0-48.0); HEMOGLOBIN 9.3 g/dL (12-16); IMMATURE GRANULOCYTES 0.2 % (0-5); LYMPHOCYTES 22.2 % (15-50); MCHC 32.9 g/dL (31.0-37.0); MCV 97.3 fL (80.0-100.0); MEAN PLATELET VOLUME 9.3 fL (7.4-10.4); MONOCYTES 9.1 % (2-11); NEUTROPHILS 66.3 % (40-80); PLATELET COUNT 326 10x3/uL (130-400); RBC 2.91 10x6/uL (4.00-5.40); RDW 14.1 % (11.5-14.5)
--- NOTE | 2019-03-20 05:59 | NUR ---
I have reviewed this patient and I concur with the Shift Assessment completed by the Licensed Practical Nurse today this shift.
[2019-03-20 06:03] LABS: ANION GAP 8.5 mmol/L (8-16); CALCIUM 8.3 mg/dL (8.5-10.1); CARBON DIOXIDE 29.6 mmol/L (21.0-32.0); MAGNESIUM - SERUM 1.7 mg/dL (1.8-2.4); POTASSIUM - SERUM 4.1 mmol/L (3.5-5.1)
--- NOTE | 2019-03-20 07:36 | NUR ---
REPORT RECEIVED. WILL CONTINUE WITH POC. PT CURRENTLY LYING SEMI FOWLERS. CALL LIGHT W/I REACH. PT IS AAO AND UP AD SWAPNA. RR EVEN AND UNLABORED ON RA. LR INFUSING @KVO VIA R.FOR PIV. NO S/S OF DISTRESS NOTED. PT DEMANDING PAIN MEDICATION UPON ENTERING THE ROOM WHILE ALSO SAYING SHE JUST RECEIVED SOME. WILL CTM.
[2019-03-20 07:59] VITALS: BP 132/73
[2019-03-20 11:45] VITALS: BP 119/73
--- NOTE | 2019-03-20 11:50 | NUR ---
Pt has scabbed areas on both hands. She states they are from burning her hands on the stove. There is one on the right little finger, in the web of her fingers, on the tips of fingers on left hand and scratched areas on the outside of her hand (left). Both hands are edematous.
--- NOTE | 2019-03-20 15:03 | NUR ---
I have reviewed this patient and I concur with the Shift Assessment completed by the Licensed Practical Nurse today this shift.
[2019-03-20 15:25] VITALS: BP 122/69
--- NOTE | 2019-03-20 19:10 | NUR ---
REPORT RECEIVED, WILL CONTINUE POC. PATIENT IS AAOX4, LYING IN SEMI-FOWLERS POSITION. NO S/S OF DISTRESS OBSERVED, RR EVEN AND UNLABORED ON ROOM AIR. PATIENT DENIES NEEDS AT THIS TIME. CL IN REACH, BED LOCKED AND LOWERED. WILL CTM.
--- NOTE | 2019-03-20 19:32 | NUR ---
OT NOTE: PT COMPLETED BED MOB TASK WITH SBA. PT COMPLETED ADL MOB WITH CGA/SBA. PT COMPLETED FACE WASH WITH SETUP. THANK YOU, LISE PHAN
[2019-03-20 20:30] VITALS: BP 150/82
--- NOTE | 2019-03-20 22:32 | NUR ---
PATIENT C/O PAIN 01/09, MORPHINE ADMINISTERED PER ORDERS.
--- NOTE | 2019-03-20 23:06 | NUR ---
ORTHOSTATIC VS: LYING T 98.7 BP 155/79 HR 74 RR 18 O2 90% ON ROOM AIR SITTING BP 158/85 HR 84 RR 20 O2 92% STANDING BP 146/83 HR 77 RR 20 O2 89%
[2019-03-21 00:31] VITALS: BP 155/79
--- NOTE | 2019-03-21 00:57 | NUR ---
ASSISTED PATIENT TO BATHROOM AND BACK TO BED. CL IN REACH, BED LOCKED AND LOWERED.
--- NOTE | 2019-03-21 03:15 | NUR ---
I have reviewed this patient and I concur with the Shift Assessment completed by the Licensed Practical Nurse today this shift.
--- NOTE | 2019-03-21 03:56 | NUR ---
PATIENT MEDICATED FOR PAIN AT THIS TIME.
[2019-03-21 04:31] VITALS: BP 132/74
[2019-03-21 05:15] LABS: BASOPHILS 0.4 % (0-2); EOSINOPHILS 3.7 % (0-7); HEMATOCRIT 29.2 % (36.0-48.0); HEMOGLOBIN 9.3 g/dL (12-16); IMMATURE GRANULOCYTES 0.2 % (0-5); LYMPHOCYTES 28.7 % (15-50); MCH 31.1 pg (26.0-34.0); MCHC 31.8 g/dL (31.0-37.0); MCV 97.7 fL (80.0-100.0); MEAN PLATELET VOLUME 9.5 fL (7.4-10.4); MONOCYTES 9.4 % (2-11); NEUTROPHILS 57.6 % (40-80); PLATELET COUNT 338 10x3/uL (130-400); RBC 2.99 10x6/uL (4.00-5.40); RDW 14.2 % (11.5-14.5); WBC 5.1 10x3/uL (4.8-10.8)
[2019-03-21 05:22] LABS: CALC OSMOLALITY 280 mosm/kg (275-300); CALCIUM 8.6 mg/dL (8.5-10.1); CARBON DIOXIDE 32.2 mmol/L (21.0-32.0); CHLORIDE - SERUM 105 mmol/L (98-107); CREATININE - SERUM 0.8 mg/dL (0.6-1.3); GLUCOSE 93 mg/dL (74-106); MAGNESIUM - SERUM 1.6 mg/dL (1.8-2.4); POTASSIUM - SERUM 4.1 mmol/L (3.5-5.1); SODIUM 141 mmol/L (136-145); UREA NITROGEN 12 mg/dL (7-18); eGFR NON AFRICAN AMERICAN 78 mL/min (90-120)
--- NOTE | 2019-03-21 07:38 | NUR ---
PT O2 SAT AT 87% ON ROOM AIR. PLACED PT ON O2 AT 2L VIA NC. O2 SAT NOW 93%. WILL CONTINUE TO MONITOR.
[2019-03-21 09:36] VITALS: BP 130/83
[2019-03-21 12:22] VITALS: BP 130/77
--- NOTE | 2019-03-21 13:36 | NUR ---
I have reviewed this patient and I concur with the Shift Assessment completed by the Licensed Practical Nurse today this shift.
--- NOTE | 2019-03-21 14:37 | NUR ---
OT NOTE: PT PERFORMED WELL TODAY. BED MOB WITH SPV; ABLE TO AMB WTIH MIN ASSIST TO BATHROOM; PERFORMED TOILETING AND HYGIENE INDEP; ABLE TO LILIAN UNDERWEAR AND SOCKS WITH SET UP WHILE SITTING ON TOILET. AMB APPROX 12 FT FROM BATHROOM TO CHAIR WITH GORING CUTTER. PT ABLE TO BRUSH HAIR FOR EXT TIME WITH SET UP; PT AMB WITH OT AND PT X 140'. PTS ONLY COMPLAINT WAS MILD SOB. 02 AT 2L. NO C/O DIZZINESS. UP IN CHAIR FOR GREATER THAN 3 HRS. JOSEPH DONALDSON, OTR/L
--- NOTE | 2019-03-21 15:40 | NUR ---
OT NOTE: PT EXHIBITED INCREASED I WITH FUNCTIONAL ACTIVITIES. PT COMPLETED ADL MOB WITH SBA/CGA. PT COMPLETED SIT TO STAND WITH SBA. PT COMPLETED TOILETING TASKS WITH SBA. THANK YOU, LISE PHAN
[2019-03-21 16:00] VITALS: BP 138/75
--- NOTE | 2019-03-21 16:23 | MORECARE ---
CASE MANAGEMENT DISCHARGE SUMMARY PATIENT: JJ FIELD UNIT: [id number] ADM DATE: 03/20/19 AGE: 58 : 64 SEX: F ROOM/BED: D.2102 AUTHOR: JAZIEL,DOC PHYSICIAN: REFERRING PHYSICIAN: ELIAN MÉNDEZ MD DATE OF SERVICE: 03/21/19 Discharge Plan Patient Name: JJ FIELD Facility: [facility]:[place] : 1960 Planned Disposition: Inpatient Rehab Anticipated Discharge Date: 03/22/19 Discharge Date: Expected LOS: 2 Initial Reviewer: [email or web address] Initial Review Date: 03/18/2019 Generated: 03/21/19 5:22 pm DCPIA - Discharge Planning Initial Assessment Updated by [email or web address]: Jordan Pizarro on 03/21/19 4:20 pm * Is the patient Alert and Oriented? Yes * How many steps to enter\exit or inside your home? * PCP DR. MICHAEL PEDRAZA * Pharmacy [facility] [address] * Preadmission Environment Home with Family * ADLs Independent * Equipment Cane Walker * Other Equipment NO MEDICAL EQUIPMENT PROVIDER PREFERENCE * List name and contact numbers for known caregivers / representatives who currently or will assist patient after discharge: STEFAN SHAW, DTR, * Verbal permission to speak to the caregivers and representatives has been obtained from the patient. N/A * Community resources currently utilized None * Please name any agencies selected above. NONE * Additional services required to return to the preadmission environment? No * Can the patient safely return to the preadmission environment? Yes * Has this patient been hospitalized within the prior 30 days at any hospital? No External Providers External Provider: OTHER-OTHER Next Contact Date: 03/20/2019 Service Request Date: Service Type: Resolution: Reviewer: Comments: Coverage Notice Reviewer: [email or web address] Daisy Nur [place] Notice Issued Date-Time: 03/19/2019 15:44 Notice Type: Medicare Outpatient Observation Notice Notice Delivered To: Patient Relationship to Patient: Self Employee Relations Director Name: Delivery Method: HAND - Hand Delivered Deynaira Days: Prior Verbal Notification: Recipient Understood Notice: Yes Recipient Signature: Yes Med Rec Note Co-signed by Attending: Coverage Notice Comment: Patient Name: JJ FIELD Page [phone] at 1623 All edits/amendments must be made on the electronic document DICTATION DATE: 03/21/191621 SUPERVISOR NEWSPAPER DELIVERIES: SEBASTIEN 03/21/191621 RPT#: [id number] DC DATE: STATUS: ADM IN [facility] [address] [place] [address] END OF REPORT
--- NOTE | 2019-03-21 16:31 | MORECARE ---
CASE MANAGEMENT DISCHARGE SUMMARY PATIENT: JJ FIELD UNIT: [id number] ADM DATE: 03/20/19 AGE: 58 : 64 SEX: F ROOM/BED: D.8749 AUTHOR: JAZIEL,DOC PHYSICIAN: REFERRING PHYSICIAN: ELIAN MÉNDEZ MD DATE OF SERVICE: 03/21/19 Discharge Plan Patient Name: JJ FIELD Facility: [facility]:[place] : 1960 Planned Disposition: Inpatient Rehab Anticipated Discharge Date: 03/22/19 Discharge Date: Expected LOS: 2 Initial Reviewer: [email or web address] Initial Review Date: 03/18/2019 Generated: 03/21/19 5:30 pm Comments DCP- Discharge Planning Updated by [id number]: Jordan Pizarro on 03/21/19 3:[address] Patient Name: JJ FIELD Admission Status: ER Accout number: [id number] Admission Date: 03-20-2019 : 1960 Admission Diagnosis: Attending: ELIAN MÉNDEZ Current LOS: 1 Anticipated DC Date: 03-22-2019 Planned Disposition: Inpatient Rehab Primary Insurance: [facility] MEDICARE SOLUTIONS Discharge Planning Comments: CM RECEIVED ORDER FOR INPATIENT REHAB PRESCREENING, MET WITH PT IN ROOM TO DISCUSS DISCHARGE PLANNING AND NEEDS. PT REPORTS LIVING AT HOME INDEPENDENTY AND ALONE. PT REPORTS HER DAUGHTER IN LAW WILL BE STAYING WITH HER WHEN SHE GOES HOME. PT HAS CANE AND WALKER WITH NO MEDICAL EQUIPMENT PROVIDER PREFERENCE. PT HAS NO OUTSIDE SERVICES ASSISTING IN THE HOME. CM DISCUSSED AVAILABILITY OF HOME HEALTH, REHAB SERVICES AND MEDICAL EQUIPMENT. PT WOULD LIKE TO HAVE REHAB AT [facility]. IF DECLINED, PT WILL NOT CONSIDER GOING TO A [facility] FACILITY. CM REVIEWED CHART AND DOCTORS NOTES INDICATING PT IS NOT FUNCTIONING AT A HIGH ENOUGH LEVEL TO GO HOME SAFELY. PT STATES SHE IS UP INDEPENDENTLY IN ROOM AND CAN WALK HOUSEHOLD DISTANCES WITHOUT ASSISTANCE. CM EXPLAINED THAT PT WILL NEED TO DEMONSTRATE THIS TO NURSING, THE DOCTOR AND PHYSICAL THERAPY. PT STATES SHE WILL. PT REPORTS REPORTS HER DAUGHTER WILL PICK HER UP FOR DISCHARGE HOME. CHOICE FOR [facility] SIGNED. PT WOULD LIKE INPATIENT REHAB AT [facility]. IF DECLINED, PT WILL NOT GO TO [facility] AND WILL GO HOME WITH [employer], PT'S DAUGHTER IN LAW TO MOVE IN SOMETIME AFTER PT GOES HOME FROM HOSPITAL. CM WAITING INPATIENT PRESCREENING RESULTS AND INSURANCE DETERMINATION FOR INPATIENT REHAB SERVICES. Senior Engineering Specialist: Jordan Pizarro DCPIA - Discharge Planning Initial Assessment Updated by [email or web address]: Jordan Pizarro on 03/21/19 4:20 pm * Is the patient Alert and Oriented? Yes * How many steps to enter\exit or inside your home? * PCP DR. MICHAEL PEDRAZA * Pharmacy [facility] [address] * Preadmission Environment Home with Family * ADLs Independent * Equipment Cane Walker * Other Equipment NO MEDICAL EQUIPMENT PROVIDER PREFERENCE * List name and contact numbers for known caregivers / representatives who currently or will assist patient after discharge: STEFAN SHAW, DTR, * Verbal permission to speak to the caregivers and representatives has been obtained from the patient. N/A * Community resources currently utilized None * Please name any agencies selected above. NONE * Additional services required to return to the preadmission environment? No * Can the patient safely return to the preadmission environment? Yes * Has this patient been hospitalized within the prior 30 days at any hospital? No Coverage Notice Reviewer: [id number] - Liudmila Kilgore Notice Issued Date-Time: 03/19/2019 15:44 Notice Type: Medicare Outpatient Observation Notice Notice Delivered To: Patient Relationship to Patient: Self Germination Worker Name: Delivery Method: HAND - Hand Delivered Deyanira Days: Prior Verbal Notification: Recipient Understood Notice: Yes Recipient Signature: Yes Med Rec Note Co-signed by Attending: Coverage Notice Comment: Reviewer: [id number] - Jordan Pizarro Notice Issued Date-Time: 03/21/2019 11:50 Notice Type: Patient Choice Letter Notice Delivered To: Patient Relationship to Patient: Germination Worker Name: Delivery Method: HAND - Hand Delivered Deyanira Days: Prior Verbal Notification: Recipient Understood Notice: Yes Recipient Signature: Yes Med Rec Note Co-signed by Attending: Coverage Notice Comment: [employer] Last DP export: 03/21/19 3:23 Patient Name: JJ FIELD Page [id number] Electronically Signed by [facility] CITYJuhi on 03/21/19 at 1631 All edits/amendments must be made on the electronic document DICTATION DATE: 03/21/19 1630 PRESCRIPTIONIST: SEBASTIEN 03/21/19 1630 RPT#: [id number] DC DATE: STATUS: ADM IN [facility] [address] [place] [address] END OF REPORT
--- NOTE | 2019-03-21 19:10 | NUR ---
BEDSIDE REPORT RECEIVED FROM DAY SHIFT, PT CARE ASSUMED. INTRODUCED SELF AND WROTE NAME ON BOARD. PT SITTING UP IN BED, WATCHING TV, AAOX4. DENIES ANY NEEDS AT THIS TIME. BED IN LOWEST POSITION, SR X2, CALL LIGHT WITHIN REACH. WILL CONTINUE TO MONITOR.
--- NOTE | 2019-03-21 19:15 | NUR ---
PT C/O THORACIC PAIN OF 9, ON A SCALE OF 0-10.
[2019-03-21 20:21] VITALS: BP 142/88
[2019-03-22 00:13] VITALS: BP 134/75
[2019-03-22 04:45] VITALS: BP 121/60
[2019-03-22 05:49] LABS: BASOPHILS 0.2 % (0-2); EOSINOPHILS 3.7 % (0-7); HEMATOCRIT 32.6 % (36.0-48.0); HEMOGLOBIN 10.5 g/dL (12-16); IMMATURE GRANULOCYTES 0.2 % (0-5); LYMPHOCYTES 19.3 % (15-50); MCH 31.5 pg (26.0-34.0); MCHC 32.2 g/dL (31.0-37.0); MCV 97.9 fL (80.0-100.0); MEAN PLATELET VOLUME 9.5 fL (7.4-10.4); MONOCYTES 10.3 % (2-11); NEUTROPHILS 66.3 % (40-80); PLATELET COUNT 335 10x3/uL (130-400); RBC 3.33 10x6/uL (4.00-5.40); RDW 13.8 % (11.5-14.5); WBC 6.2 10x3/uL (4.8-10.8)
[2019-03-22 06:16] LABS: ANION GAP 8.6 mmol/L (8-16); CARBON DIOXIDE 33.7 mmol/L (21.0-32.0); CREATININE - SERUM 0.9 mg/dL (0.6-1.3); MAGNESIUM - SERUM 1.9 mg/dL (1.8-2.4); POTASSIUM - SERUM 4.3 mmol/L (3.5-5.1)
--- NOTE | 2019-03-22 08:13 | NUR ---
PATIENT SITTING ON THE SIDE OF THE BED WITH NO S/S OF DISTRESS. CALL LIGHT IS IN REACH AND BED IS IN LOW POSITION. OXYGEN IS ON PATIENT AND NOTED TO BE AT 2LPM. IV TO THE RIGHT FOREARN AND IS INFUSING LACTATED RINGERS. DRESSING IS CLEAN DRY AND INTACT. PATIENT DENIES ANY ADDITIONAL NEEDS AND OR PAIN AT THIS TIME
[2019-03-22 09:36] VITALS: BP 129/76
--- NOTE | 2019-03-22 12:50 | NUR ---
Nutrition Follow-up: Pt reports eating well. Ate ~75% of breakfast this AM. No complaints. Diet: Cardiac, Dental Soft PO intake: 68% avg x 7 meals No new wt Last BM: 03/21 per pt Labs reviewed Meds reviewed -Continue current diet as tolerated. -Offer nutrition supplement if PO intake <50%. -RD following.
[2019-03-22 13:17] VITALS: BP 143/75
[2019-03-22 14:07] LABS: CKMB 0.8 U/L (0.0-3.6); CREATINE KINASE 155 UL (21-215)
[2019-03-22 14:08] LABS: TROPONIN-I < 0.017 ng/mL (0.000-0.060)
--- NOTE | 2019-03-22 14:37 | NUR ---
OT NOTE: PERFORMED BED MOB WITH SBA; AMB TO BATHROOM WITH MIN/CGA ASSIST; AMB BACK TO CHAIR WITH MIN/CGA IWTH 02 AT 2L. SIMPLE GROOMING AND SINK HYGIENE WITH CGA. UE AROM EXS..PT BECOMES QUICKLY SOB BUT SATS REMAINED ABOVE 90% WITH 02. JOSEPH DONALDSON, OTR/L
--- NOTE | 2019-03-22 14:40 | NUR ---
OT NOTE: PT COMPLETED SIT TO STAND AND ADL MOB WITH RW WITH CGA. PT COMPLETED TOILETING TASKS WITH SBA/CGA. THANK YOU, LISE PHAN
[2019-03-22 19:00] VITALS: BP 143/77
--- NOTE | 2019-03-22 19:10 | NUR ---
REPORT RECEIVED, WILL CONTINUE POC. PATIENT IS AAOX4, UP WITH ASSIST. NO S/S OF DISTRESS OBSERVED, RR EVEN AND UNLABORED ON 3L O2 VIA NC. PT HAS PIV TO RT FA WITH LR INFUSING @125ML/HR, PATENT, DRSG C/D/I. PATIENT DENIES NEEDS AT THIS TIME. CL IN REACH BED LOCKED AND LOWERED, SAMINA ALARM ON. WILL CTM.
[2019-03-22 19:56] LABS: CKMB 0.2 U/L (0.0-3.6); CREATINE KINASE 121 UL (21-215)
[2019-03-22 19:58] LABS: TROPONIN-I < 0.017 ng/mL (0.000-0.060)
--- NOTE | 2019-03-22 20:00 | NUR ---
ASSISTED PT TO BATHROOM THEN BACK TO BED.
--- NOTE | 2019-03-22 23:27 | NUR ---
PT C/O PAIN, MORPHINE ADMINISTERED PER ORDERS.
[2019-03-23] VITALS: BP 150/75
[2019-03-23 04:00] VITALS: BP 151/95
[2019-03-23 04:17] LABS: BASOPHILS 0.5 % (0-2); EOSINOPHILS 5.4 % (0-7); HEMATOCRIT 30.9 % (36.0-48.0); HEMOGLOBIN 10.3 g/dL (12-16); IMMATURE GRANULOCYTES 0.2 % (0-5); LYMPHOCYTES 16.3 % (15-50); MCH 32.4 pg (26.0-34.0); MCHC 33.3 g/dL (31.0-37.0); MCV 97.2 fL (80.0-100.0); MEAN PLATELET VOLUME 10.4 fL (7.4-10.4); MONOCYTES 11.8 % (2-11); NEUTROPHILS 65.8 % (40-80); RBC 3.18 10x6/uL (4.00-5.40); RDW 14.1 % (11.5-14.5)
[2019-03-23 04:21] LABS: PLATELET COUNT 408 10x3/uL (130-400); WBC 4.4 10x3/uL (4.8-10.8)
--- NOTE | 2019-03-23 04:21 | NUR ---
PT C/O PAIN. MORPHINE ADMINISTERED PER ORDERS.
[2019-03-23 04:35] LABS: CALC OSMOLALITY 275 mosm/kg (275-300); CALCIUM 8.8 mg/dL (8.5-10.1); CARBON DIOXIDE 31.5 mmol/L (21.0-32.0); CHLORIDE - SERUM 103 mmol/L (98-107); CKMB 0.1 U/L (0.0-3.6); CREATINE KINASE 121 UL (21-215); CREATININE - SERUM 0.9 mg/dL (0.6-1.3); GLUCOSE 93 mg/dL (74-106); MAGNESIUM - SERUM 1.9 mg/dL (1.8-2.4); PHOSPHOROUS 4.7 mg/dL (2.5-4.9); POTASSIUM - SERUM 4.8 mmol/L (3.5-5.1); SODIUM 137 mmol/L (136-145); UREA NITROGEN 17 mg/dL (7-18); eGFR NON AFRICAN AMERICAN 69 mL/min (90-120)
[2019-03-23 04:36] LABS: TROPONIN-I < 0.017 ng/mL (0.000-0.060)
--- NOTE | 2019-03-23 04:55 | NUR ---
I have reviewed this patient and I concur with the Shift Assessment completed by the Licensed Practical Nurse today this shift.
[2019-03-23 09:51] VITALS: BP 140/76
--- NOTE | 2019-03-23 12:34 | MORECARE ---
CASE MANAGEMENT DISCHARGE SUMMARY PATIENT: JJ FIELD UNIT: [id number] ADM DATE: 03/20/19 AGE: 58 : 64 SEX: F ROOM/BED: D.2102 AUTHOR: JAZIEL,DOC PHYSICIAN: REFERRING PHYSICIAN: ELIAN MÉNDEZ MD DATE OF SERVICE: 03/23/19 Discharge Plan Patient Name: JJ FIELD Facility: [facility]:[place] : 1960 Planned Disposition: Inpatient Rehab Anticipated Discharge Date: 03/22/19 Discharge Date: Expected LOS: 2 Initial Reviewer: [id number] Initial Review Date: 03/18/2019 Generated: 03/23/19 1:34 pm Comments DCP- Discharge Planning Updated by [email or web address]: Jordan Pizarro on 03/23/19 11:[address] Patient Name: JJ FIELD Admission Status: ER Accout number: [id number] Admission Date: 03-20-2019 : 1960 Admission Diagnosis:HYPOKALEMIA Attending: ELIAN MÉNDEZ Current LOS: 3 Anticipated DC Date: 03-22-2019 Planned Disposition: Inpatient Rehab Primary Insurance: [facility] MEDICARE SOLUTIONS PLANNED EXTERNAL PROVIDER: [facility] INPATIENT REHAB Discharge Planning Comments: CM RECEIVED DENIAL FOR INPATIENT REHAB FROM [facility]. THIS WAS DISCUSSED IN INTERDISCIPLINARY TEAM MEETING. CM OBTAINED DR. SPAULDING'S CELL NUMBER FOR PEER TO PEER. CM CALLED LAYLA WITH [employer], , PROVIDED DR. SPAULDING'S NUMBER FOR PEER TO PEER. LAYLA ADVISED HER REPAIRER MAINTENANCE BUILDING WILL CALL DR. SPAULDING TODAY FOR PEER TO PEER. CM WAITING PEER TO PEER COMPLETION AND RECONSIDERATION OF INPATIENT REHAB DENIAL FROM [facility] MEDICARE SOLUTIONS. Telecommunications Line Installer: Jordan Pizarro DCP- Discharge Planning Updated by [id number]: Jordan Pizarro on 03/21/19 3:[address] Patient Name: JJ FIELD Admission Status: ER Accout number: [id number] Admission Date: 03-20-2019 : 1960 Admission Diagnosis: Attending: ELIAN MÉNDEZ Current LOS: 1 Anticipated DC Date: 03-22-2019 Planned Disposition: Inpatient Rehab Primary Insurance: [facility] MEDICARE SOLUTIONS Discharge Planning Comments: CM RECEIVED ORDER FOR INPATIENT REHAB PRESCREENING, MET WITH PT IN ROOM TO DISCUSS DISCHARGE PLANNING AND NEEDS. PT REPORTS LIVING AT HOME INDEPENDENTY AND ALONE. PT REPORTS HER DAUGHTER IN LAW WILL BE STAYING WITH HER WHEN SHE GOES HOME. PT HAS CANE AND WALKER WITH NO MEDICAL EQUIPMENT PROVIDER PREFERENCE. PT HAS NO OUTSIDE SERVICES ASSISTING IN THE HOME. CM DISCUSSED AVAILABILITY OF HOME HEALTH, REHAB SERVICES AND MEDICAL EQUIPMENT. PT WOULD LIKE TO HAVE REHAB AT [facility]. IF DECLINED, PT WILL NOT CONSIDER GOING TO A [facility] FACILITY. CM REVIEWED CHART AND DOCTORS NOTES INDICATING PT IS NOT FUNCTIONING AT A HIGH ENOUGH LEVEL TO GO HOME SAFELY. PT STATES SHE IS UP INDEPENDENTLY IN ROOM AND CAN WALK HOUSEHOLD DISTANCES WITHOUT ASSISTANCE. CM EXPLAINED THAT PT WILL NEED TO DEMONSTRATE THIS TO NURSING, THE DOCTOR AND PHYSICAL THERAPY. PT STATES SHE WILL. PT REPORTS REPORTS HER DAUGHTER WILL PICK HER UP FOR DISCHARGE HOME. CHOICE FOR [facility] SIGNED. PT WOULD LIKE INPATIENT REHAB AT [place]. IF DECLINED, PT WILL NOT GO TO [facility] AND WILL GO HOME WITH [facility], PT'S DAUGHTER IN LAW TO MOVE IN SOMETIME AFTER PT GOES HOME FROM HOSPITAL. CM WAITING INPATIENT PRESCREENING RESULTS AND INSURANCE DETERMINATION FOR INPATIENT REHAB SERVICES. Telecommunications Line Installer: Jordan Pizarro [facility] - Discharge Planning Initial Assessment Updated by [id number]: Jordan Pizarro on 03/21/19 4:20 pm * Is the patient Alert and Oriented? Yes * How many steps to enter\exit or inside your home? * PCP DR. MICHAEL PEDRAZA * Pharmacy [facility] [address] * Preadmission Environment Home with Family * ADLs Independent * Equipment Cane Walker * Other Equipment NO MEDICAL EQUIPMENT PROVIDER PREFERENCE * List name and contact numbers for known caregivers / representatives who currently or will assist patient after discharge: STEFAN SHAW, MARIBEL, * Verbal permission to speak to the caregivers and representatives has been obtained from the patient. N/A * Community resources currently utilized None * Please name any agencies selected above. NONE * Additional services required to return to the preadmission environment? No * Can the patient safely return to the preadmission environment? Yes * Has this patient been hospitalized within the prior 30 days at any hospital? No Coverage Notice Reviewer: [id number] [facility] Notice Issued Date-Time: 03/19/2019 15:44 Notice Type: Medicare Outpatient Observation Notice Notice Delivered To: Patient Relationship to Patient: Self Fountain Dispenser Name: Delivery Method: HAND - Hand Delivered Deyanira Days: Prior Verbal Notification: Recipient Understood Notice: Yes Recipient Signature: Yes Med Rec Note Co-signed by Attending: Coverage Notice Comment: Reviewer: [id number] Daisy Pizarro Notice Issued Date-Time: 03/21/2019 11:50 Notice Type: Patient Choice Letter Notice Delivered To: Patient Relationship to Patient: Fountain Dispenser Name: Delivery Method: HAND - Hand Delivered Deyanira Days: Prior Verbal Notification: Recipient Understood Notice: Yes Recipient Signature: Yes Med Rec Note Co-signed by Attending: Coverage Notice Comment: [facility] Last DP export: 03/21/19 3:31 Patient Name: JJ FIELD Page [id number] at 1234 All edits/amendments must be made on the electronic document DICTATION DATE: 03/23/19 1234 TECHNICAL WRITER: SEBASTIEN 03/23/19 1234 RPT#: [id number] DC DATE: STATUS: ADM IN [facility] [address] [place] [address] END OF REPORT
--- NOTE | 2019-03-23 13:11 | NUR ---
OT NOTE: PT DOING WELL TODAY.. EXTENSIVE ADL TRAINING PERFORMED TODAY. BED MOB WITH SPV; AMB TO BATHROOM WITH SOFTWOOD FALLER; TOILETING WITH SBA INCLUDING HYGIENE AND CLOTHING MGMT; AMB TO SINK TO PERFORM SINK HYGIENE WITH CGA; ABLE TO SIT IN CHAIR TO PERFORM BATHING. REQUIRED ASSIST WITH BACK AND CGA TO CLEAN PERINEAL AREA. ABLE TO LILIAN SOCKS AND UNDERWEAR WITH EXT TIME AND REST BREAKS DUE TO SOB..PT VERY SOB WITH ALL ACTIVITIES WITH 02 AT 2L..BACK TO BED WITH CGA; REPOSITIONED SELF INDEPENDENTLY. JOSEPH DONALDSON, OTR/L
[2019-03-23 13:19] VITALS: BP 136/76
--- NOTE | 2019-03-23 16:36 | NUR ---
Recieved a call from Anny at [facility] the denial for acute rehab has been upheld even after the peer to peer was completed. Further clinicals can be faxed to [phone]. Information given to the CM Daphne Rider RN Clinical Liaison, Rehab
[2019-03-23 18:06] VITALS: BP 135/70
--- NOTE | 2019-03-23 18:26 | NUR ---
I HAVE REVIEWED THIS PATIENT AND I CONCUR WITH THE SHIFT ASSESSMENT COMPLETED BY THE STATION SUPERVISOR THIS SHIFT TODAY
--- NOTE | 2019-03-23 19:10 | NUR ---
BEDSIDE REPORT RECEIVED FROM DAY SHIFT, PT CARE ASSUMED. WROTE NAME ON BOARD. PT SITTING UP IN BED, VISITING WITH FAMILY, AAOX4. DENIES ANY NEEDS AT THIS TIME. BED IN LOWEST POSITION, SR X2, CALL LIGHT WITHIN REACH. WILL CONTINUE TO MONITOR.
[2019-03-23 20:00] VITALS: BP 151/79
[2019-03-24] VITALS (7 sets, daily range): BP systolic 128–170; BP diastolic 74–91
--- NOTE | 2019-03-24 04:04 | NUR ---
I have reviewed this patient and I concur with the Shift Assessment completed by the Licensed Practical Nurse today this shift.
[2019-03-24 05:26] LABS: BASOPHILS 0.5 % (0-2); EOSINOPHILS 3.7 % (0-7); HEMATOCRIT 34.7 % (36.0-48.0); HEMOGLOBIN 11.1 g/dL (12-16); IMMATURE GRANULOCYTES 0.2 % (0-5); LYMPHOCYTES 24.8 % (15-50); MCH 31.4 pg (26.0-34.0); MCV 98.3 fL (80.0-100.0); MONOCYTES 10.5 % (2-11); NEUTROPHILS 60.3 % (40-80); PLATELET COUNT 378 10x3/uL (130-400); RBC 3.53 10x6/uL (4.00-5.40); RDW 13.5 % (11.5-14.5)
[2019-03-24 05:40] LABS: CALC OSMOLALITY 281 mosm/kg (275-300); CALCIUM 9.2 mg/dL (8.5-10.1); CARBON DIOXIDE 28.4 mmol/L (21.0-32.0); CHLORIDE - SERUM 102 mmol/L (98-107); CREATININE - SERUM 0.8 mg/dL (0.6-1.3); GLUCOSE 97 mg/dL (74-106); MAGNESIUM - SERUM 2.1 mg/dL (1.8-2.4); PHOSPHOROUS 4.2 mg/dL (2.5-4.9); POTASSIUM - SERUM 4.1 mmol/L (3.5-5.1); SODIUM 140 mmol/L (136-145); UREA NITROGEN 21 mg/dL (7-18); eGFR NON AFRICAN AMERICAN 78 mL/min (90-120)
--- NOTE | 2019-03-24 07:30 | NUR ---
PT AWAKE AND ORIENTED, WOKE EASILY I APPROACHED. NO COMPLAINTS/CONCERNS OR QUESTIONS AT THIS TIME. CL IN REACH, SRX2.
--- NOTE | 2019-03-24 14:24 | NUR ---
PT HAS BEEN RESTING PEACFULLY, NO COMPLAINTS OR CONCERNS STATED AT ANY POINT. HAS REQUESTED MEDS FOR "CHEST" (THORASIC) PAIN ONCE. ALL QUESTIONS ANSWERED. CL IN REACH, SRX2.
--- NOTE | 2019-03-24 17:30 | NUR ---
I have reviewed this patient and I concur with the Shift Assessment completed by the Licensed Practical Nurse today this shift.
--- NOTE | 2019-03-24 18:35 | NUR ---
PT HAS BEEN AWAKE AND ORIENTED, C/O PAIN AND IS WATCHING THE CLOCK RELIGIOUSLY FOR HER PAIN MEDICATION Q4. STATES SHE IS EXCITED TO GO HOME TUESDAY. CL IN REACH, SRX2
--- NOTE | 2019-03-24 19:18 | NUR ---
EVENING ROUNDS COMPLETE. PT LAYING IN BED, FAMILY AT BEDSIDE. AAOX4, NO S/S OF DISTRESS. PT REQUEST PRN PAIN MEDS AT THIS TIME. TEACHING ON WHEN PRN IS AVAILABLE TO BE GIVEN, PT UNDERSTOOD. CL IN REACH, BED IN LOWEST POSITION.
[2019-03-25 04:52] VITALS: BP 140/73
--- NOTE | 2019-03-25 07:33 | NUR ---
PT ALERT AND ORIENTED, ASKING WHEN NEXT DOSE OF PAIN MEDICATIONS IS AVALIABLE. NO OTHER COMPLAINTS/CONCERNS, AL QUESTIONS ANSWERED TO THE BEST OF MY ABILITY. CL IN REACH, SRX2, NO FAMILY PRESENT THIS AM.
[2019-03-25 07:58] VITALS: BP 142/83
[2019-03-25 10:22] LABS: BASOPHILS 0.4 % (0-2); EOSINOPHILS 2.6 % (0-7); HEMATOCRIT 32.4 % (36.0-48.0); HEMOGLOBIN 10.2 g/dL (12-16); IMMATURE GRANULOCYTES 0.2 % (0-5); LYMPHOCYTES 26.6 % (15-50); MCH 31.2 pg (26.0-34.0); MCHC 31.5 g/dL (31.0-37.0); MCV 99.1 fL (80.0-100.0); MEAN PLATELET VOLUME 10.5 fL (7.4-10.4); MONOCYTES 10.2 % (2-11); PLATELET COUNT 354 10x3/uL (130-400); RBC 3.27 10x6/uL (4.00-5.40); WBC 5.5 10x3/uL (4.8-10.8)
[2019-03-25 10:25] LABS: CALCIUM 8.6 mg/dL (8.5-10.1); CREATININE - SERUM 0.9 mg/dL (0.6-1.3)
[2019-03-25 10:27] LABS: ANION GAP 17.8 mmol/L (8-16); CARBON DIOXIDE 21.1 mmol/L (21.0-32.0); POTASSIUM - SERUM 4.9 mmol/L (3.5-5.1)
[2019-03-25 11:59] VITALS: BP 147/80
--- NOTE | 2019-03-25 13:50 | NUR ---
I have reviewed this patient and I concur with the Shift Assessment completed by the Licensed Practical Nurse today this shift.
[2019-03-25 20:25] VITALS: BP 147/74
--- NOTE | 2019-03-25 20:27 | NUR ---
HS MEDS GIVEN WITH FRESH ICE WATER. MORPHINE 4 MG AND ZOFRAN 4 MG GIVEN AT PT REQUEST FOR C/O PAIN AND NAUSEA.
--- NOTE | 2019-03-25 22:27 | NUR ---
SANDWHICH TRAY AND SODA GIVEN AT PT REQUEST.
[2019-03-26 00:45] VITALS: BP 149/76
--- NOTE | 2019-03-26 02:50 | NUR ---
I have reviewed this patient and I concur with the Shift Assessment completed by the Licensed Practical Nurse today this shift.
--- NOTE | 2019-03-26 03:44 | NUR ---
RESTING WITH EYES CLOSED, RESPERATIONS EVEN, NO S/S DISTRESS NOTED.
[2019-03-26 04:19] LABS: BASOPHILS 0.4 % (0-2); EOSINOPHILS 3.4 % (0-7); HEMATOCRIT 31.8 % (36.0-48.0); HEMOGLOBIN 10.2 g/dL (12-16); IMMATURE GRANULOCYTES 0.2 % (0-5); LYMPHOCYTES 31.1 % (15-50); MCH 31.6 pg (26.0-34.0); MCHC 32.1 g/dL (31.0-37.0); MCV 98.5 fL (80.0-100.0); MEAN PLATELET VOLUME 10.1 fL (7.4-10.4); MONOCYTES 8.5 % (2-11); NEUTROPHILS 56.4 % (40-80); PLATELET COUNT 370 10x3/uL (130-400); RBC 3.23 10x6/uL (4.00-5.40); RDW 13.8 % (11.5-14.5); WBC 5.7 10x3/uL (4.8-10.8)
[2019-03-26 04:30] VITALS: BP 137/70
[2019-03-26 04:30] LABS: ANION GAP 8.7 mmol/L (8-16); CARBON DIOXIDE 30.6 mmol/L (21.0-32.0); CREATININE - SERUM 0.9 mg/dL (0.6-1.3); MAGNESIUM - SERUM 2.1 mg/dL (1.8-2.4); PHOSPHOROUS 4.1 mg/dL (2.5-4.9); POTASSIUM - SERUM 4.3 mmol/L (3.5-5.1)
--- NOTE | 2019-03-26 07:31 | NUR ---
ALERT AND ORIENTED. TELEMERTY SHOWS SR 84 O2 AT 3 L/M PER NC. RIGHT FA WITH LR AT 75. NO NEEDS NOTED. SR UP WITH CALL LIGHT IN REACH
[2019-03-26 09:00] VITALS: BP 125/76
--- NOTE | 2019-03-26 09:56 | MORECARE ---
CASE MANAGEMENT DISCHARGE SUMMARY PATIENT: JJ FIELD UNIT: [id number] ADM DATE: 03/20/19 AGE: 58 : 64 SEX: F ROOM/BED: D.2102 AUTHOR: JAZIELDOC PHYSICIAN: REFERRING PHYSICIAN: ELIAN MÉNDEZ MD DATE OF SERVICE: 03/26/19 Discharge Plan Patient Name: JJ FIELD Facility: [facility]:[place] : 1960 Planned Disposition: Inpatient Rehab Anticipated Discharge Date: 03/28/19 Discharge Date: Expected LOS: 8 Initial Reviewer: [id number] Initial Review Date: 03/18/2019 Generated: 03/26/19 10:55 am DCP- Discharge Planning Updated by [id number]: Jordan Pizarro on 03/23/19 11:[address] Patient Name: JJ FIELD Admission Status: ER Accout number: [id number] Admission Date: 03-20-2019 : 1960 Admission Diagnosis:HYPOKALEMIA Attending: ELIAN MÉNDEZ Current LOS: 3 Anticipated DC Date: 03-22-2019 Planned Disposition: Inpatient Rehab Primary Insurance: [facility] MEDICARE SOLUTIONS PLANNED EXTERNAL PROVIDER: [facility] INPATIENT REHAB Discharge Planning Comments: CM RECEIVED DENIAL FOR INPATIENT REHAB FROM [facility]. THIS WAS DISCUSSED IN INTERDISCIPLINARY TEAM MEETING. CM OBTAINED DR. SPAULDING'S CELL NUMBER FOR PEER TO PEER. CM CALLED LAYLA WITH [employer], , PROVIDED DR. SPAULDING'S NUMBER FOR PEER TO PEER. LAYLA ADVISED HER CRIME SPECIALIST WILL CALL DR. SPAULDING TODAY FOR PEER TO PEER. CM WAITING PEER TO PEER COMPLETION AND RECONSIDERATION OF INPATIENT REHAB DENIAL FROM [facility] MEDICARE SOLUTIONS. Java Oracle Developer: Jordan Pizarro DCP- Discharge Planning Updated by [id number]: Jordan Pizarro on 03/21/19 3:[address] Patient Name: JJ FIELD Admission Status: ER Accout number: [id number] Admission Date: 03-20-2019 : 1960 Admission Diagnosis: Attending: ELIAN MÉNDEZ Current LOS: 1 Anticipated DC Date: 03-22-2019 Planned Disposition: Inpatient Rehab Primary Insurance: [facility] MEDICARE SOLUTIONS Discharge Planning Comments: CM RECEIVED ORDER FOR INPATIENT REHAB PRESCREENING, MET WITH PT IN ROOM TO DISCUSS DISCHARGE PLANNING AND NEEDS. PT REPORTS LIVING AT HOME INDEPENDENTY AND ALONE. PT REPORTS HER DAUGHTER IN LAW WILL BE STAYING WITH HER WHEN SHE GOES HOME. PT HAS CANE AND WALKER WITH NO MEDICAL EQUIPMENT PROVIDER PREFERENCE. PT HAS NO OUTSIDE SERVICES ASSISTING IN THE HOME. CM DISCUSSED AVAILABILITY OF HOME HEALTH, REHAB SERVICES AND MEDICAL EQUIPMENT. PT WOULD LIKE TO HAVE REHAB AT [facility]. IF DECLINED, PT WILL NOT CONSIDER GOING TO A ALF FACILITY. CM REVIEWED CHART AND DOCTORS NOTES INDICATING PT IS NOT FUNCTIONING AT A HIGH ENOUGH LEVEL TO GO HOME SAFELY. PT STATES SHE IS UP INDEPENDENTLY IN ROOM AND CAN WALK HOUSEHOLD DISTANCES WITHOUT ASSISTANCE. CM EXPLAINED THAT PT WILL NEED TO DEMONSTRATE THIS TO NURSING, THE DOCTOR AND PHYSICAL THERAPY. PT STATES SHE WILL. PT REPORTS REPORTS HER DAUGHTER WILL PICK HER UP FOR DISCHARGE HOME. CHOICE FOR [facility] SIGNED. PT WOULD LIKE INPATIENT REHAB AT [facility]. IF DECLINED, PT WILL NOT GO TO ALF REHAB AND WILL GO HOME WITH [facility], PT'S DAUGHTER IN LAW TO MOVE IN SOMETIME AFTER PT GOES HOME FROM HOSPITAL. CM WAITING INPATIENT PRESCREENING RESULTS AND INSURANCE DETERMINATION FOR INPATIENT REHAB SERVICES. Java Oracle Developer: Jordan Pizarro [facility] - Discharge Planning Initial Assessment Updated by [id number]: Jordan Pizarro on 03/21/19 4:20 pm * Is the patient Alert and Oriented? Yes * How many steps to enter\exit or inside your home? * PCP DR. MICHAEL PEDRAZA * Pharmacy [facility] [address] * Preadmission Environment Home with Family * ADLs Independent * Equipment Cane Walker * Other Equipment NO MEDICAL EQUIPMENT PROVIDER PREFERENCE * List name and contact numbers for known caregivers / representatives who currently or will assist patient after discharge: STEFAN SHAW, MARIBEL, * Verbal permission to speak to the caregivers and representatives has been obtained from the patient. N/A * Community resources currently utilized None * Please name any agencies selected above. NONE * Additional services required to return to the preadmission environment? No * Can the patient safely return to the preadmission environment? Yes * Has this patient been hospitalized within the prior 30 days at any hospital? No Coverage Notice Reviewer: [id number] - [facility] Notice Issued Date-Time: 03/19/2019 15:44 Notice Type: Medicare Outpatient Observation Notice Notice Delivered To: Patient Relationship to Patient: Self Trimmer Meat Name: Delivery Method: HAND - Hand Delivered Deyanira Days: Prior Verbal Notification: Recipient Understood Notice: Yes Recipient Signature: Yes Med Rec Note Co-signed by Attending: Coverage Notice Comment: Reviewer: [id number] Daisy iPzarro Notice Issued Date-Time: 03/21/2019 11:50 Notice Type: Patient Choice Letter Notice Delivered To: Patient Relationship to Patient: Trimmer Meat Name: Delivery Method: HAND - Hand Delivered Deyanira Days: Prior Verbal Notification: Recipient Understood Notice: Yes Recipient Signature: Yes Med Rec Note Co-signed by Attending: Coverage Notice Comment: [facility] Last DP export: 03/23/19 11:34 Patient Name: JJ FIELD Page [id number] at 0956 All edits/amendments must be made on the electronic document DICTATION DATE: 03/26/19954 STAFF PSYCHIATRIST: SEBASTIEN 03/26/1953 RPT#: [id number] DC DATE: STATUS: ADM IN [facility] [address] [place] [address] END OF REPORT
--- NOTE | 2019-03-26 10:03 | MORECARE ---
CASE MANAGEMENT DISCHARGE SUMMARY PATIENT: JJ FIELD UNIT: [id number] ADM DATE: 03/20/19 AGE: 58 : 64 SEX: F ROOM/BED: D.2102 AUTHOR: JAZIEL,DOC PHYSICIAN: REFERRING PHYSICIAN: ELINA MÉNDEZ MD DATE OF SERVICE: 03/26/19 Discharge Plan Patient Name: JJ FIELD Facility: [facility]:[place] : 1960 Planned Disposition: Home with Home Health Anticipated Discharge Date: 03/28/19 Discharge Date: Expected LOS: 8 Initial Reviewer: [email or web address] Initial Review Date: 03/18/2019 Generated: 03/26/19 11:03 am DCP- Discharge Planning Updated by [id number]: Jordan Pizarro on 03/23/19 11:[address] Patient Name: JJ FIELD Admission Status: ER Accout number: [id number] Admission Date: 03-20-2019 : 1960 Admission Diagnosis:HYPOKALEMIA Attending: ELIAN MÉNDEZ Current LOS: 3 Anticipated DC Date: 03-22-2019 Planned Disposition: Inpatient Rehab Primary Insurance: [facility] MEDICARE SOLUTIONS PLANNED EXTERNAL PROVIDER: [facility] INPATIENT REHAB Discharge Planning Comments: CM RECEIVED DENIAL FOR INPATIENT REHAB FROM [facility] OF [facility] INPATIENT REHAB. THIS WAS DISCUSSED IN INTERDISCIPLINARY TEAM MEETING. CM OBTAINED DR. SPAULDING'S CELL NUMBER FOR PEER TO PEER. CM CALLED LAYLA WITH [employer], , PROVIDED DR. SPAULDING'S NUMBER FOR PEER TO PEER. LAYLA ADVISED HER [employer] EXTRACTOR WILL CALL DR. SPAULDING TODAY FOR PEER TO PEER. CM WAITING PEER TO PEER COMPLETION AND RECONSIDERATION OF INPATIENT REHAB DENIAL FROM [facility] MEDICARE SOLUTIONS. Floor Person: Jordan Pizarro DCP- Discharge Planning Updated by [id number]: Jordan Pizarro on 03/21/19 3:[address] Patient Name: JJ FIELD Admission Status: ER Accout number: [id number] Admission Date: 03-20-2019 : 1960 Admission Diagnosis: Attending: ELIAN MÉNDEZ Current LOS: 1 Anticipated DC Date: 03-22-2019 Planned Disposition: Inpatient Rehab Primary Insurance: [facility] MEDICARE SOLUTIONS Discharge Planning Comments: CM RECEIVED ORDER FOR INPATIENT REHAB PRESCREENING, MET WITH PT IN ROOM TO DISCUSS DISCHARGE PLANNING AND NEEDS. PT REPORTS LIVING AT HOME INDEPENDENTY AND ALONE. PT REPORTS HER DAUGHTER IN LAW WILL BE STAYING WITH HER WHEN SHE GOES HOME. PT HAS CANE AND WALKER WITH NO MEDICAL EQUIPMENT PROVIDER PREFERENCE. PT HAS NO OUTSIDE SERVICES ASSISTING IN THE HOME. CM DISCUSSED AVAILABILITY OF HOME HEALTH, REHAB SERVICES AND MEDICAL EQUIPMENT. PT WOULD LIKE TO HAVE REHAB AT [facility]. IF DECLINED, PT WILL NOT CONSIDER GOING TO A [facility] FACILITY. CM REVIEWED CHART AND DOCTORS NOTES INDICATING PT IS NOT FUNCTIONING AT A HIGH ENOUGH LEVEL TO GO HOME SAFELY. PT STATES SHE IS UP INDEPENDENTLY IN ROOM AND CAN WALK HOUSEHOLD DISTANCES WITHOUT ASSISTANCE. CM EXPLAINED THAT PT WILL NEED TO DEMONSTRATE THIS TO NURSING, THE DOCTOR AND PHYSICAL THERAPY. PT STATES SHE WILL. PT REPORTS REPORTS HER DAUGHTER WILL PICK HER UP FOR DISCHARGE HOME. CHOICE FOR [email or web address] SIGNED. PT WOULD LIKE INPATIENT REHAB AT [place]. IF DECLINED, PT WILL NOT GO TO [facility] RE[facility]AB AND WILL GO HOME WITH [facility], PT'S DAUGHTER IN LAW TO MOVE IN SOMETIME AFTER PT GOES HOME FROM HOSPITAL. CM WAITING INPATIENT PRESCREENING RESULTS AND INSURANCE DETERMINATION FOR INPATIENT REHAB SERVICES. Floor Person: Jordan Pizarro [facility] - Discharge Planning Initial Assessment Updated by [email or web address]: Jordna Pizarro on 03/21/19 4:20 pm * Is the patient Alert and Oriented? Yes * How many steps to enter\exit or inside your home? * PCP DR. MICHAEL PEDRAZA * Pharmacy [facility] [address] * Preadmission Environment Home with Family * ADLs Independent * Equipment Cane Walker * Other Equipment NO MEDICAL EQUIPMENT PROVIDER PREFERENCE * List name and contact numbers for known caregivers / representatives who currently or will assist patient after discharge: STEFAN SHAW, MARIBEL, * Verbal permission to speak to the caregivers and representatives has been obtained from the patient. N/A * Community resources currently utilized None * Please name any agencies selected above. NONE * Additional services required to return to the preadmission environment? No * Can the patient safely return to the preadmission environment? Yes * Has this patient been hospitalized within the prior 30 days at any hospital? No Coverage Notice Reviewer: [id number] [facility] Notice Issued Date-Time: 03/19/2019 15:44 Notice Type: Medicare Outpatient Observation Notice Notice Delivered To: Patient Relationship to Patient: Self Corporate Executive Name: Delivery Method: HAND - Hand Delivered Deyanira Days: Prior Verbal Notification: Recipient Understood Notice: Yes Recipient Signature: Yes Med Rec Note Co-signed by Attending: Coverage Notice Comment: Reviewer: [email or web address] Pizarro Notice Issued Date-Time: 03/21/2019 11:50 Notice Type: Patient Choice Letter Notice Delivered To: Patient Relationship to Patient: Corporate Executive Name: Delivery Method: HAND - Hand Delivered Deyanira Days: Prior Verbal Notification: Recipient Understood Notice: Yes Recipient Signature: Yes Med Rec Note Co-signed by Attending: Coverage Notice Comment: [facility] Reviewer: [id number] Pizarro Notice Issued Date-Time: 03/26/2019 9:45 Notice Type: IM Discharge Notice Notice Delivered To: Patient Relationship to Patient: Corporate Executive Name: Delivery Method: HAND - Hand Delivered Deaynira Days: Prior Verbal Notification: Recipient Understood Notice: Yes Recipient Signature: Yes Med Rec Note Co-signed by Attending: Coverage Notice Comment: Last DP export: 03/26/19 8:56 Patient Name: JJ FIELD Page [phone] at 1003 All edits/amendments must be made on the electronic document DICTATION DATE: 03/26/19 1002 DIGITAL COMPUTER SYSTEMS ANALYST: SEBASTIEN 03/26/19 1002 RPT#: [id number] DC DATE: STATUS: ADM IN [facility] [address] [place] [address] END OF REPORT
--- NOTE | 2019-03-26 10:11 | MORECARE ---
CASE MANAGEMENT DISCHARGE SUMMARY PATIENT: JJ FIELD UNIT: [id number] ADM DATE: 03/20/19 AGE: 58 : 64 SEX: F ROOM/BED: D.2106 AUTHOR: SANDRINE SHERIFF PHYSICIAN: REFERRING PHYSICIAN: ELIAN MÉNDEZ MD DATE OF SERVICE: 03/26/19 Discharge Plan Patient Name: JJ FIELD Facility: [facility]:[place] : 1960 Planned Disposition: Home with Home Health Anticipated Discharge Date: 03/28/19 Discharge Date: Expected LOS: 8 Initial Reviewer: [id number] Initial Review Date: 03/18/2019 Generated: 03/26/19 11:10 am Comments DCP- Discharge Planning Updated by [id number]: Jordan Pizarro on 03/26/19 9:[address] Patient Name: JJ FIELD Encounter No: [id number] : 1960 Primary Insurance: [facility] MEDICARE SOLUTIONS Anticipated DC Date: 03-28-2019 Planned Disposition: Home with Home Health External Planned Provider: [facility] DCP follow-up note: CM RECEIVED FAX DENIAL LETTER FROM PT'S INSURANCE COMPANY, PROVIDED PT COPY, OBTAINED SIGNATURE FOR RECEIPT. CM PLACED COPY IN PT'S FILE. IMPORTANT MESSAGE FROM MEDICARE PROVIDED AND EXPLAINED. PT STATES SHE IS NOT GOING TO NURSING FACILITY FOR REHAB, SHE WILL GO HOME WITH [facility] AND HER SPOUSE PREVIOUSLY DISCUSSED WITH CM. CHOICE FOR [facility]READ[facility] SIGNED. CM WILL ARRANGE HOME HEALTH FOR DISCHARGE HOME IF PHYSICAN AGREES WITH NEED AND WHEN PROVIDED PHYSICIAN ORDERS. Jordan Pizarro,. CASE MANAGEMENT DCP- Discharge Planning Updated by [id number]: Jordan Pizarro on 03/23/19 11:[address] Patient Name: JJ FIELD Admission Status: ER Accout number: [id number] Admission Date: 03-20-2019 : 1960 Admission Diagnosis:HYPOKALEMIA Attending: ELIAN MÉNDEZ Current LOS: 3 Anticipated DC Date: 03-22-2019 Planned Disposition: Inpatient Rehab Primary Insurance: [facility] MEDICARE SOLUTIONS PLANNED EXTERNAL PROVIDER: [facility] INPATIENT REHAB Discharge Planning Comments: CM RECEIVED DENIAL FOR INPATIENT REHAB FROM [facility] INPAT[facility] REH[facility]. THIS WAS DISCUSSED IN INTERDISCIPLINARY TEAM MEETING. KIRK OBTAINED DR. SPAULDING'S CELL NUMBER FOR PEER TO PEER. CM CALLED LAYLA WITH [employer], , PROVIDED DR. SPAULDING'S NUMBER FOR PEER TO PEER. LAYLA ADVISED HER SAMPLE BOX MAKER WILL CALL DR. SPAULDING TODAY FOR PEER TO PEER. CM WAITING PEER TO PEER COMPLETION AND RECONSIDERATION OF INPATIENT REHAB DENIAL FROM [facility] MEDICARE SOLUTIONS. Automatic Buffing Wheel Former: Jordan Pizarro DCP- Discharge Planning Updated by [email or web address]: Jordan Pizarro on 03/21/19 3:[address] Patient Name: JJ FIELD Admission Status: ER Accout number: [id number] Admission Date: 03-20-2019 : 1960 Admission Diagnosis: Attending: ELIAN MÉNDEZ Current LOS: 1 Anticipated DC Date: 03-22-2019 Planned Disposition: Inpatient Rehab Primary Insurance: [facility] MEDICARE SOLUTIONS Discharge Planning Comments: CM RECEIVED ORDER FOR INPATIENT REHAB PRESCREENING, MET WITH PT IN ROOM TO DISCUSS DISCHARGE PLANNING AND NEEDS. PT REPORTS LIVING AT HOME INDEPENDENTY AND ALONE. PT REPORTS HER DAUGHTER IN LAW WILL BE STAYING WITH HER WHEN SHE GOES HOME. PT HAS CANE AND WALKER WITH NO MEDICAL EQUIPMENT PROVIDER PREFERENCE. PT HAS NO OUTSIDE SERVICES ASSISTING IN THE HOME. CM DISCUSSED AVAILABILITY OF HOME HEALTH, REHAB SERVICES AND MEDICAL EQUIPMENT. PT WOULD LIKE TO HAVE REHAB AT [facility] INPATIENT. IF DECLINED, PT WILL NOT CONSIDER GOING TO A [facility] FACILITY. CM REVIEWED CHART AND DOCTORS NOTES INDICATING PT IS NOT FUNCTIONING AT A HIGH ENOUGH LEVEL TO GO HOME SAFELY. PT STATES SHE IS UP INDEPENDENTLY IN ROOM AND CAN WALK HOUSEHOLD DISTANCES WITHOUT ASSISTANCE. CM EXPLAINED THAT PT WILL NEED TO DEMONSTRATE THIS TO NURSING, THE DOCTOR AND PHYSICAL THERAPY. PT STATES SHE WILL. PT REPORTS REPORTS HER DAUGHTER WILL PICK HER UP FOR DISCHARGE HOME. CHOICE FOR [facility] SIGNED. PT WOULD LIKE INPATIENT REHAB AT [facility]. IF DECLINED, PT WILL NOT GO TO [facility] RE[facility]AB AND WILL GO HOME WITH [facility], PT'S DAUGHTER IN LAW TO MOVE IN SOMETIME AFTER PT GOES HOME FROM HOSPITAL. CM WAITING INPATIENT PRESCREENING RESULTS AND INSURANCE DETERMINATION FOR INPATIENT REHAB SERVICES. Automatic Buffing Wheel Former: Jordan Pizarro [facility] - Discharge Planning Initial Assessment Updated by [id number]: Jordan Pizarro on 03/21/19 4:20 pm * Is the patient Alert and Oriented? Yes * How many steps to enter\exit or inside your home? * PCP DR. MICHAEL PEDRAZA * Pharmacy [facility] [address] * Preadmission Environment Home with Family * ADLs Independent * Equipment Cane Walker * Other Equipment NO MEDICAL EQUIPMENT PROVIDER PREFERENCE * List name and contact numbers for known caregivers / representatives who currently or will assist patient after discharge: STEFAN SHAW, DTR, * Verbal permission to speak to the caregivers and representatives has been obtained from the patient. N/A * Community resources currently utilized None * Please name any agencies selected above. NONE * Additional services required to return to the preadmission environment? No * Can the patient safely return to the preadmission environment? Yes * Has this patient been hospitalized within the prior 30 days at any hospital? No Coverage Notice Reviewer: [id number] Daisy Kilgore Notice Issued Date-Time: 03/19/2019 15:44 Notice Type: Medicare Outpatient Observation Notice Notice Delivered To: Patient Relationship to Patient: Self Barge Engineer Name: Delivery Method: HAND - Hand Delivered Deyanira Days: Prior Verbal Notification: Recipient Understood Notice: Yes Recipient Signature: Yes Med Rec Note Co-signed by Attending: Coverage Notice Comment: Reviewer: [id number] Daisy Pizarro Notice Issued Date-Time: 03/21/2019 11:50 Notice Type: Patient Choice Letter Notice Delivered To: Patient Relationship to Patient: Barge Engineer Name: Delivery Method: HAND - Hand Delivered Deyanira Days: Prior Verbal Notification: Recipient Understood Notice: Yes Recipient Signature: Yes Med Rec Note Co-signed by Attending: Coverage Notice Comment: [facility] Reviewer: [id number] Daisy Pizarro Notice Issued Date-Time: 03/26/2019 9:45 Notice Type: IM Discharge Notice Notice Delivered To: Patient Relationship to Patient: Barge Engineer Name: Delivery Method: HAND - Hand Delivered Deyanira Days: Prior Verbal Notification: Recipient Understood Notice: Yes Recipient Signature: Yes Med Rec Note Co-signed by Attending: Coverage Notice Comment: Last DP export: 03/26/19 9:03 Patient Name: JJ FIELD Page [phone] at 1011 All edits/amendments must be made on the electronic document DICTATION DATE: 03/26/19 1010 DIVE SUPERINTENDENT: SEBASTIEN 03/26/19 1010 RPT#: [id number] DC DATE: STATUS: ADM IN [facility] [address] [place] [address] END OF REPORT
[2019-03-26 14:38] VITALS: BP 122/63
--- NOTE | 2019-03-26 15:16 | NUR ---
OT NOTE: PT COMPLETED SUPINE TO SIT WITH SBA. PT COMPLETED ADL MOB WITH SBA. PT COMPLETED HAIR GROOMING AT EOB WITH SET UP. PT COMPLETED FACE WASH AT EOB WITH SET UP. THANK YOU, LISE PHAN
--- NOTE | 2019-03-26 15:36 | NUR ---
OT NOTE: PT PERFORMED BED MOB IWTH SBA; AMB TO BATHROOM WITH CGA; PT ABLE TO PERFORM CLOTHING MGMT AND TOILET HYGIENE WITHOUT ASSIST. IN ROOM AMBULATION WITH MANAGER POWER. SIT TO STAND EXS FROM CHAIR LEVEL TO IMPROVE TRICEP STRENGTH. JOSEPH DONALDSON, OTR/L
--- NOTE | 2019-03-26 17:36 | NUR ---
LYING QUIETLY . DENIES ANY NEEDS. TELEMERTY SHOWS SR. WILL MONITOR
[2019-03-26 17:51] VITALS: BP 156/88
--- NOTE | 2019-03-26 19:45 | NUR ---
A&O X 4. AMBULATES INDEPENDENTLY WITHOUT DIFFICULTY. DENIES PAIN/DISCOMFORT AT THIS TIME. REQUESTS A SANDWICH. DENIES FURTHER NEEDS AT THIS TIME. WILL CONTINUE TO MONITOR.
[2019-03-26 20:45] VITALS: BP 125/68
[2019-03-27 00:46] VITALS: BP 143/71
--- NOTE | 2019-03-27 02:57 | NUR ---
I have reviewed this patient and I concur with the Shift Assessment completed by the Licensed Practical Nurse today this shift.
[2019-03-27 04:23] VITALS: BP 131/89
[2019-03-27 06:04] LABS: BASOPHILS 0.5 % (0-2); HEMATOCRIT 33.2 % (36.0-48.0); HEMOGLOBIN 10.5 g/dL (12-16); IMMATURE GRANULOCYTES 0.4 % (0-5); LYMPHOCYTES 24.3 % (15-50); MCH 30.6 pg (26.0-34.0); MCHC 31.6 g/dL (31.0-37.0); MCV 96.8 fL (80.0-100.0); MEAN PLATELET VOLUME 10.1 fL (7.4-10.4); MONOCYTES 9.2 % (2-11); NEUTROPHILS 60.6 % (40-80); PLATELET COUNT 421 10x3/uL (130-400); RBC 3.43 10x6/uL (4.00-5.40); RDW 13.7 % (11.5-14.5); WBC 5.6 10x3/uL (4.8-10.8)
[2019-03-27 06:17] LABS: ANION GAP 10.3 mmol/L (8-16); CARBON DIOXIDE 29.6 mmol/L (21.0-32.0); CREATININE - SERUM 0.9 mg/dL (0.6-1.3); PHOSPHOROUS 4.5 mg/dL (2.5-4.9); POTASSIUM - SERUM 3.9 mmol/L (3.5-5.1)
--- NOTE | 2019-03-27 07:00 | NUR ---
RECEIVED REPORT. ASSUMED CARE OF PATIENT. CALL LIGHT WITHIN REACH. PATIENT RESTING ON RIGHT LATERAL SIDE WITH EYES CLOSED. EASILY AROUSED. NO DISTRESS.
[2019-03-27 07:46] VITALS: BP 168/85
--- NOTE | 2019-03-27 10:44 | NUR ---
22 GAUGE IV PLACED TO LEFT WRIST X 1 STICK. GOOD BLOOD RETURN, EASY FLUSH. TAPED, DATED AND SECURED. TOLERATED IV PLACEMENT WELL. IV FLUIDS INFUSING ORDERED AT THIS TIME. 22 GAUGE IV REMOVED FROM RIGHT FOREARM. NO BLEEDING FROM SITE. CATHETER TIP INTACT. TOLERATED IV REMOVAL WELL. SITE WAS STARTING TO BECOME SORE AND CAUSE DISCOMFORT TO PATIENT.
[2019-03-27 11:23] VITALS: BP 129/62
--- NOTE | 2019-03-27 12:37 | NUR ---
MEDICATED FOR PAIN AT THIS TIME. NO DISTRESS.
--- NOTE | 2019-03-27 13:01 | NUR ---
Nutrition Follow-up: Pt reports good appetite/PO intake with no complaints. Diet: Cardiac, Dental Soft PO intake: 88% avg x 4 meals Wt: 175# Last BM: 03/25 per pt Labs reviewed Meds reviewed -Continue current diet as tolerated. -RD following.
--- NOTE | 2019-03-27 14:38 | NUR ---
OT NOTE: PT REPORTS FEELING BETTER TODAY. SHE STATED THAT SHE TOOK A SHOWER THIS AM AND FEELS BETTER FOLLOWING SHOWER. PT AMB TO AND FROM BATHROOM WITH SBA; TOILETING AND HYIENE WITH SPV; ABLE TO LILIAN AND DOFF SOCKS WITH MIN ASSIST; BED MOB WITH SPV; AROM EXS TO IMPROVE STRENGTH AND FUNCTIONAL ENDURANCE. PT WANTS TO GO HOME HEATHER. JOSEPH DONALDSON, OTR/L
[2019-03-27 15:26] VITALS: BP 138/65
--- NOTE | 2019-03-27 15:27 | NUR ---
OT NOTE: PT COMPLETED FACE/HAND WASHING WITH SETUP. PT COMPLETED LB HYGIENE TASKS WITH SET UP. PT COMPLETED BED MOB WITH SPV/SBA. THANK YOU, LISE PHAN
--- NOTE | 2019-03-27 15:54 | NUR ---
RESTING IN BED. NO DISTRESS. ATTENTION TOWARD TELEVISION. CALL LIGHT WITHIN REACH.
--- NOTE | 2019-03-27 18:42 | NUR ---
MEDICATED FOR PAIN AT THIS TIME. NO DISTRESS.
--- NOTE | 2019-03-27 19:37 | NUR ---
REPORT RECEIVED, WILL CONTINUE POC. PATIENT IS AAOX4, UP AD SWAPNA. NO S/S OF DISTRESS OBSERVED, RR EVEN AND UNLABORED ON ROOM AIR. PATIENT COMING BACK FROM BATHROOM UPON ENTERING ROOM. PATIENT DENIES NEEDS AT THIS TIME. IV TO LT WRIST PATENT INFUSING LR @75ML/HR. IV ABX HUNG AT THIS TIME. CL IN REACH, BED LOCKED AND LOWERED. WILL CTM.
[2019-03-27 20:00] VITALS: BP 144/88
[2019-03-28] VITALS: BP 167/76
--- NOTE | 2019-03-28 02:53 | NUR ---
I have reviewed this patient and I concur with the Shift Assessment completed by the Licensed Practical Nurse today this shift.
[2019-03-28 04:00] VITALS: BP 134/66
[2019-03-28 05:08] LABS: BASOPHILS 0.3 % (0-2); EOSINOPHILS 3.7 % (0-7); HEMATOCRIT 33.9 % (36.0-48.0); HEMOGLOBIN 10.9 g/dL (12-16); IMMATURE GRANULOCYTES 0.3 % (0-5); LYMPHOCYTES 25.8 % (15-50); MCH 31.1 pg (26.0-34.0); MCHC 32.2 g/dL (31.0-37.0); MCV 96.9 fL (80.0-100.0); MEAN PLATELET VOLUME 10.1 fL (7.4-10.4); MONOCYTES 7.9 % (2-11); PLATELET COUNT 467 10x3/uL (130-400); RDW 13.9 % (11.5-14.5); WBC 6.7 10x3/uL (4.8-10.8)
[2019-03-28 05:17] LABS: CALC OSMOLALITY 284 mosm/kg (275-300); CALCIUM 8.9 mg/dL (8.5-10.1); CARBON DIOXIDE 29.3 mmol/L (21.0-32.0); CHLORIDE - SERUM 106 mmol/L (98-107); CREATININE - SERUM 0.8 mg/dL (0.6-1.3); GLUCOSE 104 mg/dL (74-106); MAGNESIUM - SERUM 1.9 mg/dL (1.8-2.4); POTASSIUM - SERUM 3.9 mmol/L (3.5-5.1); SODIUM 142 mmol/L (136-145); UREA NITROGEN 18 mg/dL (7-18); eGFR NON AFRICAN AMERICAN 78 mL/min (90-120)
--- NOTE | 2019-03-28 06:33 | NUR ---
PT MEDICATED FOR PLEURITIC CP AT THIS TIME.
[2019-03-28 11:18] VITALS: Ht 152.4 cm; Wt 77.3 kg
--- NOTE | 2019-03-28 15:18 | NUR ---
OT NOTE: PT DOING BETTER. VERY HOPEFUL THAT SHE WILL GET TO GO HOME TODAY. PT ABLE TO PERFORM SIMPLE ADLS AND IN ROOM AMBULATION WITH CGA. PT CONT TO FATIGUE EASILY AND WILL BENEFIT FROM CONTINUED THERAPY (HH) TO IMPROVE FUNCTIONAL ENDURANCE. PT CURRENTLY WITHOUT 02. JOSEPH DONALDSON, OTR/L
--- NOTE | 2019-03-28 15:20 | NUR ---
OT NOTE: PT COMPLETED BED MOB TASKS WITH SPV/MOD I. PT COMPLETED ADL MOB WITH SPV/MOD I. PT COMPLETED TOILETING TASKS WITH SPV/MOD I. THANK YOU,LISE PHAN
[2019-03-28 15:50] VITALS: BP 142/72
--- NOTE | 2019-03-28 16:27 | MORECARE ---
CASE MANAGEMENT DISCHARGE SUMMARY PATIENT: JJ FIELD UNIT: [id number] ADM DATE: 03/20/19 AGE: 58 : 64 SEX: F ROOM/BED: D.2105 AUTHOR: JAZIEL,DOC PHYSICIAN: REFERRING PHYSICIAN: ELIAN MÉNDEZ MD DATE OF SERVICE: 03/28/19 Discharge Plan Patient Name: JJ FIELD Facility: [facility]:[place] : 1960 Planned Disposition: Home with Home Health Anticipated Discharge Date: 03/31/19 Discharge Date: Expected LOS: 11 Initial Reviewer: [id number] Initial Review Date: 03/18/2019 Generated: 03/28/19 5:27 pm Comments DCP- Discharge Planning Updated by [id number]: Jordan Pizarro on 03/28/19 3:[address] Patient Name: JJ FIELD Encounter No: [id number] : 1960 Primary Insurance: [facility] MEDICARE SOLUTIONS Anticipated DC Date: 03-28-2019 Planned Disposition: Home with Home Health External Planned Provider: [facility] DCP follow-up note: CM RECEIVED HOME HEALTH ORDER. CM MET WITH PT IN ROOM TO DISCUSS DISCHARGE NEEDS AND PLANNING. CM DISCUSSED AVAILABILITY OF HOME HEALTH, REHAB SERVICES AND MEDICAL EQUIPMENT. PT DENIES DISCHARGE NEEDS OTHER THAN HOME HEALTH WITH [facility].. SPOUSE TO TRANSPORT HOME AT DISCHARGE. IMPORTANT MESSAGE FROM MEDICARE PROVIDED AND EXPLAINED. CM CALLED [facility], , SPOKE TO FRANCESCA, REFERRAL PROVIDED, . CM FAXED REFERRAL INFORMATION TO [facility] AT [phone]. FOR DISCHARGE, CALL AND NOTIFY [facility] AT [phone], FAX DISCHARGE INFORMATION TO [facility] AT [phone]. Jordan Pizarro, CASE MANAGEMENT DCP- Discharge Planning Updated by [id number]: Jordan Pizarro on 03/26/19 9:[address] Patient Name: JJ FIELD Encounter No: [id number] : 1960 Primary Insurance: [facility] MEDICARE SOLUTIONS Anticipated DC Date: 03-28-2019 Planned Disposition: Home with Home Health External Planned Provider: [facility] DCP follow-up note: CM RECEIVED FAX DENIAL LETTER FROM PT'S INSURANCE COMPANY, PROVIDED PT COPY, OBTAINED SIGNATURE FOR RECEIPT. CM PLACED COPY IN PT'S FILE. IMPORTANT MESSAGE FROM MEDICARE PROVIDED AND EXPLAINED. PT STATES SHE IS NOT GOING TO NURSING FACILITY FOR REHAB, SHE WILL GO HOME WITH [facility] AND HER SPOUSE PREVIOUSLY DISCUSSED WITH CM. CHOICE FOR [facility] ALREADY SIGNED. CM WILL ARRANGE HOME HEALTH FOR DISCHARGE HOME IF PHYSICAN AGREES WITH NEED AND WHEN PROVIDED PHYSICIAN ORDERS. Jordan Pizarro,. CASE MANAGEMENT DCP- Discharge Planning Updated by [id number]: Jordan Pizarro on 03/23/19 11:[address] Patient Name: JJ FIELD Admission Status: ER Accout number: [id number] Admission Date: 03-20-2019 : 1960 Admission Diagnosis:HYPOKALEMIA Attending: ELIAN MÉNDEZ Current LOS: 3 Anticipated DC Date: 03-22-2019 Planned Disposition: Inpatient Rehab Primary Insurance: [facility] MEDICARE SOLUTIONS PLANNED EXTERNAL PROVIDER: [facility] INPATIENT REHAB Discharge Planning Comments: CM RECEIVED DENIAL FOR INPATIENT REHAB FROM [facility]. THIS WAS DISCUSSED IN INTERDISCIPLINARY TEAM MEETING. CM OBTAINED DR. SPAULDING'S CELL NUMBER FOR PEER TO PEER. CM CALLED LAYLA WITH [employer], , PROVIDED DR. SPAULDING'S NUMBER FOR PEER TO PEER. LAYLA ADVISED HER PROMOTION PRODUCER WILL CALL DR. SPAULDING TODAY FOR PEER TO PEER. CM WAITING PEER TO PEER COMPLETION AND RECONSIDERATION OF INPATIENT REHAB DENIAL FROM [employer] MEDICARE SOLUTIONS. Transitions Manager: Jordan Pizarro DCP- Discharge Planning Updated by [email or web address]: Jordan Pizarro on 03/21/19 3:[address] Patient Name: JJ FIELD Admission Status: ER Accout number: [id number] Admission Date: 03-20-2019 : 1960 Admission Diagnosis: Attending: ELIAN MÉNDEZ Current LOS: 1 Anticipated DC Date: 03-22-2019 Planned Disposition: Inpatient Rehab Primary Insurance: [facility] MEDICARE SOLUTIONS Discharge Planning Comments: CM RECEIVED ORDER FOR INPATIENT REHAB PRESCREENING, MET WITH PT IN ROOM TO DISCUSS DISCHARGE PLANNING AND NEEDS. PT REPORTS LIVING AT HOME INDEPENDENTY AND ALONE. PT REPORTS HER DAUGHTER IN LAW WILL BE STAYING WITH HER WHEN SHE GOES HOME. PT HAS CANE AND WALKER WITH NO MEDICAL EQUIPMENT PROVIDER PREFERENCE. PT HAS NO OUTSIDE SERVICES ASSISTING IN THE HOME. CM DISCUSSED AVAILABILITY OF HOME HEALTH, REHAB SERVICES AND MEDICAL EQUIPMENT. PT WOULD LIKE TO HAVE REHAB AT [place] [facility]PAT[facility]. IF DECLINED, PT WILL NOT CONSIDER GOING TO A RETIREMENT FACILITY. CM REVIEWED CHART AND DOCTORS NOTES INDICATING PT IS NOT FUNCTIONING AT A HIGH ENOUGH LEVEL TO GO HOME SAFELY. PT STATES SHE IS UP INDEPENDENTLY IN ROOM AND CAN WALK HOUSEHOLD DISTANCES WITHOUT ASSISTANCE. CM EXPLAINED THAT PT WILL NEED TO DEMONSTRATE THIS TO NURSING, THE DOCTOR AND PHYSICAL THERAPY. PT STATES SHE WILL. PT REPORTS REPORTS HER DAUGHTER WILL PICK HER UP FOR DISCHARGE HOME. CHOICE FOR [facility] SIGNED. PT WOULD LIKE INPATIENT REHAB AT [place]. IF DECLINED, PT WILL NOT GO TO RETIREMENT REHAB AND WILL GO HOME WITH [facility], PT'S DAUGHTER IN LAW TO MOVE IN SOMETIME AFTER PT GOES HOME FROM HOSPITAL. CM WAITING INPATIENT PRESCREENING RESULTS AND INSURANCE DETERMINATION FOR INPATIENT REHAB SERVICES. Transitions Manager: Jordan [facility]izarro [facility] - Discharge Planning Initial Assessment Updated by [id number]: Jordan Pizarro on 03/21/19 4:20 pm * Is the patient Alert and Oriented? Yes * How many steps to enter\exit or inside your home? * PCP DR. MICHAEL PEDRAZA * Pharmacy [facility] [address] * Preadmission Environment Home with Family * ADLs Independent * Equipment Cane Walker * Other Equipment NO MEDICAL EQUIPMENT PROVIDER PREFERENCE * List name and contact numbers for known caregivers / representatives who currently or will assist patient after discharge: STEFAN SHAW, DTR, * Verbal permission to speak to the caregivers and representatives has been obtained from the patient. N/A * Community resources currently utilized None * Please name any agencies selected above. NONE * Additional services required to return to the preadmission environment? No * Can the patient safely return to the preadmission environment? Yes * Has this patient been hospitalized within the prior 30 days at any hospital? No External Providers External Provider: [facility] Next Contact Date: 03/28/2019 Service Request Date: Service Type: Resolution: Reviewer: Comments: Coverage Notice Reviewer: [id number] Daisy Liudmila Jame Notice Issued Date-Time: 03/19/2019 15:44 Notice Type: Medicare Outpatient Observation Notice Notice Delivered To: Patient Relationship to Patient: Self Thermostat Machine Tender Name: Delivery Method: HAND - Hand Delivered Deyanira Days: Prior Verbal Notification: Recipient Understood Notice: Yes Recipient Signature: Yes Med Rec Note Co-signed by Attending: Coverage Notice Comment: Reviewer: [id number] Pizarro Notice Issued Date-Time: 03/21/2019 11:50 Notice Type: Patient Choice Letter Notice Delivered To: Patient Relationship to Patient: Thermostat Machine Tender Name: Delivery Method: HAND - Hand Delivered Deyanira Days: Prior Verbal Notification: Recipient Understood Notice: Yes Recipient Signature: Yes Med Rec Note Co-signed by Attending: Coverage Notice Comment: [facility] Reviewer: [id number] Pizarro Notice Issued Date-Time: 03/26/2019 9:45 Notice Type: IM Discharge Notice Notice Delivered To: Patient Relationship to Patient: Thermostat Machine Tender Name: Delivery Method: HAND - Hand Delivered Deyanira Days: Prior Verbal Notification: Recipient Understood Notice: Yes Recipient Signature: Yes Med Rec Note Co-signed by Attending: Coverage Notice Comment: Last DP export: 03/26/19 9:11 Patient Name: JJ FIELD Page [id number] at 1627 All edits/amendments must be made on the electronic document DICTATION DATE: 03/28/191625 TATTOO AND BODY ARTIST: SEBASTIEN 03/28/191625 RPT#: [id number] [place] DATE: STATUS: ADM IN [facility] [address] [place] [address] END OF REPORT
[2019-03-28] MEDS ORDERED: DOXYCYCLINE HY100 M2 PO (19:36)
[2019-03-28] MEDS ORDERED: CLEOCIN HCL300 MG PO (19:36)
--- NOTE | 2019-03-28 19:48 | NUR ---
PATIENT READY TO D/C. SAYS SHE WILL GO [facility] IF NOT D/C'D [facility]. SHE'S BEEN TOLD ALL DAY THAT SHE WAS GOING HOME BUT NO ORDERS HAVE BEEN PUT IN EVEN THOUGH HER PROVIDERS HAVE SIGNED OFF ON HER TO BE D/C'D. SPOKE TO NALLELY LERMA. ORDERS HAVE BEEN PUT IN FOR PATIENT TO D/C. CALLED [facility] TO MAKE SURE HOME HEALTH HAS BEEN ESTABLISHED AND WILL ASSUME CARE. AWAITING CALL BACK FROM THEIR ON-CALL.
--- NOTE | 2019-03-28 20:15 | NUR ---
RECEIVED CALL BACK FROM TEJINDER AT [facility]. SHE SAID THEY KNOW NOTHING OF THIS PATIENT, NEVER GOT A REFERRAL AND WOULD LEAVE A NOTE FOR THE MORNING CREW. NOTIFIED TEJINDER THAT WE HAVE CM NOTES EXPLAINING WHO THEY SPOKE TO AND THAT A REFERRAL WAS FAXED. SHE SAID THERE IS NOTHING THAT CAN BE DONE TONIGHT. FLORENTIN PAGED AND NOTIFIED.
[2019-03-28 20:18] VITALS: BP 132/78
--- NOTE | 2019-03-28 21:32 | NUR ---
DISCHARGE PAPERS SIGNED, COPIES GIVEN. IV OUT, CATH TIP INTACT, BANDAID APPLIED.
--- NOTE | 2019-03-30 08:43 | MORECARE ---
CASE MANAGEMENT DISCHARGE SUMMARY PATIENT: JJ FIELD UNIT: [id number] ADM DATE: 03/20/19 AGE: 58 : 64 SEX: F ROOM/BED: D.2108 AUTHOR: JAZIEL,DOC PHYSICIAN: REFERRING PHYSICIAN: ELIAN MÉNDEZ MD DATE OF SERVICE: 03/30/19 Discharge Plan Patient Name: JJ FIELD Facility: [facility]:[place] : 1960 Planned Disposition: Home with Home Health Anticipated Discharge Date: 03/31/19 Discharge Date: 03/28/2019 Expected LOS: 11 Initial Reviewer: [id number] Initial Review Date: 03/18/2019 Generated: 03/30/19 9:42 am Comments DCP- Discharge Planning Updated by [email or web address]: Jordan Pizarro on 03/30/19 7:[address] Patient Name: JJ FIELD Encounter No: [id number] : 1960 Primary Insurance: [facility] MEDICARE SOLUTIONS Anticipated DC Date: 03-31-2019 Planned Disposition: Home with Home Health External Planned Provider: [facility] DCP follow-up note: CM CALLED [facility], , SPOKE TO FRANCESCA, NOTIFIED OF DISCHARGE ON TUESDAY, CM FAXED DISCHARGE INFORMATION TO [facility] AT [phone]. [facility] TO ADMIT ON TUESDAY AND WILL CALL PT TO SCHEDULE. Jordan Pizarro, CASE MANAGEMENT DCP- Discharge Planning Updated by [id number]: Jordan Pizarro on 03/28/19 3:[address] Patient Name: JJ FIELD Encounter No: [id number] : 1960 Primary Insurance: [facility] MEDICARE SOLUTIONS Anticipated DC Date: 03-28-2019 Planned Disposition: Home with Home Health External Planned Provider: [facility] DCP follow-up note: CM RECEIVED HOME HEALTH ORDER. CM MET WITH PT IN ROOM TO DISCUSS DISCHARGE NEEDS AND PLANNING. CM DISCUSSED AVAILABILITY OF HOME HEALTH, REHAB SERVICES AND MEDICAL EQUIPMENT. PT DENIES DISCHARGE NEEDS OTHER THAN HOME HEALTH WITH [facility].. SPOUSE TO TRANSPORT HOME AT DISCHARGE. IMPORTANT MESSAGE FROM MEDICARE PROVIDED AND EXPLAINED. CM CALLED [facility], , SPOKE TO FRANCESCA, REFERRAL PROVIDED, . CM FAXED REFERRAL INFORMATION TO [facility] AT [phone]. FOR DISCHARGE, CALL AND NOTIFY [facility] AT [phone], FAX DISCHARGE INFORMATION TO [facility] AT [phone]. Jordan Pizarro, CASE MANAGEMENT DCP- Discharge Planning Updated by [id number]: Jordan Pizarro on 03/26/19 9:[address] Patient Name: JJ FIELD Encounter No: [id number] : 1960 Primary Insurance: [facility] MEDICARE SOLUTIONS Anticipated DC Date: 03-28-2019 Planned Disposition: Home with Home Health External Planned Provider: [facility] DCP follow-up note: CM RECEIVED FAX DENIAL LETTER FROM PT'S INSURANCE COMPANY, PROVIDED PT COPY, OBTAINED SIGNATURE FOR RECEIPT. CM PLACED COPY IN PT'S FILE. IMPORTANT MESSAGE FROM MEDICARE PROVIDED AND EXPLAINED. PT STATES SHE IS NOT GOING TO NURSING FACILITY FOR REHAB, SHE WILL GO HOME WITH [facility] AND HER SPOUSE PREVIOUSLY DISCUSSED WITH CM. CHOICE FOR [facility] ALREADY SIGNED. CM WILL ARRANGE HOME HEALTH FOR DISCHARGE HOME IF PHYSICAN AGREES WITH NEED AND WHEN PROVIDED PHYSICIAN ORDERS. Jordan Pizarro,. CASE MANAGEMENT DCP- Discharge Planning Updated by [id number]: Jordan Pizarro on 03/23/19 11:[address] Patient Name: JJ FIELD Admission Status: ER Accout number: [id number] Admission Date: 03-20-2019 : 1960 Admission Diagnosis:HYPOKALEMIA Attending: EILAN MÉNDEZ Current LOS: 3 Anticipated DC Date: 03-22-2019 Planned Disposition: Inpatient Rehab Primary Insurance: [facility] MEDICARE SOLUTIONS PLANNED EXTERNAL PROVIDER: [facility] INPATIENT REHAB Discharge Planning Comments: CM RECEIVED DENIAL FOR INPATIENT REHAB FROM [facility] INPAT[facility]. THIS WAS DISCUSSED IN INTERDISCIPLINARY TEAM MEETING. KIRK OBTAINED DR. SPAULDING'S CELL NUMBER FOR PEER TO PEER. CM CALLED LAYLA WITH [employer], , PROVIDED DR. SPAULDING'S NUMBER FOR PEER TO PEER. LAYLA ADVISED HER PLAYGROUND SUPERVISOR WILL CALL DR. SPAULDING TODAY FOR PEER TO PEER. CM WAITING PEER TO PEER COMPLETION AND RECONSIDERATION OF INPATIENT REHAB DENIAL FROM [employer] MEDICARE SOLUTIONS. Traveling Sales Executive: Jordan Pizarro DCP- Discharge Planning Updated by [id number]: Jordan Pizarro on 03/21/19 3:[address] Patient Name: JJ FIELD Admission Status: ER Accout number: [id number] Admission Date: 03-20-2019 : 1960 Admission Diagnosis: Attending: ELIAN MÉNDEZ Current LOS: 1 Anticipated DC Date: 03-22-2019 Planned Disposition: Inpatient Rehab Primary Insurance: [facility] MEDICARE SOLUTIONS Discharge Planning Comments: CM RECEIVED ORDER FOR INPATIENT REHAB PRESCREENING, MET WITH PT IN ROOM TO DISCUSS DISCHARGE PLANNING AND NEEDS. PT REPORTS LIVING AT HOME INDEPENDENTY AND ALONE. PT REPORTS HER DAUGHTER IN LAW WILL BE STAYING WITH HER WHEN SHE GOES HOME. PT HAS CANE AND WALKER WITH NO MEDICAL EQUIPMENT PROVIDER PREFERENCE. PT HAS NO OUTSIDE SERVICES ASSISTING IN THE HOME. CM DISCUSSED AVAILABILITY OF HOME HEALTH, REHAB SERVICES AND MEDICAL EQUIPMENT. PT WOULD LIKE TO HAVE REHAB AT [place] INPATIENT. IF DECLINED, PT WILL NOT CONSIDER GOING TO A ALF FACILITY. CM REVIEWED CHART AND DOCTORS NOTES INDICATING PT IS NOT FUNCTIONING AT A HIGH ENOUGH LEVEL TO GO HOME SAFELY. PT STATES SHE IS UP INDEPENDENTLY IN ROOM AND CAN WALK HOUSEHOLD DISTANCES WITHOUT ASSISTANCE. CM EXPLAINED THAT PT WILL NEED TO DEMONSTRATE THIS TO NURSING, THE DOCTOR AND PHYSICAL THERAPY. PT STATES SHE WILL. PT REPORTS REPORTS HER DAUGHTER WILL PICK HER UP FOR DISCHARGE HOME. CHOICE FOR [facility] SIGNED. PT WOULD LIKE INPATIENT REHAB AT [place]. IF DECLINED, PT WILL NOT GO TO ALF REHAB AND WILL GO HOME WITH [facility], PT'S DAUGHTER IN LAW TO MOVE IN SOMETIME AFTER PT GOES HOME FROM HOSPITAL. CM WAITING INPATIENT PRESCREENING RESULTS AND INSURANCE DETERMINATION FOR INPATIENT REHAB SERVICES. Traveling Sales Executive: Jordan Pizarro DCPIA - Discharge Planning Initial Assessment Updated by [id number]: Jordan Pizarro on 03/21/19 4:20 pm * Is the patient Alert and Oriented? Yes * How many steps to enter\exit or inside your home? * PCP DR. MICHAEL PEDRAZA * Pharmacy [facility] [address] * Preadmission Environment Home with Family * ADLs Independent * Equipment Cane Walker * Other Equipment NO MEDICAL EQUIPMENT PROVIDER PREFERENCE * List name and contact numbers for known caregivers / representatives who currently or will assist patient after discharge: STEFAN SHAW DTR, * Verbal permission to speak to the caregivers and representatives has been obtained from the patient. N/A * Community resources currently utilized None * Please name any agencies selected above. NONE * Additional services required to return to the preadmission environment? No * Can the patient safely return to the preadmission environment? Yes * Has this patient been hospitalized within the prior 30 days at any hospital? No Coverage Notice Reviewer: [id number] Daisy Liudmila Kilgore Notice Issued Date-Time: 03/19/2019 15:44 Notice Type: Medicare Outpatient Observation Notice Notice Delivered To: Patient Relationship to Patient: Self Corporate Relations Director Name: Delivery Method: HAND - Hand Delivered Deyanira Days: Prior Verbal Notification: Recipient Understood Notice: Yes Recipient Signature: Yes Med Rec Note Co-signed by Attending: Coverage Notice Comment: Reviewer: [id number] Daisy Pizarro Notice Issued Date-Time: 03/21/2019 11:50 Notice Type: Patient Choice Letter Notice Delivered To: Patient Relationship to Patient: Corporate Relations Director Name: Delivery Method: HAND - Hand Delivered Deyanira Days: Prior Verbal Notification: Recipient Understood Notice: Yes Recipient Signature: Yes Med Rec Note Co-signed by Attending: Coverage Notice Comment: [facility] Reviewer: [id number] Daisy Pizarro Notice Issued Date-Time: 03/26/2019 9:45 Notice Type: IM Discharge Notice Notice Delivered To: Patient Relationship to Patient: Corporate Relations Director Name: Delivery Method: HAND - Hand Delivered Deyanira Days: Prior Verbal Notification: Recipient Understood Notice: Yes Recipient Signature: Yes Med Rec Note Co-signed by Attending: Coverage Notice Comment: Last DP export: 03/28/19 3:27 Patient Name: JJ FIELD Page [id number] at 0843 All edits/amendments must be made on the electronic document DICTATION DATE: 03/30/1940 ASSIGNMENT OFFICER: SEBASTIEN 03/30/19 0842 RPT#: [id number] DC DATE:03/28/19 STATUS: DIS IN [facility] [address] [place] [address] END OF REPORT
--- NOTE | 2019-03-30 08:55 | MORECARE ---
CASE MANAGEMENT DISCHARGE SUMMARY PATIENT: JJ FIELD UNIT: [id number] ADM DATE: 03/20/19 AGE: 58 : 64 SEX: F ROOM/BED: D.2100 AUTHOR: JAZIEL,DOC PHYSICIAN: REFERRING PHYSICIAN: ELIAN MÉNDEZ MD DATE OF SERVICE: 03/30/19 Discharge Plan Patient Name: JJ FIELD Facility: [facility]:[place] : 1960 Planned Disposition: Home with Home Health Anticipated Discharge Date: 03/28/19 Discharge Date: 03/28/2019 Expected LOS: 8 Initial Reviewer: [id number] Initial Review Date: 03/18/2019 Generated: 03/30/19 9:55 am Comments DCP- Discharge Planning Updated by [email or web address]: Jordan Pizarro on 03/30/19 7:[address] Patient Name: JJ FIELD Encounter No: [id number] : 1960 Primary Insurance: [facility] [employer] Anticipated DC Date: 03-31-2019 Planned Disposition: Home with Home Health External Planned Provider: [employer] [facility] DCP follow-up note: CM CALLED [employer], , SPOKE TO FRANCESCA, NOTIFIED OF DISCHARGE ON TUESDAY, CM FAXED DISCHARGE INFORMATION TO [employer] AT [phone]. [facility] TO ADMIT ON TUESDAY AND WILL CALL PT TO SCHEDULE. Jordan Pizarro, CASE MANAGEMENT DCP- Discharge Planning Updated by [id number]: Jordan Pizarro on 03/28/19 3:[address] Patient Name: JJ FIELD Encounter No: [id number] : 1960 Primary Insurance: [facility] [employer] Anticipated DC Date: 03-28-2019 Planned Disposition: Home with Home Health External Planned Provider: [facility] DCP follow-up note: CM RECEIVED HOME HEALTH ORDER. CM MET WITH PT IN ROOM TO DISCUSS DISCHARGE NEEDS AND PLANNING. CM DISCUSSED AVAILABILITY OF HOME HEALTH, REHAB SERVICES AND MEDICAL EQUIPMENT. PT DENIES DISCHARGE NEEDS OTHER THAN HOME HEALTH WITH [facility].. SPOUSE TO TRANSPORT HOME AT DISCHARGE. IMPORTANT MESSAGE FROM MEDICARE PROVIDED AND EXPLAINED. CM CALLED [employer], , SPOKE TO FRANCESCA, REFERRAL PROVIDED, . CM FAXED REFERRAL INFORMATION TO [employer] AT [phone]. FOR DISCHARGE, CALL AND NOTIFY [employer] [facility] AT [phone], FAX DISCHARGE INFORMATION TO [facility] AT [phone]. Jordan Pizarro, CASE MANAGEMENT DCP- Discharge Planning Updated by [id number]: Jordan Pizarro on 03/26/19 9:[address] Patient Name: JJ FIELD Encounter No: [id number] : 1960 Primary Insurance: [facility] [employer] Anticipated DC Date: 03-28-2019 Planned Disposition: Home with Home Health External Planned Provider: [facility] DCP follow-up note: CM RECEIVED FAX DENIAL LETTER FROM PT'S INSURANCE COMPANY, PROVIDED PT COPY, OBTAINED SIGNATURE FOR RECEIPT. CM PLACED COPY IN PT'S FILE. IMPORTANT MESSAGE FROM MEDICARE PROVIDED AND EXPLAINED. PT STATES SHE IS NOT GOING TO NURSING FACILITY FOR REHAB, SHE WILL GO HOME WITH [facility] AND HER SPOUSE PREVIOUSLY DISCUSSED WITH CM. CHOICE FOR [employer] ALREADY SIGNED. CM WILL ARRANGE HOME HEALTH FOR DISCHARGE HOME IF PHYSICAN AGREES WITH NEED AND WHEN PROVIDED PHYSICIAN ORDERS. Jordan Pizarro,. CASE MANAGEMENT DCP- Discharge Planning Updated by [id number]: Jordan Pizarro on 03/23/19 11:[address] Patient Name: JJ FIELD Admission Status: ER Accout number: [id number] Admission Date: 03-20-2019 : 1960 Admission Diagnosis:HYPOKALEMIA Attending: ELIAN MÉNDEZ Current LOS: 3 Anticipated DC Date: 03-22-2019 Planned Disposition: Inpatient Rehab Primary Insurance: [facility] [employer] PLANNED EXTERNAL PROVIDER: [facility] Discharge Planning Comments: CM RECEIVED DENIAL FOR INPATIENT REHAB FROM [facility] OF [facility]. THIS WAS DISCUSSED IN INTERDISCIPLINARY TEAM MEETING. KIRK OBTAINED DR. SPAULDING'S CELL NUMBER FOR PEER TO PEER. CM CALLED LAYLA WITH [employer], , PROVIDED DR. SPAULDING'S NUMBER FOR PEER TO PEER. LAYLA ADVISED HER MANAGER ADULT WILL CALL DR. SPAULDING TODAY FOR PEER TO PEER. CM WAITING PEER TO PEER COMPLETION AND RECONSIDERATION OF INPATIENT REHAB DENIAL FROM [employer]. Wood Engraver: Jordan Pizarro DCP- Discharge Planning Updated by [id number]: Jordan Pizarro on 03/21/19 3:[address] Patient Name: JJ FIELD Admission Status: ER Accout number: [id number] Admission Date: 03-20-2019 : 1960 Admission Diagnosis: Attending: ELIAN MÉNDEZ Current LOS: 1 Anticipated DC Date: 03-22-2019 Planned Disposition: Inpatient Rehab Primary Insurance: [facility] [employer] Discharge Planning Comments: CM RECEIVED ORDER FOR INPATIENT REHAB PRESCREENING, MET WITH PT IN ROOM TO DISCUSS DISCHARGE PLANNING AND NEEDS. PT REPORTS LIVING AT HOME INDEPENDENTY AND ALONE. PT REPORTS HER DAUGHTER IN LAW WILL BE STAYING WITH HER WHEN SHE GOES HOME. PT HAS [employer] [facility] WITH NO MEDICAL EQUIPMENT PROVIDER PREFERENCE. PT HAS NO OUTSIDE SERVICES ASSISTING IN THE HOME. CM DISCUSSED AVAILABILITY OF HOME HEALTH, REHAB SERVICES AND MEDICAL EQUIPMENT. PT WOULD LIKE TO HAVE REHAB AT [facility] INPAT[facility]. IF DECLINED, PT WILL NOT CONSIDER GOING TO A LONG TERM FACILITY. CM REVIEWED CHART AND DOCTORS NOTES INDICATING PT IS NOT FUNCTIONING AT A HIGH ENOUGH LEVEL TO GO HOME SAFELY. PT STATES SHE IS UP INDEPENDENTLY IN ROOM AND CAN WALK HOUSEHOLD DISTANCES WITHOUT ASSISTANCE. CM EXPLAINED THAT PT WILL NEED TO DEMONSTRATE THIS TO NURSING, THE DOCTOR AND PHYSICAL THERAPY. PT STATES SHE WILL. PT REPORTS REPORTS HER DAUGHTER WILL PICK HER UP FOR DISCHARGE HOME. CHOICE FOR [facility] [facility] SIGNED. PT WOULD LIKE INPATIENT REHAB AT [facility]. IF DECLINED, PT WILL NOT GO TO LONG TERM REHAB AND WILL GO HOME WITH [facility], PT'S DAUGHTER IN LAW TO MOVE IN SOMETIME AFTER PT GOES HOME FROM HOSPITAL. CM WAITING INPATIENT PRESCREENING RESULTS AND INSURANCE DETERMINATION FOR INPATIENT REHAB SERVICES. Wood Engraver: Jordan Pizarro DCPIA - Discharge Planning Initial Assessment Updated by [email or web address]: Jordan Pizarro on 03/21/19 4:20 pm * Is the patient Alert and Oriented? Yes * How many steps to enter\exit or inside your home? * PCP DR. MICHAEL PEDRAZA * Pharmacy [facility] [address] * Preadmission Environment Home with Family * ADLs Independent * Equipment Cane Walker * Other Equipment NO MEDICAL EQUIPMENT PROVIDER PREFERENCE * List name and contact numbers for known caregivers / representatives who currently or will assist patient after discharge: STEFAN SHAW DTR, * Verbal permission to speak to the caregivers and representatives has been obtained from the patient. N/A * Community resources currently utilized None * Please name any agencies selected above. NONE * Additional services required to return to the preadmission environment? No * Can the patient safely return to the preadmission environment? Yes * Has this patient been hospitalized within the prior 30 days at any hospital? No Coverage Notice Reviewer: [id number] Daisy Pizarro Notice Issued Date-Time: 03/26/2019 9:45 Notice Type: IM Discharge Notice Notice Delivered To: Patient Relationship to Patient: [employer] Manager Name: Delivery Method: HAND - Hand Delivered Deyanira Days: Prior Verbal Notification: Recipient Understood Notice: Yes Recipient Signature: Yes Med Rec Note Co-signed by Attending: Coverage Notice Comment: Reviewer: [id number] Daisy Pizarro Notice Issued Date-Time: 03/21/2019 11:50 Notice Type: Patient Choice Letter Notice Delivered To: Patient Relationship to Patient: [employer] Manager Name: Delivery Method: HAND - Hand Delivered Deyanira Days: Prior Verbal Notification: Recipient Understood Notice: Yes Recipient Signature: Yes Med Rec Note Co-signed by Attending: Coverage Notice Comment: [facility] Reviewer: [id number] Daisy Kilgore Notice Issued Date-Time: 03/19/2019 15:44 Notice Type: Medicare Outpatient Observation Notice Notice Delivered To: Patient Relationship to Patient: Self [employer] Manager Name: Delivery Method: HAND - Hand Delivered Deyanira Days: Prior Verbal Notification: Recipient Understood Notice: Yes Recipient Signature: Yes Med Rec Note Co-signed by Attending: Coverage Notice Comment: Last DP export: 03/30/19 7:43 Patient Name: JJ FIELD Page [id number] at 0855 All edits/amendments must be made on the electronic document DICTATION DATE: 03/30/19 0855 ENGINEER STEAM: SEBASTIEN 03/30/19 0855 RPT#: [id number] DC DATE:03/28/19 STATUS: DIS IN [facility] [address] [place] [address] END OF REPORT
[2019-03-31 14:08] LABS: IMMUNOGLOBULIN E 7 IU/mL (6-495)
== END 2019-03-28 21:42 | disposition home health service (06) | DRG 640 ==
LOC: D.ER 19:09 → OBSVTIME 21:28 → D.M2 21:28
PROVIDERS: Emergency Medicine; Family Medicine Adult Medicine; Internal Medicine Pulmonary Disease; ADMIT Internal Medicine Nephrology; ATTEND Internal Medicine Nephrology
DX: E87.6 Hypokalemia (principal); J18.1 Lobar pneumonia, unspecified organism; N39.0 Urinary tract infection, site not specified; J44.1 Chronic obstructive pulmonary disease with (acute) exacerbation; J44.0 Chronic obstructive pulmonary disease with (acute) lower respiratory infection; E83.42 Hypomagnesemia; D64.9 Anemia, unspecified; E87.0 Hyperosmolality and hypernatremia; I25.10 Atherosclerotic heart disease of native coronary artery without angina pectoris; I10 Essential (primary) hypertension; K21.9 Gastro-esophageal reflux disease without esophagitis; G89.29 Other chronic pain; M54.9 Dorsalgia, unspecified; T14.8XXA Other injury of unspecified body region, initial encounter; W19.XXXA Unspecified fall, initial encounter; R42 Dizziness and giddiness; B96.1 Klebsiella pneumoniae [K. pneumoniae] as the cause of diseases classified elsewhere; Z86.73 Personal history of transient ischemic attack (TIA), and cerebral infarction without residual deficits; Z86.711 Personal history of pulmonary embolism

== ENCOUNTER 2019-04-08 20:49 | Emergency (ER) | payer MEDICARE, MEDICAID ==
[~2019-04-08] VITALS: Ht 152.4 cm; Wt 77.1 kg
[~2019-04-08 20:49] MED LIST changes: +CLEOCIN HCL300 MG PO; +DOXYCYCLINE HY100 M2 PO
[2019-04-08 20:52] VITALS: Ht 152.4 cm; Wt 77.1 kg
[2019-04-08 21:17] LABS: BASOPHILS 0.2 % (0-2); EOSINOPHILS 1.1 % (0-7); HEMATOCRIT 37.6 % (36.0-48.0); HEMOGLOBIN 12.3 g/dL (12-16); IMMATURE GRANULOCYTES 0.2 % (0-5); LYMPHOCYTES 21.9 % (15-50); MCHC 32.7 g/dL (31.0-37.0); MCV 94.7 fL (80.0-100.0); MEAN PLATELET VOLUME 9.5 fL (7.4-10.4); MONOCYTES 5.2 % (2-11); NEUTROPHILS 71.4 % (40-80); PLATELET COUNT 398 10x3/uL (130-400); RBC 3.97 10x6/uL (4.00-5.40); RDW 13.9 % (11.5-14.5); WBC 8.3 10x3/uL (4.8-10.8)
[2019-04-08 21:24] LABS: APTT 30.9 SECONDS (22.8-39.4); CALC OSMOLALITY 285 mosm/kg (275-300); CALCIUM 9.8 mg/dL (8.5-10.1); CARBON DIOXIDE 30.9 mmol/L (21.0-32.0); CHLORIDE - SERUM 105 mmol/L (98-107); CREATININE - SERUM 0.7 mg/dL (0.6-1.3); GLUCOSE 102 mg/dL (74-106); INR 1.05 (0.85-1.17); POTASSIUM - SERUM 3.4 mmol/L (3.5-5.1); PROTIME 13.2 SECONDS (11.6-15.0); SODIUM 142 mmol/L (136-145); UREA NITROGEN 20 mg/dL (7-18); eGFR NON AFRICAN AMERICAN > 90 mL/min (90-120)
[2019-04-08 21:40] LABS: ALBUMIN 3.8 g/dL (3.4-5.0); ALKALINE PHOSPHATASE 92 U/L (46-116); ALT (SGPT) 26 U/L (10-68); BILIRUBIN - TOTAL 0.43 mg/dL (0.2-1.3); CKMB 0.5 U/L (0.0-3.6); CREATINE KINASE 61 UL (21-215); PRO BNP 37 pg/mL (0-125); PROTEIN - SERUM 8.1 g/dL (6.4-8.2); TROPONIN-I < 0.017 ng/mL (0.000-0.060)
[2019-04-08] MEDS ORDERED: HYDROCODON-ACE1 EAC2 PO (22:00)
[2019-04-08 22:41] VITALS: BP 155/80
== END 2019-04-08 22:40 | disposition home or self-care (01) ==
LOC: D.ER 20:49
PROVIDERS: Emergency Medicine
DX: R07.9 Chest pain, unspecified (principal); E87.6 Hypokalemia; I10 Essential (primary) hypertension; I25.119 Atherosclerotic heart disease of native coronary artery with unspecified angina pectoris; I73.9 Peripheral vascular disease, unspecified; J44.9 Chronic obstructive pulmonary disease, unspecified; K21.9 Gastro-esophageal reflux disease without esophagitis; M54.9 Dorsalgia, unspecified

== ENCOUNTER 2019-04-16 14:20 | Emergency (ER) | payer MEDICARE, MEDICAID ==
[~2019-04-16] VITALS: Ht 152.4 cm; Wt 77.3 kg
[~2019-04-16 14:20] MED LIST changes: +HYDROCODON-ACE1 EAC2 PO
[2019-04-16 14:34] VITALS: Ht 152.4 cm; Wt 77.3 kg
[2019-04-16 15:03] LABS: BASOPHILS 0.2 % (0-2); EOSINOPHILS 0.7 % (0-7); HEMATOCRIT 38.7 % (36.0-48.0); HEMOGLOBIN 12.9 g/dL (12-16); IMMATURE GRANULOCYTES 0.2 % (0-5); LYMPHOCYTES 25.1 % (15-50); MCH 31.3 pg (26.0-34.0); MCHC 33.3 g/dL (31.0-37.0); MCV 93.9 fL (80.0-100.0); MEAN PLATELET VOLUME 9.6 fL (7.4-10.4); NEUTROPHILS 69.8 % (40-80); PLATELET COUNT 351 10x3/uL (130-400); RBC 4.12 10x6/uL (4.00-5.40); RDW 13.7 % (11.5-14.5); WBC 5.5 10x3/uL (4.8-10.8)
[2019-04-16 15:13] LABS: CALC OSMOLALITY 276 mosm/kg (275-300); CALCIUM 9.8 mg/dL (8.5-10.1); CARBON DIOXIDE 28.8 mmol/L (21.0-32.0); CHLORIDE - SERUM 101 mmol/L (98-107); CREATININE - SERUM 0.8 mg/dL (0.6-1.3); GLUCOSE 106 mg/dL (74-106); POTASSIUM - SERUM 4.1 mmol/L (3.5-5.1); SODIUM 138 mmol/L (136-145); UREA NITROGEN 14 mg/dL (7-18); eGFR NON AFRICAN AMERICAN 78 mL/min (90-120)
[2019-04-16 15:14] LABS: INR 1.33 (0.85-1.17); PROTIME 15.9 SECONDS (11.6-15.0)
[2019-04-16 15:15] LABS: APTT 36.1 SECONDS (22.8-39.4)
[2019-04-16 15:30] LABS: ALBUMIN 4.1 g/dL (3.4-5.0); ALKALINE PHOSPHATASE 76 U/L (46-116); ALT (SGPT) 27 U/L (10-68); BILIRUBIN - TOTAL 0.74 mg/dL (0.2-1.3); CKMB 0.2 U/L (0.0-3.6); CREATINE KINASE 58 UL (21-215); MAGNESIUM - SERUM 2.3 mg/dL (1.8-2.4); PROTEIN - SERUM 8.1 g/dL (6.4-8.2)
[2019-04-16 15:31] LABS: TROPONIN-I < 0.017 ng/mL (0.000-0.060)
[2019-04-16 18:05] VITALS: BP 158/88
== END 2019-04-16 18:05 | disposition home or self-care (01) ==
LOC: D.ER 14:20
PROVIDERS: Family Medicine
DX: R07.81 Pleurodynia (principal); Z09 Encounter for follow-up examination after completed treatment for conditions other than malignant neoplasm; I10 Essential (primary) hypertension; I25.119 Atherosclerotic heart disease of native coronary artery with unspecified angina pectoris; I73.9 Peripheral vascular disease, unspecified; J44.9 Chronic obstructive pulmonary disease, unspecified; M54.9 Dorsalgia, unspecified; K21.9 Gastro-esophageal reflux disease without esophagitis

== ENCOUNTER 2019-04-21 13:40 | Emergency (ER) | payer MEDICARE, MEDICAID ==
[~2019-04-21] VITALS: Ht 152.4 cm; Wt 77.3 kg
[2019-04-21 13:50] VITALS: Ht 152.4 cm; Wt 77.3 kg
[2019-04-21 14:32] LABS: BASOPHILS 0.2 % (0-2); EOSINOPHILS 0.7 % (0-7); HEMATOCRIT 41.3 % (36.0-48.0); HEMOGLOBIN 13.8 g/dL (12-16); IMMATURE GRANULOCYTES 0.4 % (0-5); MCH 31.3 pg (26.0-34.0); MCHC 33.4 g/dL (31.0-37.0); MCV 93.7 fL (80.0-100.0); MEAN PLATELET VOLUME 9.3 fL (7.4-10.4); MONOCYTES 4.8 % (2-11); NEUTROPHILS 71.9 % (40-80); PLATELET COUNT 385 10x3/uL (130-400); RBC 4.41 10x6/uL (4.00-5.40); RDW 13.9 % (11.5-14.5); WBC 5.6 10x3/uL (4.8-10.8)
[2019-04-21 14:42] LABS: APTT 34.1 SECONDS (22.8-39.4); INR 1.4 (0.85-1.17); PROTIME 16.6 SECONDS (11.6-15.0)
[2019-04-21 14:46] LABS: CALC OSMOLALITY 278 mosm/kg (275-300); CALCIUM 9.2 mg/dL (8.5-10.1); CHLORIDE - SERUM 101 mmol/L (98-107); CREATININE - SERUM 0.9 mg/dL (0.6-1.3); GLUCOSE 101 mg/dL (74-106); POTASSIUM - SERUM 4.1 mmol/L (3.5-5.1); SODIUM 138 mmol/L (136-145); UREA NITROGEN 21 mg/dL (7-18); eGFR NON AFRICAN AMERICAN 69 mL/min (90-120)
[2019-04-21 15:02] LABS: ALBUMIN 4.4 g/dL (3.4-5.0); ALKALINE PHOSPHATASE 80 U/L (46-116); ALT (SGPT) 22 U/L (10-68); BILIRUBIN - TOTAL 0.56 mg/dL (0.2-1.3); CKMB 0.2 U/L (0.0-3.6); CREATINE KINASE 41 UL (21-215); MAGNESIUM - SERUM 2.2 mg/dL (1.8-2.4); PROTEIN - SERUM 7.9 g/dL (6.4-8.2)
[2019-04-21 15:04] LABS: TROPONIN-I < 0.017 ng/mL (0.000-0.060)
[2019-04-21 15:34] VITALS: BP 124/84
== END 2019-04-21 15:34 | disposition home or self-care (01) ==
LOC: D.ER 13:40
PROVIDERS: Family Medicine
DX: R07.89 Other chest pain (principal); Z86.73 Personal history of transient ischemic attack (TIA), and cerebral infarction without residual deficits; I10 Essential (primary) hypertension; I25.119 Atherosclerotic heart disease of native coronary artery with unspecified angina pectoris

== ENCOUNTER 2019-05-08 17:30 | Emergency (ER) | payer MEDICARE, MEDICAID ==
[~2019-05-08] VITALS: Ht 152.4 cm; Wt 72.7 kg
[2019-05-08 17:50] VITALS: Ht 152.4 cm; Wt 72.7 kg
[2019-05-08 18:33] LABS: BASOPHILS 0.3 % (0-2); EOSINOPHILS 1.1 % (0-7); HEMATOCRIT 34.6 % (36.0-48.0); HEMOGLOBIN 11.5 g/dL (12-16); IMMATURE GRANULOCYTES 0.2 % (0-5); LYMPHOCYTES 22.2 % (15-50); MCH 31.8 pg (26.0-34.0); MCHC 33.2 g/dL (31.0-37.0); MCV 95.6 fL (80.0-100.0); MONOCYTES 5.5 % (2-11); NEUTROPHILS 70.7 % (40-80); PLATELET COUNT 349 10x3/uL (130-400); RBC 3.62 10x6/uL (4.00-5.40); RDW 14.8 % (11.5-14.5); WBC 6.4 10x3/uL (4.8-10.8)
[2019-05-08 18:48] LABS: APTT 27.3 SECONDS (22.8-39.4); PROTIME 13.1 SECONDS (11.6-15.0)
[2019-05-08 18:56] LABS: CALCIUM 8.7 mg/dL (8.5-10.1); CARBON DIOXIDE 31.2 mmol/L (21.0-32.0); POTASSIUM - SERUM 3.2 mmol/L (3.5-5.1)
[2019-05-08 19:02] LABS: ALBUMIN 3.9 g/dL (3.4-5.0); BILIRUBIN - TOTAL 0.36 mg/dL (0.2-1.3); PROTEIN - SERUM 7.3 g/dL (6.4-8.2)
[2019-05-08 19:45] VITALS: BP 135/64
[2019-05-08 19:50] LABS: APPEARANCE CLEAR (CLEAR); COLOR YELLOW (YELLOW); GLUCOSE NEGATIVE (NEGATIVE); KETONE NEGATIVE (NEGATIVE); NITRITE POSITIVE (NEGATIVE); PROTEIN NEGATIVE (NEGATIVE)
[2019-05-08 19:51] LABS: BACTERIA MANY /hpf (NEGATIVE); BILIRUBIN NEGATIVE (NEGATIVE); EPITHELIAL CELLS 0-5 /hpf (0-5); RED CELLS - URINE OCC /hpf (0-5); UROBILINOGEN NORMAL (NORMAL); WHITE CELLS - URINE 0-5 /hpf (NEGATIVE)
== END 2019-05-08 19:45 | disposition home or self-care (01) ==
LOC: D.ER 17:30
PROVIDERS: Family Medicine
DX: S16.1XXA Strain of muscle, fascia and tendon at neck level, initial encounter (principal); S39.012A Strain of muscle, fascia and tendon of lower back, initial encounter; S00.93XA Contusion of unspecified part of head, initial encounter; W19.XXXA Unspecified fall, initial encounter; Y93.9 Activity, unspecified; Y92.9 Unspecified place or not applicable; I10 Essential (primary) hypertension; I25.119 Atherosclerotic heart disease of native coronary artery with unspecified angina pectoris; I73.9 Peripheral vascular disease, unspecified; J44.9 Chronic obstructive pulmonary disease, unspecified; Z86.73 Personal history of transient ischemic attack (TIA), and cerebral infarction without residual deficits

== ENCOUNTER 2019-05-14 15:09 | Emergency (ER) | payer MEDICARE, MEDICAID ==
[~2019-05-14] VITALS: Ht 152.4 cm; Wt 72.7 kg
[2019-05-14 15:15] VITALS: Ht 152.4 cm; Wt 72.7 kg
[2019-05-14 15:38] LABS: APPEARANCE CLEAR (CLEAR); BILIRUBIN NEGATIVE (NEGATIVE); COLOR YELLOW (YELLOW); GLUCOSE NEGATIVE (NEGATIVE); KETONE NEGATIVE (NEGATIVE); NITRITE NEGATIVE (NEGATIVE); PROTEIN NEGATIVE (NEGATIVE); SPECIFIC GRAVITY 1.025 (1.005-1.020); UROBILINOGEN NORMAL (NORMAL)
[2019-05-14 16:04] LABS: BASOPHILS 0.6 % (0-2); EOSINOPHILS 2.3 % (0-7); HEMATOCRIT 38.8 % (36.0-48.0); HEMOGLOBIN 12.8 g/dL (12-16); IMMATURE GRANULOCYTES 0.6 % (0-5); LYMPHOCYTES 21.9 % (15-50); MCH 31.4 pg (26.0-34.0); MCV 95.1 fL (80.0-100.0); MEAN PLATELET VOLUME 9.9 fL (7.4-10.4); MONOCYTES 7.5 % (2-11); NEUTROPHILS 67.1 % (40-80); PLATELET COUNT 355 10x3/uL (130-400); RBC 4.08 10x6/uL (4.00-5.40); RDW 14.8 % (11.5-14.5); WBC 6.5 10x3/uL (4.8-10.8)
[2019-05-14 16:28] LABS: CALC OSMOLALITY 289 mosm/kg (275-300); CALCIUM 8.7 mg/dL (8.5-10.1); CARBON DIOXIDE 30.7 mmol/L (21.0-32.0); CHLORIDE - SERUM 102 mmol/L (98-107); GLUCOSE 105 mg/dL (74-106); POTASSIUM - SERUM 4.8 mmol/L (3.5-5.1); SODIUM 140 mmol/L (136-145); UREA NITROGEN 43 mg/dL (7-18); eGFR NON AFRICAN AMERICAN 61 mL/min (90-120)
[2019-05-14 16:36] LABS: ALBUMIN 3.9 g/dL (3.4-5.0); ALKALINE PHOSPHATASE 85 U/L (46-116); ALT (SGPT) 24 U/L (10-68); AMYLASE - SERUM 65 U/L (25-115); BILIRUBIN - TOTAL 0.24 mg/dL (0.2-1.3); LIPASE 133 U/L (73-393); PROTEIN - SERUM 7.6 g/dL (6.4-8.2)
[2019-05-14 16:37] LABS: TROPONIN-I < 0.017 ng/mL (0.000-0.060)
[2019-05-14] MEDS ORDERED: ZOFRAN ODT4 MG/UDTAB PO (18:16)
[2019-05-14 19:24] VITALS: BP 131/76
== END 2019-05-14 19:24 | disposition home or self-care (01) ==
LOC: D.ER 15:09
PROVIDERS: Family Medicine
DX: R10.13 Epigastric pain (principal); R11.2 Nausea with vomiting, unspecified; Z86.73 Personal history of transient ischemic attack (TIA), and cerebral infarction without residual deficits; I10 Essential (primary) hypertension; I25.119 Atherosclerotic heart disease of native coronary artery with unspecified angina pectoris; I73.9 Peripheral vascular disease, unspecified; J44.9 Chronic obstructive pulmonary disease, unspecified; K21.9 Gastro-esophageal reflux disease without esophagitis

== ENCOUNTER 2019-05-28 18:46 | Emergency (ER) | payer MEDICARE, MEDICAID ==
[~2019-05-28] VITALS: Ht 152.4 cm; Wt 77.3 kg
[2019-05-28 19:00] VITALS: BP 172/106; Ht 152.4 cm; Wt 77.3 kg
[2019-06-02] MEDS ORDERED: PROVENTIL/2.5 MG/3 M INH (19:22)
[2019-06-02] MEDS ORDERED: ZPAK PO (19:23)
[2019-06-02] MEDS ORDERED: MEDROL DOSE PACK4 MG PO (19:24)
== END 2019-05-28 20:31 | disposition left against medical advice (07) ==
LOC: D.ER 18:46
DX: R07.9 Chest pain, unspecified (principal); R05 Cough

== ENCOUNTER 2019-06-28 17:57 | Emergency (ER) | payer MEDICARE, MEDICAID ==
[~2019-06-28] VITALS: Ht 152.4 cm; Wt 77.3 kg
[~2019-06-28 17:57] MED LIST changes: +PROVENTIL/2.5 MG/3 M INH; +ZPAK PO
[2019-06-28 18:06] VITALS: Ht 152.4 cm; Wt 77.3 kg
[2019-06-28 18:57] LABS: BASOPHILS 0.3 % (0-2); EOSINOPHILS 0.8 % (0-7); HEMATOCRIT 38.1 % (36.0-48.0); HEMOGLOBIN 13.1 g/dL (12-16); IMMATURE GRANULOCYTES 0.2 % (0-5); LYMPHOCYTES 30.4 % (15-50); MCH 31.5 pg (26.0-34.0); MCHC 34.4 g/dL (31.0-37.0); MCV 91.6 fL (80.0-100.0); MEAN PLATELET VOLUME 9.3 fL (7.4-10.4); MONOCYTES 6.6 % (2-11); NEUTROPHILS 61.7 % (40-80); PLATELET COUNT 325 10x3/uL (130-400); RBC 4.16 10x6/uL (4.00-5.40); RDW 14.1 % (11.5-14.5); WBC 6.6 10x3/uL (4.8-10.8)
[2019-06-28 19:24] LABS: ALBUMIN 3.9 g/dL (3.4-5.0); ALKALINE PHOSPHATASE 74 U/L (30-120); ALT (SGPT) 16 U/L (10-68); BILIRUBIN - TOTAL 0.74 mg/dL (0.2-1.3); CALC OSMOLALITY 285 mosm/kg (275-300); CALCIUM 9.2 mg/dL (8.5-10.1); CARBON DIOXIDE 27.6 mmol/L (21.0-32.0); CHLORIDE - SERUM 105 mmol/L (98-107); CKMB 0.2 U/L (0.0-3.6); CREATINE KINASE 39 UL (21-215); CREATININE - SERUM 0.8 mg/dL (0.6-1.3); GLUCOSE 96 mg/dL (74-106); PROTEIN - SERUM 7.6 g/dL (6.4-8.2); SODIUM 142 mmol/L (136-145); UREA NITROGEN 20 mg/dL (7-18); eGFR NON AFRICAN AMERICAN 78 mL/min (90-120)
[2019-06-28 19:27] LABS: POTASSIUM - SERUM 2.9 mmol/L (3.5-5.1); TROPONIN-I < 0.017 ng/mL (0.000-0.060)
[2019-06-28 20:57] LABS: CKMB 0.2 U/L (0.0-3.6); TROPONIN-I < 0.017 ng/mL (0.000-0.060)
[2019-06-28 22:27] VITALS: BP 140/70
== END 2019-06-28 22:28 | disposition home or self-care (01) ==
LOC: D.ER 17:57
PROVIDERS: Emergency Medicine; Family Medicine
DX: R07.9 Chest pain, unspecified (principal); I10 Essential (primary) hypertension; R01.1 Cardiac murmur, unspecified; M54.9 Dorsalgia, unspecified; J44.9 Chronic obstructive pulmonary disease, unspecified

== ENCOUNTER 2019-11-11 18:30 | Observation (INO) | payer MEDICARE, MEDICAID ==
[~2019-11-11] VITALS: Ht 152.4 cm; Wt 77.3 kg
[2019-11-11] MEDS ORDERED: SEROQUEL25 MG PO (18:46)
[2019-11-11 19:08] VITALS: BP 149/92
[2019-11-11 19:28] LABS: HEMATOCRIT 39.8 % (36.0-48.0); HEMOGLOBIN 13.2 g/dL (12-16); LYMPHOCYTES 26.5 % (15-50); MCHC 33.2 g/dL (31.0-37.0); MCV 93.4 fL (80.0-100.0); MEAN PLATELET VOLUME 8.9 fL (7.4-10.4); NEUTROPHILS 65.5 % (40-80); PLATELET COUNT 365 10x3/uL (130-400); RBC 4.26 10x6/uL (4.00-5.40); RDW 13.9 % (11.5-14.5); WBC 7.6 10x3/uL (4.8-10.8)
[2019-11-11 19:30] LABS: INR 1.14 (0.85-1.17); PROTIME 14.6 SECONDS (11.6-15.0)
[2019-11-11 19:41] LABS: CALC OSMOLALITY 277 mosm/kg (275-300); CALCIUM 8.9 mg/dL (8.5-10.1); CARBON DIOXIDE 28.8 mmol/L (21.0-32.0); CHLORIDE - SERUM 103 mmol/L (98-107); CREATININE - SERUM 1.1 mg/dL (0.6-1.3); GLUCOSE 91 mg/dL (74-106); POTASSIUM - SERUM 3.9 mmol/L (3.5-5.1); SODIUM 138 mmol/L (136-145); UREA NITROGEN 19 mg/dL (7-18); eGFR NON AFRICAN AMERICAN 54 mL/min (90-120)
[2019-11-11 19:46] LABS: ALBUMIN 4.1 g/dL (3.4-5.0); ALKALINE PHOSPHATASE 93 U/L (30-120); ALT (SGPT) 21 U/L (10-68); BILIRUBIN - TOTAL 0.45 mg/dL (0.2-1.3); CKMB 0.4 U/L (0.0-3.6); CREATINE KINASE 57 UL (21-215); MAGNESIUM - SERUM 2.4 mg/dL (1.8-2.4); PROTEIN - SERUM 7.6 g/dL (6.4-8.2)
[2019-11-11 19:47] LABS: TROPONIN-I < 0.017 ng/mL (0.000-0.060)
--- NOTE | 2019-11-11 20:53 | NUR ---
PATIENT IN WITH C/O MID CHEST PAIN THAT STARTED APPROX 2 HR MANAGER FINANCIAL REPORTING, HAS HAD SIMILAR EPISODES IN THE PAST, STATES SHE IS OUT OF ASA AND COULDN'T FIND HER NITRO. 325MG ASA GIVEN NITRO GIVEN WITH SOME RELEIF BROUGHT PAIN DOWN TO 7/10. STATES HER AIR CONDITION HAS BEEN OUT SINCE TUESDAY AND FEELS OVERHEATED. CALL LIGHT WITHIN REACH.
--- NOTE | 2019-11-11 22:00 | NUR ---
PATIENT STILL C/O CHEST PAIN, MD NOTIFIED, NEW MEDICATION OBTAINED AND GIVEN PER ORDER, DAUGHTER TO BEDSIDE. MED CHEST PAIN 12/09
[2019-11-11 22:01] VITALS: BP 140/88
[2019-11-11 22:12] VITALS: BP 137/82
--- NOTE | 2019-11-11 22:15 | NUR ---
STATES PAIN IS BETTER 6/10 MD TO BEDSIDE.
--- NOTE | 2019-11-12 01:00 | NUR ---
PT ARRIVED TO FLOOR VIA WHEELCHAIR FROM ER A/O X4. NO S/S OF DISTRESS AT THIS TIME. VITALS STABLE RR EVEN AND UNLABORED. PT COMPLAINS OF 7/10 CHEST PAIN. PRN MEDICATION GIVEN. PT DENIES ANY FURTHER NEEDS AT THIS TIME. BED LOW CALL LIGHT WITHIN REACH. WILL CONTINUE TO MONITOR.
[2019-11-12 01:52] LABS: CKMB 0.1 U/L (0.0-3.6); CREATINE KINASE 53 UL (21-215); TROPONIN-I < 0.017 ng/mL (0.000-0.060)
[2019-11-12 04:29] VITALS: BP 97/52
--- NOTE | 2019-11-12 06:29 | NUR ---
ADMISSION ASSESSMENT PER RN COMPLETED AT THIS TIME. PT RESTING. NO DISTRESS. CALL LIGHT IN REACH.
[2019-11-12 06:35] VITALS: BP 97/52; Ht 152.4 cm; Wt 77.3 kg
[2019-11-12 07:53] LABS: CKMB 0.2 U/L (0.0-3.6); CREATINE KINASE 45 UL (21-215); TROPONIN-I < 0.017 ng/mL (0.000-0.060)
[2019-11-12 09:00] VITALS: BP 100/61
--- NOTE | 2019-11-12 09:03 | NUR ---
AM MEDS GIVEN WITH A SIP OF WATER. ALSO GAVE 4MG OF MORPHINE FOR PAIN LEVEL OF 9/10 AND 4MG OF ZOFRAN FOR NAUSEA. PT DENIES ANY OTHER NEEDS AT THIS TIME. PT A/O X4, RESP EVEN AND NONLABORED ON RA. LT FA IV SL. CALL LIGHT IN REACH, NAD NOTED, WILL CONTINUE PLAN OF CARE.
[2019-11-12 12:00] VITALS: BP 107/61
--- NOTE | 2019-11-12 13:14 | NUR ---
4MG OF MORPHINE GIVEN FOR PAIN LEVEL OF 9/10. PT DENIES ANY OTHER NEEDS AT THIS TIME. CALL LIGHT IN REACH, NAD NOTED,WILLC ONTINUE TO MONITOR.
--- NOTE | 2019-11-12 17:29 | NUR ---
PT LEFT UNIT VIA WHEELCHAIR, WITH ALL BELONGINGS. NAD NOTED.
== END 2019-11-12 17:30 | disposition home or self-care (01) ==
LOC: D.ER 18:30 → OBSVTIME 22:25 → D.M2 22:25
PROVIDERS: Emergency Medicine; Family Medicine; ADMIT Family Medicine Adult Medicine; ATTEND Family Medicine Adult Medicine
DX: I20.0 Unstable angina (principal); I10 Essential (primary) hypertension; J44.9 Chronic obstructive pulmonary disease, unspecified; F17.203 Nicotine dependence unspecified, with withdrawal; K21.9 Gastro-esophageal reflux disease without esophagitis; F31.9 Bipolar disorder, unspecified; F41.8 Other specified anxiety disorders; G89.29 Other chronic pain

== ENCOUNTER 2019-12-12 20:25 | Emergency (ER) | payer MEDICARE, MEDICAID ==
[~2019-12-12] VITALS: Ht 152.4 cm; Wt 77.3 kg
[~2019-12-12 20:25] MED LIST changes: +SEROQUEL25 MG PO
[2019-12-12 20:43] VITALS: BP 151/85; Ht 152.4 cm; Wt 77.3 kg
[2019-12-12] MEDS ORDERED: CYCLOBENZAPRINE10 MG PO (21:48)
== END 2019-12-12 22:34 | disposition home or self-care (01) ==
LOC: D.ER 20:25
DX: M54.5 Low back pain (principal); Z86.73 Personal history of transient ischemic attack (TIA), and cerebral infarction without residual deficits; I10 Essential (primary) hypertension; I25.2 Old myocardial infarction; J44.9 Chronic obstructive pulmonary disease, unspecified; K21.9 Gastro-esophageal reflux disease without esophagitis; Z72.0 Tobacco use; R42 Dizziness and giddiness

== ENCOUNTER 2019-12-28 20:22 | Emergency (ER) | payer MEDICARE, MEDICAID ==
[~2019-12-28] VITALS: Ht 152.4 cm; Wt 77.1 kg
[2019-12-28 21:31] VITALS: BP 136/86; Ht 152.4 cm; Wt 77.1 kg
[2019-12-29] MEDS ORDERED: MEDROL DOSE PACK4 MG PO (08:17)
[2019-12-29] MEDS ORDERED: ACETAMINOPHEN500 M1 PO (08:17)
[2019-12-29] MEDS ORDERED: CYCLOBENZAPRINE10 MG PO (08:17)
== END 2019-12-29 07:58 | disposition left against medical advice (07) ==
LOC: D.ER 20:22
DX: S69.91XA Unspecified injury of right wrist, hand and finger(s), initial encounter (principal)

== ENCOUNTER 2019-12-29 06:15 | Emergency (ER) | payer MEDICARE, MEDICAID ==
[~2019-12-29] VITALS: Ht 152.4 cm; Wt 85.9 kg
[2019-12-29 06:24] VITALS: BP 135/87; Ht 152.4 cm; Wt 85.9 kg
[2019-12-29] MEDS ORDERED: ACETAMINOPHEN500 M1 PO (08:17)
[2019-12-29] MEDS ORDERED: MEDROL DOSE PACK4 MG PO (08:17)
[2019-12-29] MEDS ORDERED: CYCLOBENZAPRINE10 MG PO (08:17)
== END 2019-12-29 08:43 | disposition home or self-care (01) ==
LOC: D.ER 06:15
DX: M79.18 Myalgia, other site (principal); M25.531 Pain in right wrist; S63.501A Unspecified sprain of right wrist, initial encounter; S63.91XA Sprain of unspecified part of right wrist and hand, initial encounter; T14.8XXA Other injury of unspecified body region, initial encounter; W01.0XXA Fall on same level from slipping, tripping and stumbling without subsequent striking against object, initial encounter; Y93.9 Activity, unspecified; Y92.9 Unspecified place or not applicable; Z86.73 Personal history of transient ischemic attack (TIA), and cerebral infarction without residual deficits; I10 Essential (primary) hypertension; I25.2 Old myocardial infarction; J44.9 Chronic obstructive pulmonary disease, unspecified; K21.9 Gastro-esophageal reflux disease without esophagitis; Z72.0 Tobacco use

== ENCOUNTER 2020-01-04 12:39 | Emergency (ER) | payer MEDICARE, MEDICAID ==
[~2020-01-04] VITALS: Ht 152.4 cm; Wt 77.3 kg
[2020-01-04 12:47] VITALS: Ht 152.4 cm; Wt 77.3 kg
[2020-01-04 13:43] LABS: APTT 40.9 SECONDS (22.8-39.4); INR 1.51 (0.85-1.17); PROTIME 18.1 SECONDS (11.6-15.0)
[2020-01-04 13:56] LABS: ALBUMIN 4.1 g/dL (3.4-5.0); ALKALINE PHOSPHATASE 90 U/L (30-120); ALT (SGPT) 24 U/L (10-68); BILIRUBIN - TOTAL 0.78 mg/dL (0.2-1.3); CALC OSMOLALITY 281 mosm/kg (275-300); CARBON DIOXIDE 31.3 mmol/L (21.0-32.0); CHLORIDE - SERUM 102 mmol/L (98-107); CKMB 0.2 U/L (0.0-3.6); CREATINE KINASE 57 UL (21-215); GLUCOSE 96 mg/dL (74-106); PROTEIN - SERUM 7.4 g/dL (6.4-8.2); SODIUM 141 mmol/L (136-145); UREA NITROGEN 14 mg/dL (7-18); eGFR NON AFRICAN AMERICAN 61 mL/min (90-120)
[2020-01-04 13:57] LABS: TROPONIN-I < 0.017 ng/mL (0.000-0.060)
[2020-01-04 13:59] LABS: POTASSIUM - SERUM 2.8 mmol/L (3.5-5.1)
[2020-01-04 14:04] LABS: BASOPHILS 0 % (0-2); EOSINOPHILS 1.4 % (0-7); HEMATOCRIT 38.4 % (36.0-48.0); LYMPHOCYTES 20.7 % (15-50); MCHC 33.9 g/dL (31.0-37.0); MCV 91.4 fL (80.0-100.0); MEAN PLATELET VOLUME 9.1 fL (7.4-10.4); MONOCYTES 5.5 % (2-11); NEUTROPHILS 72.4 % (40-80); PLATELET COUNT 415 10x3/uL (130-400); RDW 14.4 % (11.5-14.5); WBC 6.4 10x3/uL (4.8-10.8)
[2020-01-04] MEDS ORDERED: K-DUR20 MEQ PO (14:14)
[2020-01-04 14:42] VITALS: BP 145/94
== END 2020-01-04 15:11 | disposition home or self-care (01) ==
LOC: D.ER 12:39
DX: E87.6 Hypokalemia (principal); R07.9 Chest pain, unspecified; I10 Essential (primary) hypertension; I25.2 Old myocardial infarction; I20.9 Angina pectoris, unspecified; J44.9 Chronic obstructive pulmonary disease, unspecified; K21.9 Gastro-esophageal reflux disease without esophagitis

== ENCOUNTER 2020-01-14 10:30 | Emergency (ER) | payer MEDICARE, MEDICAID ==
[~2020-01-14] VITALS: Ht 152.4 cm; Wt 82.3 kg
[~2020-01-14 10:30] MED LIST changes: +K-DUR20 MEQ PO
[2020-01-14 10:37] VITALS: Ht 152.4 cm; Wt 82.3 kg
[2020-01-14 11:17] LABS: BASOPHILS 0.1 % (0-2); EOSINOPHILS 0.5 % (0-7); HEMATOCRIT 40.2 % (36.0-48.0); HEMOGLOBIN 13.4 g/dL (12-16); IMMATURE GRANULOCYTES 0.1 % (0-5); LYMPHOCYTES 20.7 % (15-50); MCH 31.2 pg (26.0-34.0); MCHC 33.3 g/dL (31.0-37.0); MCV 93.7 fL (80.0-100.0); MEAN PLATELET VOLUME 9.1 fL (7.4-10.4); MONOCYTES 6.4 % (2-11); NEUTROPHILS 72.2 % (40-80); PLATELET COUNT 339 10x3/uL (130-400); RBC 4.29 10x6/uL (4.00-5.40); RDW 14.2 % (11.5-14.5); WBC 7.5 10x3/uL (4.8-10.8)
[2020-01-14 11:22] LABS: CALC OSMOLALITY 275 mosm/kg (275-300); CALCIUM 8.8 mg/dL (8.5-10.1); CARBON DIOXIDE 27.3 mmol/L (21.0-32.0); CHLORIDE - SERUM 103 mmol/L (98-107); GLUCOSE 121 mg/dL (74-106); POTASSIUM - SERUM 3.5 mmol/L (3.5-5.1); SODIUM 136 mmol/L (136-145); UREA NITROGEN 22 mg/dL (7-18); eGFR NON AFRICAN AMERICAN 61 mL/min (90-120)
[2020-01-14 11:24] LABS: APTT 33.9 SECONDS (22.8-39.4); INR 1.4 (0.85-1.17); PROTIME 17.1 SECONDS (11.6-15.0)
[2020-01-14 11:37] LABS: ALBUMIN 4.1 g/dL (3.4-5.0); ALKALINE PHOSPHATASE 80 U/L (30-120); ALT (SGPT) 31 U/L (10-68); BILIRUBIN - TOTAL 1.07 mg/dL (0.2-1.3); CKMB 0.5 U/L (0.0-3.6); CREATINE KINASE 63 UL (21-215); PRO BNP 15 pg/mL (0-125); PROTEIN - SERUM 7.4 g/dL (6.4-8.2)
[2020-01-14 11:38] LABS: TROPONIN-I < 0.017 ng/mL (0.000-0.060)
[2020-01-14 14:04] VITALS: BP 130/98
== END 2020-01-14 14:04 | disposition home or self-care (01) ==
LOC: D.ER 10:30
PROVIDERS: Family Medicine
DX: R06.02 Shortness of breath (principal); I10 Essential (primary) hypertension; Z86.73 Personal history of transient ischemic attack (TIA), and cerebral infarction without residual deficits; I25.2 Old myocardial infarction; J44.9 Chronic obstructive pulmonary disease, unspecified; K21.9 Gastro-esophageal reflux disease without esophagitis; Z72.0 Tobacco use

== ENCOUNTER 2020-08-09 13:04 | Observation (INO) | payer MEDICARE, MEDICAID ==
[~2020-08-09] VITALS: Ht 152.4 cm; Wt 86.4 kg
--- NOTE | ~2020-08-09 | HEMODYNAMI ---
PATIENT:JJ FIELD MEDICAL RECORD: [id number] : 64 LOCATION:D. D.2116 ADMISSION DATE: 08/09/20 Generatedon:110:41 Patient name: JJ FIELD Patient #: [id number] SSN: [id number] : 1960 Date of study: 08/11/2020 Page: Of Hemodynamic Procedure Report Patient Data Patient Demographics Procedure consent was obtained First Name: JJ Gender: Female Last Name: EMIR : 1960 Middle Initial: K Age: 59 year(s) Patient #: [id number] Race: Ethnicity: or SSN: [id number] Additional ID: [id number] Contact details Address: [address] [place] [address] State: [place] City: [place] Zip code: [address] Past Medical History Allergies Allergen Reaction Date Comments Reported Other allergy 01/29/2018 see chrt Other allergy 08/11/2020 see chart Admission Admission Data Admission Date: 08/09/2020 Admission Time: 15:40 Admit Source: Other Room #: D.2116 Lab Results Lab Result Date: 08/11/2020 Lab Result Time: 0:00 Biochemistry Name Units Result Min Max BUN mg/dl 20 --(----)*- 7 18 Creatinine mg/dl 0.9 --(-*--)-- 0.6 1.3 CBC Name Units Result Min Max Hemoglobin g/dl 9.8 *-(----)-- 13.5 17.5 Procedure Procedure Types Cath Procedure Diagnostic Procedure LHC LH w/Coronaries Sedation Charges Moderate Sedation 10-24 minutes Procedure Description Procedure Date Procedure Date: 08/11/2020 Procedure Start Time: 10:31 Procedure End Time: 10:38 Procedure Staff Name Function Ирина Godoy RT Monitor Karlie Mora RT Scrub Jason Menchaca RN Nurse Eloy Claire MD Performing Physician Procedure Data Cath Procedure Fluoroscopy Diagnostic fluoroscopy Total fluoroscopy Time: 0.8 time: 0.8 min min Diagnostic fluoroscopy Total fluoroscopy dose: 342 dose: 342 mGy mGy Contrast Material Contrast Material Type Amount (ml) Isovue 370 45 Entry Location Entry Primary Successful Side Size Upsize Upsize Entry Closure Succes sful Closure Location (Fr) 1 (Fr) 2 (Fr) Remarks Device Remarks Femoral Right 5 Fr Exoseal artery Estimated blood loss: 5 ml Diagnostic catheters Device Type Used For End Catheter Placement MULTIPACK JL 4.0 5Fr Procedure catheter MULTIPACK 3DRC 5Fr Procedure catheter MULTIPACK Pigtail 5 Fr Procedure catheter Procedure Complications No complications Procedure Medications Medication Administration Route Dosage Oxygen etCO2 Nasal cannula 2 l/min Lidocaine 2% added to field 20 Heparin Flush Bag added to field 2 bags (1000units/500ml NS) 0.9% NaCl I.V. 100 ml/hr Versed I.V. 1 mg Fentanyl I.V. 50 mcg Versed I.V. 1 mg Fentanyl I.V. 50 mcg Hemodynamics Rest HGB: 9.8 (g/dl) Heart Rate: 86 (bpm) Pressure Samples Time Site Value (mmHg) Purpose Heart Use Rate(bpm) 10:34 LV 83/3,9 Snapshot 76 Gradients Valve Time Site Site Mean SEP/DFP Peak To Heart Use 1 2 (mmHg) (sec/min) Peak Rate (mmHg) (bpm) Aortic 10:35 LV AO 75 Snapshots Pre Cath Intra NCS Post Cath Vital Signs Time Heart Resp SPO2 etCO2 NIBP (mmHg) Rhythm Pain Sedation Rate (ipm) (%) (mmHg) Status Level (bpm) 10:24:32 87 21 94 0 136/80(110) NSR 0 (11) 10(A) , No pain 10:28:50 71 19 96 41 116/67(96) NSR 0 (11) 10(A) , No pain 10:32:58 72 18 88 22.4 106/63(90) NSR 0 (11) 9(A) , No pain 10:37:10 75 15 94 21.6 111/66(94) NSR 0 (11) 10(A) , No pain Medications Time Medication Route Dose Verified Delivered Reason Notes Eff ectiveness by by 10:27:03 Oxygen etCO2 2 Eloy Gomez used for Nasal l/min St Tonny Menchaca RN procedure cannula 10:27:10 Lidocaine 2% added 20ml Eloy Eloy for local to vial [facility] anesthetic field MD TYLER 10:27:15 Heparin Flush added 2 Eloy Eloy used for Bag to bags [facility] procedure (1000units/500ml field MD TYLER NS) 10:27:24 0.9% NaCl I.V. 100 Eloy Gomez Per ml/hr Alethea Bernarda RN physician 10:27:31 Versed I.V. 1 mg Eloy Buffie for St Tonny Menchaca RN sedation 10:27:36 Fentanyl I.V. 50 Eloy Buffie for mcg St Tonny Menchaca RN sedation 10:34:24 Versed I.V. 1 mg Eloy Roseie for Reading Bernarda RN sedation 10:34:27 Fentanyl I.V. 50 Eloy Buffie for [facility] St Tonny Menchaca RN sedation Procedure Log Time Note 9:51:15 Informed consent obtained and on chart 9:52:19 Lab Result : Hemoglobin 9.8 g/dl 9:52:19 Lab Result : Creatinine 0.9 mg/dl 9:52:19 Lab Result : BUN 20 mg/dl 9:52:25 Diagnostic Cath Status : Urgent 9:53:44 Procedure Status Urgent Heart Cath (IP). 9:53:47 Time tracking: Regular hours (M-F 7:00 - 5:00) 9:53:52 Plan of Care:Hemodynamics will remain stable., Cardiac rhythm will remain stable., Comfort level will be maintained., Respiratory function will remain adequate., Patient/ family verbilizes understanding of procedure., Procedure tolerated without complication., Recovers from procedure without complications.. 10:04:09 Admit Source: Other 10:04:12 ACC Patient presents with Unstable Angina CCS Anginal Class 2--Slight limitation of ordinary activity. 10:04:18 Lab results completed and on chart. 10:04:21 Stress Test: no; N/A ? 10:04:23 Alarms reviewed by R. N. 10:05:18 Karlie Mora RT(R) sent for patient. Start room use. 10:20:00 Patient received from Med II to CCL 1 Alert and oriented. Tansferred to table in Supine position. 10:23:19 Warm blankets applied, and radha hugger turned on for patient comfort. 10:23:19 Correct patient and procedure confirmed by team. 10:23:20 ECG and BP/O2 sat monitors applied to patient. 10:23:21 Vital chart was started 10:23:22 Full Disclosure recording started 10:23:49 H&P Date Dictated: 08/10/2020 Within 30 days and on chart.. 10:23:51 Pre-procedure instructions explained to patient. 10:23:51 Pre-op teaching completed and patient verbalized understanding. 10:23:53 Family unavailable. 10:23:55 Patient NPO since Midnight. 10:24:04 Patient allergic to Other allergysee chart 10:24:09 Is the patient allergic to Iodine/contrast media? No. 10:24:10 Was the patient premedicated? Yes 10:24:11 Is patient on blood thinner?Yes 10:24:14 ACC The patient was administered the following blood thiners within the last 24 hours: Xarelto 10:24:16 Patient diabetic? No. 10:24:17 ----Pre-sedation anethsthesia assessment.---- 10:24:21 Previous problem with sedation/anesthesia? No ? 10:24:22 Snore? Yes 10:24:23 Sleep apnea? Unknown 10:24:25 Deviated septum? No 10:24:26 Opens mouth fully? Yes 10:24:27 Sticks out tongue? Yes 10:24:30 Airway obstruction? Yes COPD 10:24:34 Dentures? No ? 10:24:39 Pre procedure: right dorsailis pedis pulse 1+ Palpable, but thready & weak; easily obliterated 10:24:41 Patient pain scale 0/10 ?. 10:24:50 IV patent on arrival in left antecubital with 0.9% NaCl at [facility]. 10:24:56 Right groin area was prepped with chlora-prep and draped in sterile fashion 10:24:59 Use device set Femoral Dx 10:25:00 ACIST Syringe (43823) opened to sterile field. 10:25:02 Bag Decanter () opened to sterile field. 10:25:02 Medline Cath Pack ([id number]) opened to sterile field. 10:25:04 ACIST Hand Control (11170) opened to sterile field. 10:25:04 ACIST Manifold (78369) opened to sterile field. 10:25:05 DIAGNOSTIC Multipack 5Fr catheter set ([id number]) opened to sterile field. 10:25:06 Tegaderm 4 x 4 (1626W) opened to sterile field. 10:25:07 SHEATH 5FR Auburn ([id number]) opened to sterile field. 10:25:08 EMERALD Guide Wire (615-346) opened to sterile field. 10:25:56 Baseline sample Acquired. 10::08 Rhythm: sinus rhythm 10::54 --------ALL STOP TIME OUT------ 10::55 Final Timeout: patient, procedure, and site verified with staff and physician. All members of the team are in agreement. 10:26:57 Right groin site verified by team. 10:27:01 Fire Safety Assessment: A--An alcohol-based skin anteseptic being used preoperatively., C--Open oxygen or nitrous oxide is being used., D--An ESU, laser, or fiber-optic light is being used. 10:27:03 Oxygen 2 l/min etCO2 Nasal cannula was administered by Jason Menchaca RN; used for procedure; Verbal order read back and verified. 10:27:07 Physical assessment completed. ASA score P 2 - A patient with mild systemic disease as per Eloy Claire MD. 10:27:10 Lidocaine 2% 20ml vial added to field was administered by Eloy Claire MD; for local anesthetic; Verbal order read back and verified. 10:27:10 2) 60-89 Mildly reduced kidney function, and other findings (as for stage 1) point to kidney disease. 10:27:14 Maximum allowable contrast dose (3.7 X eGFR X 0.75)189 ml. 10:27:15 Heparin Flush Bag (1000units/500ml NS) 2 bags added to field was administered by Eloy Claire MD; used for procedure; Verbal order read back and verified. 10:27:19 Sedation plan: IV Moderate Sedation Medication:Versed, Fentanyl 10:27:24 0.9% NaCl 100 ml/hr I.V. was administered by Jason Menchaca RN; Per physician; Verbal order read back and verified. 10:27:31 Versed 1 mg I.V. was administered by Jason Menchaca RN; for sedation; Verbal order read back and verified. 10:27:36 Fentanyl 50 mcg I.V. was administered by Jason Menchaca RN; for sedation; Verbal order read back and verified. 10:28:48 IV Extension Set opened to sterile field. 10:30:57 Procedure started. 10:31:00 Local anesthetic to right femoral artery with Lidocaine 2% by Ирина OBRIEN(R).INITIAL ACCESS ONLY 10:31:16 A 5 Fr sheath was inserted into the Right Femoral artery 10:31:26 A MULTIPACK JL 4.0 5Fr catheter was advanced over the wire and used for Procedure. 10:32:00 LCA angiography performed. 10:32:07 Injector settings: Ml/sec: 3, Volume: 6, 10:32:52 Catheter removed. 10:33:18 A MULTIPACK 3DRC 5Fr catheter was advanced over the wire and used for Procedure. 10:33:21 RCA angiography performed. 10:33:46 Injector settings: Ml/sec: 3, Volume: 6, 10:33:53 Catheter removed. 10:33:58 A MULTIPACK Pigtail 5 Fr catheter was advanced over the wire and used for Procedure. 10:34:04 LV gram done using FARMER 10:34:24 Versed 1 mg I.V. was administered by Jason Menchaca RN; for sedation; Verbal order read back and verified. 10:34:27 Fentanyl 50 mcg I.V. was administered by Jason Menchaca RN; for sedation; Verbal order read back and verified. 10:34:45 LV hemodynamics recorded. 10:34:48 Injector settings: Ml/sec: 5, Volume: 15, 10:35:02 EF : 55 % 10:35:05 Catheter removed. 10:35:14 EXOSEAL 5Fr (EX500) opened to sterile field. 10:35:24 Sheath removed intact; hemostasis achieved with Exoseal to the Right Femoral artery. 10:35:30 Fluoroscopy time 00.80 minutes. 10:35:37 Flurop Dose total: 342 10:35:37 Fluoroscopy dose: 342 mGy 10:35:42 Dose Area Product 39127 mGy/cm. 10:35:46 Contrast amount:Isovue 370 45ml. 10:35:48 Maximum allowable dose exceeded? No. 10:36:15 Post-op/insertion site Right Femoral artery dressed using a 4 x 4 and Tegaderm. 10:37:14 Procedure ended.(Physican Out) 10:37:25 Post right femoral artery:stable, soft, clean and dry 10:37:27 Post Procedure Pulses reassessed and unchanged 10:37:30 Post procedure: right dorsailis pedis pulse 1+ Palpable, but thready & weak; easily obliterated. 10:37:34 Post-procedure physical assessment completed. ASA score P 2 - A patient with mild systemic disease as per Eloy Claire MD. 10:37:37 Post procedure rhythm: unchanged. 10:37:40 Sharps counted by scrub and verified by R.N. 10:37:43 Estimated blood loss: 5 ml 10:37:44 Post procedure instruction explained to patient.Patient verbalizes understanding. 10:37:45 Patient needs reinforcement of post procedure teaching. 10:37:53 Procedure type changed to Cath procedure, Diagnostic procedure, LHC, C w/Coronaries, Sedation Charges, Moderate Sedation 10-24 minutes 10:38:06 Procedure and supply charges have been captured, reviewed, submitted and are correct. 10:38:10 Procedure Complication : No complications 10:38:13 Vital chart was stopped 10:38:16 [facility] Findings: mild to moderate CAD (<70%) 10:38:19 Operative report dictated upon procedure completion. 10:38:19 See physician's report for complete and final results. 10:38:24 Report given to [facility]. 10:38:28 Patient transfered to [facility] with Bed. 10:38:30 Procedure ended. 10:38:30 Full Disclosure recording stopped 10:38:38 End room use (Document Last) 10:40:32 End room use (Document Last) 10:40:46 End room use (Document Last) Device Usage Item Name Manufacture Quantity Catalog Hospital Part Current Minimal L ot# / Number Charge Number Stock Stock Serial# Code ACIST Acist 1 74595 [id number] 339562 851234 20 Syringe Medical (29789) Systems Inc Bag Microtek 1 772910 57358 787214 5 Decanter Medical Inc. () Medline Medline 1 [id number] 491678 11140 018094 5 Cath Pack ([id number]) ACIST Hand Acist 1 15754 600965 894286 616168 5 Control Medical (11380) Systems Inc ACIST Acist 1 93970 903155 273956 126274 5 Manifold Medical (46070) Systems Inc DIAGNOSTIC Cardinal 1 [id number] 016928 40473 993452 30 Multipack Health 5Fr catheter set (IF4449) Tegaderm 4 3M 1 1626W 908798 446852 971083 5 x 4 (1626W) SHEATH 5FR Terumo 1 CAT295 979908 414140 970912 5 Auburn (GDR884) EMERALD Cardinal 1 502455 360123 437820 244224 5 Guide Wire Health (502-449) IV Hospira 1 35614-97 187680 05535 076349 5 Extension Set MULTIPACK Cardinal 1 071493 5 JL 4.0 5Fr Health catheter MULTIPACK Cardinal 1 757752 5 3DRC 5Fr Health catheter MULTIPACK Cardinal 1 347899 5 Pigtail 5 Health Fr catheter EXOSEAL 5Fr Cardinal 1 EX500 520931 065551 840977 10 (EX500) Health Signature Audit [place] Stage Time Signature Unsigned Intra-Procedure 08/11/2020 Ирина Godoy 10:40:32 AM RT(R) Intra-Procedure 08/11/2020 Jason Menchaca RN 10:40:46 AM Intra-Procedure 08/11/2020 Eloy Day 10:41:00 AM Tonny TYLER [facility] [address] [facility] [place] [address]
[~2020-08-09 13:04] MED LIST changes: +ASPIRIN325 MG PO; +KEFLEX500 MG PO; +NAPROSYN500 MG PO; +STERAPRED 5MG 65 M1 PO; +TYLENOL #4 W/CO1 TAB PO
[2020-08-09 13:27] VITALS: BP 139/74
[2020-08-09 13:53] LABS: BASOPHILS 0.6 % (0-2); EOSINOPHILS 3.6 % (0-7); HEMATOCRIT 33.2 % (36.0-48.0); HEMOGLOBIN 10.9 g/dL (12-16); LYMPHOCYTE ABS# 1.57 10x3/uL (1.18-3.74); LYMPHOCYTES 31.8 % (15-50); MCH 28.3 pg (26.0-34.0); MCHC 32.8 g/dL (31.0-37.0); MCV 86.2 fL (80.0-100.0); MEAN PLATELET VOLUME 9.4 fL (7.4-10.4); MONOCYTES 7.1 % (2-11); NEUTROPHIL ABS# 2.81 10x3/uL (1.56-6.13); NEUTROPHILS 56.9 % (40-80); PLATELET COUNT 332 10x3/uL (130-400); RBC 3.85 10x6/uL (4.00-5.40); RDW 16.2 % (11.5-14.5); WBC 4.9 10x3/uL (4.8-10.8)
[2020-08-09 14:01] LABS: CALC OSMOLALITY 281 mosm/kg (275-300); CALCIUM 8.9 mg/dL (8.5-10.1); CARBON DIOXIDE 26.9 mmol/L (21.0-32.0); CHLORIDE - SERUM 106 mmol/L (98-107); GLUCOSE 113 mg/dL (74-106); POTASSIUM - SERUM 3.5 mmol/L (3.5-5.1); SODIUM 140 mmol/L (136-145); UREA NITROGEN 18 mg/dL (7-18); eGFR NON AFRICAN AMERICAN 61 mL/min (90-120)
[2020-08-09 14:12] LABS: INR 1.81 (0.85-1.17); PROTIME 19.5 SECONDS (11.6-15.0)
[2020-08-09 14:13] LABS: APTT 38.1 SECONDS (22.8-39.4)
[2020-08-09 14:15] LABS: ALBUMIN 3.6 g/dL (3.4-5.0); ALKALINE PHOSPHATASE 99 U/L (30-120); ALT (SGPT) 21 U/L (10-68); BILIRUBIN - TOTAL 0.42 mg/dL (0.2-1.3); CKMB 0.6 U/L (0.0-3.6); CREATINE KINASE 88 UL (21-215); MAGNESIUM - SERUM 1.9 mg/dL (1.8-2.4)
[2020-08-09 14:16] LABS: TROPONIN-I < 0.017 ng/mL (0.000-0.060)
[2020-08-09 16:11] LABS: CKMB 0.7 U/L (0.0-3.6); CREATINE KINASE 92 UL (21-215); TROPONIN-I < 0.017 ng/mL (0.000-0.060)
--- NOTE | 2020-08-09 16:46 | NUR ---
ATTEMPTED TO CALL REPORT, NURSE IS OFF THE FLOOR.
--- NOTE | 2020-08-09 17:07 | NUR ---
NAD, DENIES NEEDS.
--- NOTE | 2020-08-09 17:24 | NUR ---
REPORT GIVEN TO JANEY EVANS. REQUESTS 15 MINUTE DELAY IN TRANSFER DUE TO SITUATION ON THE FLOOR THAT REQUIRES SEVERAL STAFF MEMBERS. NOTIFIED TRANSPORT TO TRANSFER IN 15 MINUTES.
--- NOTE | 2020-08-09 17:52 | NUR ---
PT ARVIED VIA WHEELCHIAR TO ROOM. ALERT AND ORIENTED, UP WITHOUT ASSITANCE IN ROOM. ASKING FOR CHEST PAIN MEDICATION.
[2020-08-09] MEDS ORDERED: PROTONIX40 MG PO (17:53)
[2020-08-09] MEDS ORDERED: LIPITOR80 MG PO (17:53)
[2020-08-09 18:01] VITALS: BP 139/74; Ht 152.4 cm; Wt 86.4 kg
[2020-08-09 20:30] VITALS: BP 143/77
[2020-08-09 22:43] LABS: CKMB 0.5 U/L (0.0-3.6); CREATINE KINASE 88 UL (21-215)
[2020-08-09 22:45] LABS: TROPONIN-I < 0.017 ng/mL (0.000-0.060)
[2020-08-10 00:30] VITALS: BP 137/72
[2020-08-10 03:50] LABS: CKMB 0.5 U/L (0.0-3.6); CREATINE KINASE 78 UL (21-215); TROPONIN-I < 0.017 ng/mL (0.000-0.060)
[2020-08-10 04:30] VITALS: BP 109/64
[2020-08-10 06:24] LABS: BASOPHILS 0.4 % (0-2); EOSINOPHILS 3.8 % (0-7); IMMATURE GRANULOCYTES 0.2 % (0-5); LYMPHOCYTE ABS# 1.44 10x3/uL (1.18-3.74); LYMPHOCYTES 28.5 % (15-50); MCH 28.2 pg (26.0-34.0); MCHC 32.3 g/dL (31.0-37.0); MCV 87.3 fL (80.0-100.0); MEAN PLATELET VOLUME 9.8 fL (7.4-10.4); MONOCYTES 6.1 % (2-11); NEUTROPHIL ABS# 3.09 10x3/uL (1.56-6.13); PLATELET COUNT 344 10x3/uL (130-400); RBC 3.55 10x6/uL (4.00-5.40); RDW 16.2 % (11.5-14.5); WBC 5.1 10x3/uL (4.8-10.8)
[2020-08-10 07:00] LABS: ALBUMIN 3.3 g/dL (3.4-5.0); ANION GAP 11.4 mmol/L (8-16); BILIRUBIN - TOTAL 0.4 mg/dL (0.2-1.3); CARBON DIOXIDE 29.9 mmol/L (21.0-32.0); MAGNESIUM - SERUM 2.1 mg/dL (1.8-2.4); PROTEIN - SERUM 6.2 g/dL (6.4-8.2)
[2020-08-10 07:12] LABS: POTASSIUM - SERUM 4.3 mmol/L (3.5-5.1)
--- NOTE | 2020-08-10 07:22 | NUR ---
PT REQUESTS THAT HER DAUGHTER NOT BE GIVEN ANY INFO. STATES THE ONLY PERSON TO BE TALKED TO BE KEERTHI LINDSEY, FRIEND ([phone])
[2020-08-10 08:42] VITALS: BP 104/60
--- NOTE | 2020-08-10 09:13 | NUR ---
LT UPPER ARM IV LEAKING. D/C IV WITH CATHETER TIP INTACT. X1 ATTEMPT TO RT FA UNSUCCESSFUL. WILL HAVE CHARGE NURSE TRY TO START IV.
--- NOTE | 2020-08-10 09:15 | NUR ---
CALLED ADMISSIONS AND HAD STEFAN SANTANA REMOVED FROM PT'S CHART PRIMARY CONTACT, CHANGED TO KEERTHI LINDSEY.
--- NOTE | 2020-08-10 10:09 | NUR ---
NEW 2OG IV STARTED TO RT UPPER ARM BY ER NURSE. 3MG OF MORPHINE GIVEN AT THIS TIME FOR PAIN LEVEL OF 9/10. ALSO GAVE 4MG OF ZOFRAN FOR NAUSEA. PT DENIES ANY OTHER NEEDS AT THIS TIME. CALL LIGHT IN REACH.
[2020-08-10 11:10] LABS: LDL-HDL RATIO 0.6 ratio (1.5-3.5)
[2020-08-10 11:43] VITALS: BP 106/62
--- NOTE | 2020-08-10 14:04 | NUR ---
3MG OF MORPHINE GIVEN FOR PAIN LEVEL OF 9/10, ALSO GAVE 4MG OF ZOFRAN. AND PROVIDED PT WITH ICE CREAM. ALL NEEDS MET, CALL LIGHT IN REACH.
[2020-08-10 16:33] VITALS: BP 99/59
[2020-08-10 22:06] VITALS: BP 121/55
[2020-08-11 05:00] VITALS: BP 111/62
--- NOTE | 2020-08-11 05:00 | NUR ---
PT CLIPPED PER ORDER. STILL C/O OF CHEST PAIN THAT DECREASES WITH MORPHIE. NEW 20G PIV TO LEFT WRIST X1 ATTEMPT. NO DISTRESS. WILL CTM.
[2020-08-11 05:39] LABS: BASOPHILS 0.2 % (0-2); EOSINOPHILS 3.4 % (0-7); HEMOGLOBIN 9.8 g/dL (12-16); IMMATURE GRANULOCYTES 0.2 % (0-5); LYMPHOCYTE ABS# 1.48 10x3/uL (1.18-3.74); LYMPHOCYTES 29.3 % (15-50); MCH 28.1 pg (26.0-34.0); MCHC 31.6 g/dL (31.0-37.0); MCV 88.8 fL (80.0-100.0); MEAN PLATELET VOLUME 9.7 fL (7.4-10.4); MONOCYTES 7.9 % (2-11); NEUTROPHIL ABS# 2.98 10x3/uL (1.56-6.13); PLATELET COUNT 295 10x3/uL (130-400); RBC 3.49 10x6/uL (4.00-5.40); RDW 16.3 % (11.5-14.5); WBC 5.1 10x3/uL (4.8-10.8)
[2020-08-11 05:52] LABS: ALBUMIN 3.2 g/dL (3.4-5.0); ANION GAP 11.1 mmol/L (8-16); BILIRUBIN - TOTAL 0.29 mg/dL (0.2-1.3); CALCIUM 8.6 mg/dL (8.5-10.1); CARBON DIOXIDE 27.4 mmol/L (21.0-32.0); CREATININE - SERUM 0.9 mg/dL (0.6-1.3); POTASSIUM - SERUM 4.5 mmol/L (3.5-5.1); PROTEIN - SERUM 6.2 g/dL (6.4-8.2)
--- NOTE | 2020-08-11 08:26 | NUR ---
AM MEDS GIVEN INCLUDING PRN PAIN MEDICATION. PT AWAKE AND ALERT, RR EVEN NON LABORED. NO DISTRESS NOTED. PT ANSWERS QUESTIONS APPROP. NO NEEDS VOICED. CLWR.
[2020-08-11 08:44] VITALS: BP 106/58
--- NOTE | 2020-08-11 09:53 | NUR ---
PREOP MEDS GIVEN PER EMAR. PT RR EVEN NON LABORED. PT DENIES ANY FURTHER NEEDS, PT TALKING ON CELLPHONE AT THIS TIME. CLWR.
--- NOTE | 2020-08-11 10:31 | NUR ---
PT OFF UNIT TO MRI CT TECH
--- NOTE | 2020-08-11 10:58 | NUR ---
PT ARRIVED BACK FROM PHONE REPRESENTATIVE AT THIS TIME. RR EVEN NON LABORED. VS STABLE. PT DENIES ANY NEEDS AT THIS TIME. CLWR.
[2020-08-11] MEDS ORDERED: NYSTATIN1 PWD TOPICAL (11:40)
[2020-08-11] MEDS ORDERED: NITROQUICK0.4 MG SL (11:41)
--- NOTE | 2020-08-11 13:19 | NUR ---
VS STABLE. PT ABLE TO SIT UP AT THIS TIME. PT WILL D/C HOME TODAY. PT AWARE AND STATES SHE WILL CALL HER FAMILY MEMBER FOR TRANSPORTATION HOME.
[2020-08-11 13:36] VITALS: BP 112/69
--- NOTE | 2020-08-11 14:15 | NUR ---
D/C INSTRUCTIONS GIVEN TO PT AT THIS TIME, HANDOUT WITH EDUCATION GIVEN. PT STATES UNDERSTANDING AND DENIES ANY QUESTIONS. IV TO LEFT WRIST D/C, CATHETER INTACT, DRESSING APPLIED. IMAGING TECHNICIAN ASSISTED PT WITH GETTING DRESSED FOR DEPARTURE. PT RR EVEN NON LABORED, VS STABLE. DRESSING TO RIGHT GROIN, C/D/I. NO BLOOD NOTED. PT STATES HER RIDE HOME IS ALMOST HERE. NO FURTHER NEEDS OR QUESTIONS VOICED. CLWR.
--- NOTE | 2020-08-11 14:20 | NUR ---
PT WHEELED TO PRIVATE VEHICLE WITH PREDICTIVE MAINTENANCE TECHNICIAN AT THIS TIME, ALL BELONGINGS PAPERWORK AND EDUCATION WITH PT TIME OF D/C. NO DISTRESS NOTED ON DEPARTURE.
--- NOTE | 2020-08-12 08:47 | CN ---
PATIENT NAME:JJ FIELD MEDICAL RECORD: [id number] : 64 LOCATION:DMaria Isabel D.2116 ADMIT DATE: 08/09/20 ACCOUNT: [id number] CONSULTING PHYSICIAN: KORY SINCLAIR MD REFERRING PHYSICIAN: PALOMO OLIVIER MD DATE OF CONSULTATION: 08/10/2020 HISTORY OF PRESENT ILLNESS: A 59-year-old female with a history of coronary artery disease, hypertension, hyperlipidemia, admitted with acute coronary syndrome. Symptomatology actually began approximately 3 weeks ago. She lives a single flight of stairs at her apartment. Began having chest tightness, pressure with exertion. No chest tightness or pressure. Had a rest symptomatology, prompting a visit to the Emergency Room and admission for acute coronary syndrome. We are asked to see her concerning her cardiovascular status. PAST MEDICAL HISTORY: Includes: 1. History of hypertension. 2. Hyperlipidemia. 3. Coronary artery disease. ALLERGIES: INCLUDE AMOXICILLIN, TORADOL, ZYRTEC. SOCIAL HISTORY: Lives by herself. Nonsmoker, nondrinker. Easily takes care of all her ADLs. Tries to walk up and down the steps a few times a day for exercise purposes. MEDICATIONS: Include Xarelto 20 mg p.o. daily, Diovan 160 b.i.d., atorvastatin 80 every day, amitriptyline 100 at bedtime, Seroquel 25 at bedtime, aspirin 325 every day. REVIEW OF SYSTEMS: The patient reports easy bruising but reports no swollen glands. The patient reports no fever, no night sweats, no significant weight gain, no significant weight loss. No significant exercise tolerance. The patient reports no dry eyes, no irritation, no vision change. Patient reports no difficulty hearing and no ear pain. Patient reports no frequent nose bleeds or nose and sinus problems. Patient reports on arm pain on exertion. No shortness of breath while lying down. No history of heart murmur. Patient reports no cough, no wheezing or coughing up blood. Patient reports no abdominal pain, no vomiting. Normal appetite. No diarrhea and not vomiting blood. No nausea and no constipation. Patient reports no incontinence. No difficulty urinating. No hematuria. No increased frequency. Patient reports no muscle aches. No weakness, no arthralgias, no back pain. No swelling of the extremities. Patient reports no abnormal mole, no jaundice, no rashes. Reports no loss of consciousness. No weakness and no numbness. No seizures, dizziness, or headaches. The patient reports no depression, no sleep disturbance, feeling safe in a relationship and no alcohol abuse. Patient reports on fatigue. Reports no runny nose or sinus pressure. No itching, no hives, and no frequent sneezing. PHYSICAL EXAMINATION: GENERAL: In no acute distress, appears stated age. HEENT: Normocephalic, atraumatic. NECK: No JVD or bruit. HEART: Regular. CONSULT REPORT [id number] JJ FIELD LUNGS: Fairly good air excursion. ABDOMEN: Soft and nontender. EXTREMITIES: Pulses 2+. There is no edema. DIAGNOSTIC DATA: EKG shows Q-waves laterally, high lateral leads. IMPRESSION: Acute coronary syndrome, progressive symptoms. PLAN: Diagnostic angiography, intervention based on the above. TRANSINT:[id number] Voice Confirmation ID: [id number] DOCUMENT ID: [id number] KORY SINCLAIR MD at 0847 CC: [id number] DICTATION DATE: 08/10/20 1039 TIRE REPAIR MECHANIC: 08/10/20 1401 DIS IN 08/11/20 [facility] [address] [place] [address]
--- NOTE | 2020-08-12 08:48 | EC ---
PATIENT:JJ FIELD DATE OF SERVICE: 08/09/20 SEX: F MEDICAL RECORD: [id number] DATE OF : 64 LOCATION:D.M2 D.211 AGE OF PATIENT: 59 ADMISSION DATE: 08/09/20 REFERRING PHYSICIAN: INTERPRETING PHYSICIAN: KORY SINCLAIR MD ECHOCARDIOGRAM REPORT ECHO CHARGES 4 ECHO COMPLETE Date: 08/10/20 CLINICAL DIAGNOSIS: CP ECHOCARDIOGRAPHIC MEASUREMENTS (adult normal given) AC root (d.<3.7cm) 3.0 cm LV Septum d (<1.2 cm> 1.5 cm Valve Excursion 2.0 cm LV Septum (systole) 1.9 cm Left Atria (s.<4.0cm> 3.7 cm LVPW d(<1.2cm) 1.2 cm RV (d.<2.3cm) 2.4 cm LVPW (sytole) 2.0 cm LV diastole(<5.6CM) 4.6 cm MV E-F(>70mm/sec) cm LV systole 2.9 cm LVOT Diameter 1.7 cm MV exc.(>10mm) cm Est.ejection fraction (50-75%) % DOPPLER: LVIT cm/sec A 86.0 cm/sec E 108 cm/sec LA cm/sec RVSP 31.0 mmHg LVOT 163 cm/sec AOP1/2T m/s Asc. Ao 187 cm/sec RVOT 76.0 cm/sec RA cm/sec PA 120 cm/sec AV Gradient Peak 14.0 mmHg AV Mean 6.4 mmHg AV Area 1.5 cm MV Gradient Peak 6.3 mmHg MV Mean 2.2 mmHg MV Area cm COMMENTS: Interstate Planner: 1 CAYDEN ANDREWSOE Green Marketer: 3 Dr. Caldera TAPE# PACS Pericardial Effusion N DATE OF SERVICE: Adequate 2D, color-flow imaging, spectral Doppler, and M-Mode. FINDINGS: LVH is present. LV internal dimensions are normal. Wall motion is normal. EF is greater than or equal to 55%. Aortic valve is tricuspid. No evidence of stenosis by Doppler interrogation. Left atrium is normal at 3.7 cm. Mitral valve shows no prolapse. Trace MR. Right side is grossly normal. Trace TR. TRANSINT:[id number] Voice Confirmation ID: [id number] DOCUMENT ID: [id number] ECHOCARDIOGRAM REPORT [id number] JJ FIELD GREGORY A MD at 0848 CC: [id number] DICTATION DATE: 08/11/20 1314 CLOTH PACKER: 08/11/20 2313 DIS IN 08/11/20 [facility] [address] [place] [id number]
--- NOTE | 2020-08-12 08:48 | OP ---
PATIENT NAME: JJ FIELD MEDICAL RECORD: [id number] :64 LOCATION:D.M2 D.2115 ADMISSION DATE:08/09/20 SURGEON: KORY SINCLAIR MD DATE OF OPERATION: 08/11/2020 PROCEDURE: Left heart catheterization, selective coronary angiography, right femoral artery approach. CATHETERS: A 5-[place]ank[place] sheath, 5/4 left and right Stephen. 5/4 pig. The procedure was well tolerated. The patient returned to santizo. Sheath removed. ExoSeal device placed. FINDINGS: Left ventriculography in 30-degree FARMER view: Normal wall motion and normal systolic function. CORONARY ANATOMY: Left main: Left main is free of disease. LAD: LAD is free of disease in diagonal system. Circumflex: Circumflex is free of disease as in the marginal system. Right coronary artery: Dominant artery, gives rise to PDA, free of disease. IMPRESSION: Normal LV systolic function. Normal coronary anatomy. TRANSINT:[id number] Voice Confirmation ID: [id number] DOCUMENT ID: [id number] KORY SINCLAIR MD at 0848 CC: [id number] DICTATION DATE: 08/11/20 1048 DIP FILLER: 08/11/202041 DIS IN 08/11/20 [facility] [address] [place] [address]
== END 2020-08-11 14:20 | disposition home or self-care (01) ==
LOC: D.ER 13:04 → OBSVTIME 15:40 → D.M2 15:40
PROVIDERS: Family Medicine; Internal Medicine Interventional Cardiology; ADMIT Emergency Medicine; ATTEND Emergency Medicine
DX: R07.9 Chest pain, unspecified (principal); I10 Essential (primary) hypertension; J44.9 Chronic obstructive pulmonary disease, unspecified; K21.9 Gastro-esophageal reflux disease without esophagitis; Z86.73 Personal history of transient ischemic attack (TIA), and cerebral infarction without residual deficits; Z72.0 Tobacco use; E78.5 Hyperlipidemia, unspecified; F31.9 Bipolar disorder, unspecified

== ENCOUNTER 2020-08-21 18:22 | Emergency (ER) | payer MEDICARE, MEDICAID ==
[~2020-08-21] VITALS: Ht 152.4 cm; Wt 86.4 kg
[~2020-08-21 18:22] MED LIST changes: +NITROQUICK0.4 MG SL; +NYSTATIN1 PWD TOPICAL
[2020-08-21 18:26] VITALS: BP 119/74; Ht 152.4 cm; Wt 86.4 kg
[2020-08-21 19:12] LABS: BASOPHILS 0.3 % (0-2); EOSINOPHILS 1.4 % (0-7); HEMATOCRIT 34.4 % (36.0-48.0); HEMOGLOBIN 11.4 g/dL (12-16); IMMATURE GRANULOCYTES 0.1 % (0-5); LYMPHOCYTE ABS# 1.88 10x3/uL (1.18-3.74); LYMPHOCYTES 25.9 % (15-50); MCH 28.7 pg (26.0-34.0); MCHC 33.1 g/dL (31.0-37.0); MCV 86.6 fL (80.0-100.0); MEAN PLATELET VOLUME 9.7 fL (7.4-10.4); MONOCYTES 7.6 % (2-11); NEUTROPHILS 64.7 % (40-80); RBC 3.97 10x6/uL (4.00-5.40); RDW 15.8 % (11.5-14.5); WBC 7.3 10x3/uL (4.8-10.8)
[2020-08-21 19:21] LABS: PLATELET COUNT 374 10x3/uL (130-400)
[2020-08-21 19:28] LABS: INR 1.3 (0.85-1.17)
[2020-08-21 19:31] LABS: CALCIUM 9.1 mg/dL (8.5-10.1); CARBON DIOXIDE 26.4 mmol/L (21.0-32.0); POTASSIUM - SERUM 3.4 mmol/L (3.5-5.1)
[2020-08-21 19:37] LABS: ALBUMIN 3.8 g/dL (3.4-5.0); BILIRUBIN - TOTAL 0.28 mg/dL (0.2-1.3); PROTEIN - SERUM 7.4 g/dL (6.4-8.2)
[2020-08-21] MEDS ORDERED: ANUSOL-HC25 MG RC (20:03)
[2020-08-21] MEDS ORDERED: COLACE100 MG PO (20:03)
== END 2020-08-21 20:15 | disposition home or self-care (01) ==
LOC: D.ER 18:22
PROVIDERS: Emergency Medicine
DX: K64.9 Unspecified hemorrhoids (principal); E87.6 Hypokalemia; E03.9 Hypothyroidism, unspecified; Z86.73 Personal history of transient ischemic attack (TIA), and cerebral infarction without residual deficits; I10 Essential (primary) hypertension; K21.9 Gastro-esophageal reflux disease without esophagitis; Z72.0 Tobacco use

== ENCOUNTER 2020-09-14 20:09 | Emergency (ER) | payer MEDICARE, MEDICAID ==
[~2020-09-14] VITALS: Ht 152.4 cm; Wt 86.4 kg
[~2020-09-14 20:09] MED LIST changes: +ANUSOL-HC25 MG RC; +COLACE100 MG PO
[2020-09-14 20:13] VITALS: Ht 152.4 cm; Wt 86.4 kg
[2020-09-14] MEDS ORDERED: MEDROL DOSE PACK4 MG PO (20:15)
[2020-09-14 20:33] LABS: AMORPHOUS SEDIMENT >1+ LPF (NONE SEEN); BACTERIA MODERATE HPF (NONE SEEN); BILIRUBIN NEGATIVE (NEGATIVE); KETONE NEGATIVE (NEGATIVE); NITRITE NEGATIVE (NEGATIVE); UROBILINOGEN NORMAL mg/dL (< 2); WHITE CELLS - URINE OCC HPF (0-4)
[2020-09-14 20:38] LABS: BASOPHILS 0.2 % (0-2); EOSINOPHILS 0.3 % (0-7); HEMATOCRIT 39.8 % (36.0-48.0); IMMATURE GRANULOCYTES 0.3 % (0-5); LYMPHOCYTE ABS# 1.88 10x3/uL (1.18-3.74); LYMPHOCYTES 17.2 % (15-50); MCHC 32.7 g/dL (31.0-37.0); MCV 88.6 fL (80.0-100.0); MEAN PLATELET VOLUME 10.1 fL (7.4-10.4); MONOCYTES 4.6 % (2-11); NEUTROPHIL ABS# 8.48 10x3/uL (1.56-6.13); NEUTROPHILS 77.4 % (40-80); RBC 4.49 10x6/uL (4.00-5.40); RDW 15.5 % (11.5-14.5); WBC 10.9 10x3/uL (4.8-10.8)
[2020-09-14 20:39] LABS: PLATELET COUNT 523 10x3/uL (130-400)
[2020-09-14 20:49] LABS: ANION GAP 15.4 mmol/L (8-16); CALCIUM 8.9 mg/dL (8.5-10.1); CARBON DIOXIDE 26.6 mmol/L (21.0-32.0); CREATININE - SERUM 1.2 mg/dL (0.6-1.3)
[2020-09-14 20:55] LABS: ALBUMIN 4.3 g/dL (3.4-5.0); BILIRUBIN - TOTAL 0.45 mg/dL (0.2-1.3); PROTEIN - SERUM 8.5 g/dL (6.4-8.2)
[2020-09-14 22:51] VITALS: BP 147/89
== END 2020-09-14 22:51 | disposition home or self-care (01) ==
LOC: D.ER 20:09
PROVIDERS: Family Medicine
DX: R10.31 Right lower quadrant pain (principal)

== ENCOUNTER 2020-09-29 17:46 | Emergency (ER) | payer MEDICARE, MEDICAID ==
[~2020-09-29] VITALS: Ht 152.4 cm; Wt 93.6 kg
[2020-09-29 17:51] VITALS: Ht 152.4 cm; Wt 93.6 kg
[2020-09-29 18:32] LABS: BASOPHILS 0.7 % (0-2); HEMATOCRIT 33.1 % (36.0-48.0); HEMOGLOBIN 11.1 g/dL (12-16); LYMPHOCYTES 25.4 % (15-50); MCH 29.5 pg (26.0-34.0); MCHC 33.6 g/dL (31.0-37.0); MCV 87.7 fL (80.0-100.0); MONOCYTES 6.8 % (2-11); NEUTROPHILS 65.1 % (40-80); RBC 3.77 10x6/uL (4.00-5.40); RDW 16.4 % (11.5-14.5); WBC 5.6 10x3/uL (4.8-10.8)
[2020-09-29 18:34] LABS: PLATELET COUNT 338 10x3/uL (130-400)
[2020-09-29 18:58] LABS: CALC OSMOLALITY 283 mosm/kg (275-300); CALCIUM 8.8 mg/dL (8.5-10.1); CARBON DIOXIDE 29.7 mmol/L (21.0-32.0); CHLORIDE - SERUM 104 mmol/L (98-107); CREATININE - SERUM 1.1 mg/dL (0.6-1.3); GLUCOSE 118 mg/dL (74-106); POTASSIUM - SERUM 3.8 mmol/L (3.5-5.1); SODIUM 141 mmol/L (136-145); UREA NITROGEN 19 mg/dL (7-18); eGFR NON AFRICAN AMERICAN 54 mL/min (90-120)
[2020-09-29 19:07] LABS: ALBUMIN 3.7 g/dL (3.4-5.0); ALKALINE PHOSPHATASE 108 U/L (30-120); ALT (SGPT) 25 U/L (10-68); BILIRUBIN - TOTAL 0.34 mg/dL (0.2-1.3); PROTEIN - SERUM 7.2 g/dL (6.4-8.2)
[2020-09-29 19:10] LABS: TROPONIN-I < 0.017 ng/mL (0.000-0.060)
[2020-09-29 19:30] VITALS: BP 122/76
== END 2020-09-29 19:59 | disposition other institution (70) ==
LOC: D.ER 17:46
PROVIDERS: Student in an Organized Health Care Education/Training Program
DX: R07.9 Chest pain, unspecified (principal); I10 Essential (primary) hypertension; J44.9 Chronic obstructive pulmonary disease, unspecified; Z72.0 Tobacco use

== ENCOUNTER 2020-10-02 21:27 | Emergency (ER) | payer MEDICARE, MEDICAID ==
[~2020-10-02] VITALS: Ht 152.4 cm; Wt 93.6 kg
[2020-10-02 21:33] VITALS: BP 171/88; Ht 152.4 cm; Wt 93.6 kg
[2020-10-02] MEDS ORDERED: BUSPAR10 MG PO (21:36)
[2020-10-02 22:23] LABS: BASOPHILS 0.7 % (0-2); EOSINOPHILS 3.4 % (0-7); HEMATOCRIT 33.6 % (36.0-48.0); LYMPHOCYTES 31.3 % (15-50); MCH 28.9 pg (26.0-34.0); MCHC 32.7 g/dL (31.0-37.0); MCV 88.4 fL (80.0-100.0); MEAN PLATELET VOLUME 7.8 fL (7.4-10.4); NEUTROPHILS 56.6 % (40-80); PLATELET COUNT 370 10x3/uL (130-400); RDW 16.3 % (11.5-14.5)
[2020-10-02 22:27] LABS: CALC OSMOLALITY 283 mosm/kg (275-300); CALCIUM 8.4 mg/dL (8.5-10.1); CHLORIDE - SERUM 105 mmol/L (98-107); CREATININE - SERUM 1.1 mg/dL (0.6-1.3); GLUCOSE 97 mg/dL (74-106); POTASSIUM - SERUM 4.3 mmol/L (3.5-5.1); SODIUM 141 mmol/L (136-145); UREA NITROGEN 21 mg/dL (7-18); eGFR NON AFRICAN AMERICAN 54 mL/min (90-120)
[2020-10-02 22:28] LABS: INR 1.18 (0.85-1.17); PROTIME 13.9 SECONDS (11.6-15.0)
[2020-10-02 22:29] LABS: APTT 32.8 SECONDS (22.8-39.4)
[2020-10-02 22:44] LABS: ALBUMIN 3.8 g/dL (3.4-5.0); ALKALINE PHOSPHATASE 103 U/L (30-120); ALT (SGPT) 28 U/L (10-68); BILIRUBIN - TOTAL 0.45 mg/dL (0.2-1.3); CKMB 0.5 U/L (0.0-3.6); CREATINE KINASE 91 UL (21-215); MAGNESIUM - SERUM 2.4 mg/dL (1.8-2.4); PROTEIN - SERUM 7.3 g/dL (6.4-8.2)
[2020-10-02 22:50] LABS: TROPONIN-I < 0.017 ng/mL (0.000-0.060)
[2020-10-03 00:36] LABS: AMYLASE - SERUM 65 U/L (25-115); LIPASE 152 U/L (73-393); PRO BNP 12 pg/mL (0-125)
== END 2020-10-03 05:55 | disposition left against medical advice (07) ==
LOC: D.ER 21:27
PROVIDERS: Emergency Medicine
DX: R07.9 Chest pain, unspecified (principal); Z53.21 Procedure and treatment not carried out due to patient leaving prior to being seen by health care provider

== ENCOUNTER 2020-10-25 16:49 | Emergency (ER) | payer MEDICARE, MEDICAID ==
[~2020-10-25] VITALS: Ht 152.4 cm; Wt 90.9 kg
[~2020-10-25 16:49] MED LIST changes: +BUSPAR10 MG PO
[2020-10-25 16:57] VITALS: Ht 152.4 cm; Wt 90.9 kg
[2020-10-25 18:10] LABS: CALC OSMOLALITY 281 mosm/kg (275-300); CARBON DIOXIDE 25.5 mmol/L (21.0-32.0); CHLORIDE - SERUM 105 mmol/L (98-107); CREATININE - SERUM 1.2 mg/dL (0.6-1.3); GLUCOSE 107 mg/dL (74-106); SODIUM 140 mmol/L (136-145); UREA NITROGEN 21 mg/dL (7-18); eGFR NON AFRICAN AMERICAN 49 mL/min (90-120)
[2020-10-25 18:12] LABS: BASOPHILS 0.5 % (0-2); EOSINOPHILS 1.6 % (0-7); HEMATOCRIT 34.3 % (36.0-48.0); HEMOGLOBIN 11.3 g/dL (12-16); LYMPHOCYTES 22.8 % (15-50); MCHC 33.1 g/dL (31.0-37.0); MCV 87.8 fL (80.0-100.0); MEAN PLATELET VOLUME 7.7 fL (7.4-10.4); MONOCYTES 8.6 % (2-11); NEUTROPHILS 66.5 % (40-80); PLATELET COUNT 432 10x3/uL (130-400); RDW 16.3 % (11.5-14.5)
[2020-10-25 18:25] LABS: ALBUMIN 4.2 g/dL (3.4-5.0); ALKALINE PHOSPHATASE 101 U/L (30-120); ALT (SGPT) 32 U/L (10-68); BILIRUBIN - TOTAL 0.49 mg/dL (0.2-1.3); CKMB 0.7 U/L (0.0-3.6); CREATINE KINASE 115 UL (21-215); MAGNESIUM - SERUM 2.3 mg/dL (1.8-2.4); PROTEIN - SERUM 7.8 g/dL (6.4-8.2); TROPONIN-I < 0.017 ng/mL (0.000-0.060)
[2020-10-25] MEDS ORDERED: HYDROCODONE-AC1 EAC2 PO ×2 (22:10→22:11)
[2020-10-25 22:20] VITALS: BP 122/56
== END 2020-10-25 22:21 | disposition home or self-care (01) ==
LOC: D.ER 16:49
PROVIDERS: Family Medicine
DX: S39.012A Strain of muscle, fascia and tendon of lower back, initial encounter (principal); S16.1XXA Strain of muscle, fascia and tendon at neck level, initial encounter; I10 Essential (primary) hypertension; J44.9 Chronic obstructive pulmonary disease, unspecified; Z72.0 Tobacco use; Z79.82 Long term (current) use of aspirin; R07.9 Chest pain, unspecified; M54.9 Dorsalgia, unspecified; X50.0XXA Overexertion from strenuous movement or load, initial encounter; Y93.9 Activity, unspecified; Y92.9 Unspecified place or not applicable